=== PATIENT | male | born 1945 | race Caucasian/White ===

== ENCOUNTER 2022-04-23 09:46 | Inpatient (IN) ==
[2022-04-23] MEDS ORDERED: SODIUM CHLORIDE 0.9% 1000ML 1,000 ML IV SCH (10:15)
--- NOTE | 2022-04-23 11:07 | XRay Report ---
SINGLE VIEW CHEST CLINICAL HISTORY: Generalized weakness. FINDINGS: An AP, portable, upright chest radiograph is compared to study dated 02/12/2022 and correlate d with chest CT dated 04/22/2022. The cardiomediastinal silhouette is unremarkable. Emphysema and autographer oj interstitial thickening is similar to previous. A large left perihilar mass lesion is again noted . Minimal airspace opacities are seen in the left lower lobe. No large pleural effusion is identified . The right lung appears clear noting basilar scarring/atelectasis. No pneumothorax is seen. The skel etal structures are osteopenic. A pathological fracture of the distal right clavicle was better seen on yesterday's CT scan. Osteolytic lesion is suggested in the left proximal humerus. IMPRESSION: 1. Emphysema and a large left perihilar mass lesion are unchanged. 2. There are minimal airspace opacities in the left lower lobe. Correlate clinically for evidence of a mild postobstructive pneumonitis. 3. The right lung appears clear. 4. A pathological fracture and lytic lesion of the distal right clavicle was better seen on yesterday 's CT scan. 5. An osteolytic lesion is suggested in the left proximal humerus. ACT 112: Negative or not required by law. Electronically signed by: Paul Clayton M.D. 04/23/2022 11:06 AM
[2022-04-23 11:16] LABS: Appearance Urine Clear (Clear); Bacteria Urine Automated Negative (Negative); Bilirubin Urine Negative (Negative); Blood Urine Negative (Negative); Color Urine Dark Yellow; Glucose Urine UA Negative (Negative); Ketones Urine Negative (Negative); Leukocyte Esterase Urine Negative (Negative); Nitrite Urine Negative (Negative); Protein Urine Trace (Negative); Specific Gravity Urine 1.019 (1.000-1.030); Urobilinogen Urine Negative (Negative)
[2022-04-23 11:20] LABS: Albumin Globulin Ratio 0.7 (0.9-2); Albumin Level 2.5 gm/dl (3.4-5.0); BUN Creatinine Ratio 19.3 (10-20); Bilirubin,Total 0.6 mg/dl (0.2-1.0); Calcium 10.2 mg/dl (8.5-10.1); Creatinine Clr Calc Pharmacy 40.7 ml/min; Est GFR (African American) 53.5 ml/min; Est GFR (Non-African American) 46.1 ml/min; Globulin 3.5 gm/dl (2.5-4.0); Magnesium 1.8 mg/dl (1.7-2.4); Phosphorus 3.2 mg/dl (2.5-4.9); Potassium 3.3 mmol/L (3.5-5.1)
[2022-04-23 11:30] LABS: Calcium Oxalate Crystals Urine Present (None Prsent)
[2022-04-23 11:30] LABS: Anisocytosis Present; Basophils # (auto) 0.02 K/uL (0-0.2); Basophils % (auto) 0.4 %; Hematocrit (blood only) 24.6 % (40.1-51.0); Hemoglobin 7.5 g/dl (14.0-18.0); Immature Granulocytes # (auto) 0.22 K/uL (0.00-0.02); Lymphocytes # (auto) 0.82 K/uL (1.2-3.4); Mean Corpuscular Hemoglobin 27.7 pg (25.0-34.0); Mean Corpuscular Hgb Conc 30.5 g/dL (32.0-36.0); Mean Corpuscular Volume 90.8 fL (80.0-100.0); Mean Platelet Volume 11.2 fL (9.4-12.4); Monocytes # (auto) 0.43 K/uL (0.24-0.82); Monocytes % (auto) 7.9 %; Neutrophils # (auto) 3.97 K/uL (1.4-6.5); Neutrophils % (auto) 72.7 %; Platelet Count 77 K/uL (130-400); Platelet Estimate Decreased (Normal); RDW Coefficient of Variation 19.9 % (11.5-14.5); RDW Standard Deviation 58.4 fL (36.4-46.3); Red Blood Count 2.71 M/uL (4.63-6.08); White Blood Count 5.46 K/ul (4.8-10.8)
[2022-04-23 11:31] LABS: Mucus Urine Present (None Prsent); Renal Epithelial Cells Urine 0-5 /lpf (0-5)
[2022-04-23] MEDS ORDERED: SODIUM CHLORIDE 0.9% 250 ML IV PRN (11:44)
[2022-04-23] MEDS ORDERED: ACETAMINOPHEN 1,000 MG/100 ML VIAL IV STA (12:19)
--- NOTE | 2022-04-23 12:35 | Electrocardiogram Report ---
Test Reason : Blood Pressure : / mmHG Vent. Rate : 098 BPM Atrial Rate : 098 BPM P-R Int : 136 ms QRS Dur : 084 ms QT Int : 368 ms P-R-T Axes : 065 033 086 degrees QTc Int : 469 ms Poor data quality, interpretation may be adversely affected Sinus rhythm with Premature supraventricular complexes Low voltage QRS Nonspecific T wave abnormality Abnormal ECG When compared with ECG of 29-MAR-2010 02:20, Premature supraventricular complexes are now Present Confirmed by Rod Krause ([id number]) on 04/23/2022 12:35:25 PM Referred By: Vilma Kaiser Confirmed By:Eligio Krause
[2022-04-23] MEDS ORDERED: OPTIRAY 320 100ml IV ONE (13:23)
--- NOTE | 2022-04-23 13:51 | CT Scan Report ---
CT abd pelvis IV con only CLINICAL HISTORY: lung cancer, lower abd pain, anemia TECHNIQUE: Helical axial images of the abdomen and pelvis were obtained and displayed. Automated dose lowering techniques and/or adjustment according to patient size were utilized for this exam. This e xam was performed with intravenous contrast. CT DOSE: 507.65 mGycm COMPARISON: Comparison is made to CT chest 04/22/2022 and PET/CT 02/25/2022 FINDINGS: Lower chest: Overall similar appearance of bibasilar atelectasis and left lower lung airspace opacit y compared to prior CT chest 04/22/2022. Liver: Unremarkable. No focal lesions are seen. Gallbladder and biliary tree: The gallbladder is distended but unremarkable. No intra- or extrahepati c biliary ductal dilation. Pancreas: Unremarkable, no focal lesions. Spleen: Unremarkable. Adrenals: Unremarkable. Kidneys and ureters: There is a large right renal cyst. Additional smaller hypodensities are seen in the bilateral kidneys. Bladder: Tucker catheter is seen. Reproductive organs: Unremarkable. Bowel: A large stool burden is seen with possibly inspissated stool ball in the rectum. Mild rectal w all thickening is seen. Diverticulosis is seen without evidence of diverticulitis. Lymph nodes Retroperitoneal: Unremarkable. Mesenteric: Unremarkable. Pelvic: Unremarkable. Peritoneum: Normal. Vessels: Atherosclerotic calcifications are seen. Abdominal wall: Unremarkable. Bones: A right total hip arthroplasty is seen. Degenerative changes are seen in the spine at the leve l disc osteophyte disease. No definite bony lesions are seen. IMPRESSION: 1. There is a large stool burden with possibly inspissated stool ball in the rectum. There is mild r ectal wall thickening and stercoral colitis cannot be entirely excluded. 2. Similar appearance of bibasilar atelectasis and left lower lung airspace opacity compared to rece nt chest CT. 3. Bladder is decompressed by Tucker catheter. 4. Additional findings as above. ACT 112: Negative or not required by law. Electronically signed by: Sharad Johns M.D. 04/23/2022 1:50 PM
[2022-04-23] MEDS ORDERED: bisacodyL 10 MG SUPP PR STA (14:14)
[2022-04-23] MEDS ORDERED: POTASSIUM CHLORIDE / WTR 10 MEQ/100 ML PLCT IV SCH (14:30)
--- NOTE | 2022-04-23 15:42 | History & Physical Report ---
Date of Service April 23, 2022 Assessment & Plan (1) Squamous cell lung cancer: Plan: Diagnosed in 02/2022. S/p brain radiation & one dose of carboplatin/paclitaxel/pembrolizumab on 04/06/2022. - Now with anemia - likely bone marrow suppression from chemotherapy and cancer. No indication of acute bleeding. - Receiving 1 unit PRBCs in the ER; follow tomorrow - Family realistic about his case. Discussed the results of his chest CT to them from 04/22 and that it shows increasing cancer burden. Daughter asks for CM consult for extra home help. - Start Unasyn for possible post-obstructive pneumonitis - Wound care consult for sacral wounds Palliative care discussion started in the ER. Family may be receptive to home hospice if patient's condition does not improve, but I did not broach this in the acute setting. (2) Hypotension: Plan: BP in the ER was 90/50, but did dip down to 80/50 temporarily. Ddx includes hypovolemia (most likely) vs. sepsis. Hemorrhagic unlikely given clinical picture. - Aggressive fluid administration - Stat cortisol to r/o adrenal insufficiency (3) Fecal impaction: Plan: CT a/p on 04/23 notes "stool burden with possibly inspissated stool ball in the rectum." notes no BM in 2 days. - Continue Miralax PO - Fleet enema x 3 to attempt to loosen and relieve stool burden (4) DVT prophylaxis: Plan: Lovenox 40 mg SQ daily & SCDs -> Low concern for acute bleeding and patient is extremely high risk given age and active cancer. - Monitor hgb & platelets Extensive code discussion with patient and family - Patient willing to have 1 round of CPR/defibrillation (~5 minutes). No intubation or ventilation. Family willing to attempt central line and pressors for 1-2 days if needed. (5) Acute renal failure: History of Present Illness Primary Care Provider: Keanu Hayes PA-C 76yo M w/ hx of metastatic lung cancer who presents with failure to thrive at home. The patient was diagnosed with metastatic squamous cell carcinoma in 02/2022. He [facility] to [facility] and was started on dose-reduced carboplatin/paclitaxel/pembrolizumab on 04/06/2022. It is meant to be Q3w, so he has only received that one dose. Prior to that, he received radiation therapy to 3 lesions in the brain that are presumed to be metastatic lesions. His family notes that over the last 2 weeks, he has stopped eating and drinking. No nausea, vomiting, or diarrhea as they had worried, but just no appetite. They have to push him to consume anything. He has lost about 13 lbs in 3 weeks. He has also stopped drinking and hadn't had any urine output in almost 2 days, so this is why they brought him in. The patient reports to me some left-sided chest pain, but denies any shortness of breath, any pain elsewhere. Denies fevers/chills. notes some constipation, but has been giving him Miralax. Allergies Allergy/AdvReac Type Severity Reaction Status Date / Time Penicillins Allergy Unknown RXN Verified 04/03/22 13:12 UNKNOWN PER PT Home Medications Medication Instructions Recorded Confirmed Type multivitamin 1 tab PO QAM 11/26/21 04/23/22 History omega 8-erj-tsd-fish oil 1,000 mg 1 cap PO QAM 11/26/21 04/23/22 History (120 mg-180 mg) capsule (Fish Oil) Flutter Valve #1 ea 12/03/21 03/11/22 Rx albuterol sulfate 90 mcg/actuation 2 puff inhalation Q6H PRN 12/03/21 04/23/22 Rx aerosol inhaler Shortness Of Breath Or Wheezing #18 grams mirtazapine 15 mg tablet (Remeron) 15 mg PO QAM 04/03/22 04/23/22 History fluconazole 100 mg tablet 100 mg PO DAILY@1500 04/23/22 04/23/22 History (Diflucan) pembrolizumab 25 mg/mL intravenous 0 mg IV UD 04/23/22 04/23/22 History solution (Keytruda) umeclidinium 62.5 mcg-vilanterol 1 inh inhalation QAM 04/23/22 04/23/22 History 25 mcg/actuation powdr for inhalation (Anoro Ellipta) Past Med/Surg History Medical History Abnormal chest CT Cavitary pneumonia Chronic bronchitis COPD (chronic obstructive pulmonary disease) Elevated cholesterol Ex-smoker Exertional shortness of breath Lyme disease Pneumonia Surgical History History of right hip replacement S/P bronchoscopy S/P left rotator cuff repair Status post right knee replacement Family History Brother Cancer Several brothers with cancer dx Father Cancer Mother Myocardial infarction Social History Smoking Status: Former smoker Hx Alcohol Use: No Hx Substance Use: No Preferred Language: Luxembourgish Communication Ability: Effective Visual Impairment: No Limitations Hearing Ability: Hard of Hearing Computer Networker Required: No Beliefs That Will Affect Care: None marital status: Current Living Situation: Spouse current occupational status: retired Feels Safe at Home: Yes caffeine: Yes Physical Activity Frequency: Does not Exercise Assistive Devices: None Review of Systems Review of Systems: All systems reviewed & are unremarkable except as noted in HPI & below Physical Exam Constitutional: + ill appearing, + frail appearing and + in distress Eyes: EOM intact bilaterally; no conjunctival abnormality ENMT: external ear and nose normal, oropharynx normal Neck: trachea midline, no thyromegaly normal visual inspection Respiratory: normal respiratory effort, lungs clear to auscultation no respiratory distress Cardiovascular: RRR, no murmur, no edema Gastrointestinal (Abdomen): Inspection/Auscultation: abdomen normal to inspection; abdomen not distended Musculoskeletal: no cyanosis or clubbing, extremities motor strength 5/5 Skin: no rashes, warm and dry Neurologic: moves all extremities and awake Psychiatric: Orientation: alert, oriented to person and cooperative Results & Data Results & Data ([facility]) Vital Signs (Past 12 Hours) Vital Signs Temp Pulse Pulse Resp BP BP Pulse Ox 04/23/22 15:00 36.3 C L 68 20 89/48 L 97 04/23/22 14:45 36.3 C L 70 18 88/53 L 98 04/23/22 14:44 36.3 C L 70 18 89/53 L 97 04/23/22 14:29 36.4 C L 75 16 89/54 L 99 04/23/22 13:57 75 16 94/50 L 99 04/23/22 12:54 77 16 107/55 L 100 04/23/22 12:02 86 16 90/59 L 96 04/23/22 11:28 81 16 101/57 L 98 04/23/22 10:46 94 H 16 82/53 L 94 04/23/22 10:45 94 04/23/22 09:50 36.5 C 71 18 76/49 L 98 O2 Del Method 04/23/22 15:00 04/23/22 14:45 04/23/22 14:44 04/23/22 14:29 04/23/22 13:57 Room Air 04/23/22 12:54 Room Air 04/23/22 12:02 Room Air 04/23/22 11:28 Room Air 04/23/22 10:46 Room Air 04/23/22 10:45 Room Air 04/23/22 09:50 Room Air Code Status & VTE Plan VTE Prophylaxis Plan VTE Prophylaxis will be ordered: Yes PG Care Time/CCT Total # of Minutes Spent Total Time Spent with Patient: Total time spent is greater than 50% in coordination of care (as documented) at patient's floor/unit and/or counseling patient: Coding Level of Care Code 74603 Initial Inpt Care Lvl 3 Diagnoses Squamous cell lung cancer C34.90 Hypotension I95.9 Fecal impaction K56.41 DVT prophylaxis Z29.9 Acute renal failure N17.9
[2022-04-23] MEDS ORDERED: ALBUTEROL HFA 8 GM INHALER INH PRN (18:22)
[2022-04-23] MEDS ORDERED: ONDANSETRON INJ 2 MG/ML 2 ML VIAL IV PRN (18:22)
[2022-04-23] MEDS ORDERED: POTASSIUM CHLORIDE 40 MEQ in SODIUM CHLORIDE 0.9% 1000ML 1,000 ML IV SCH (18:30)
[2022-04-23] MEDS: AMPICILLIN/SULBACTAM SOD 3,000 MG in 0.9 % SODIUM CHLORIDE 100 ML IV SCH (19:50)
[2022-04-23] MEDS: POLYETHYLENE (MIRALAX) 17 GM PACK PO SCH (20:06)
[2022-04-23] MEDS: SOD PHOSPHATE/SOD BIPHOSPHATE ENEMA 132 ML BTL PR SCH (20:06)
[2022-04-24] MEDS: AMPICILLIN/SULBACTAM SOD 3,000 MG in 0.9 % SODIUM CHLORIDE 100 ML IV SCH ×4 (01:10→18:15)
[2022-04-24 07:19] LABS: Hematocrit (blood only) 24.8 % (40.1-51.0); Hemoglobin 7.8 g/dl (14.0-18.0); Mean Corpuscular Hemoglobin 27.9 pg (25.0-34.0); Mean Corpuscular Hgb Conc 31.5 g/dL (32.0-36.0); Mean Corpuscular Volume 88.6 fL (80.0-100.0); Mean Platelet Volume 10.5 fL (9.4-12.4); Platelet Count 66 K/uL (130-400); RDW Coefficient of Variation 20.1 % (11.5-14.5); RDW Standard Deviation 56.6 fL (36.4-46.3); White Blood Count 6.08 K/ul (4.8-10.8)
[2022-04-24] MEDS: SOD PHOSPHATE/SOD BIPHOSPHATE ENEMA 132 ML BTL PR SCH (07:31)
[2022-04-24 07:47] LABS: Albumin Globulin Ratio 0.7 (0.9-2); Albumin Level 2.1 gm/dl (3.4-5.0); BUN Creatinine Ratio 29.6 (10-20); Bilirubin,Total 0.5 mg/dl (0.2-1.0); Calcium 8.9 mg/dl (8.5-10.1); Creatinine Clr Calc Pharmacy 52.6 ml/min; Est GFR (African American) 85.8 ml/min; Est GFR (Non-African American) 74.1 ml/min; Globulin 3.1 gm/dl (2.5-4.0); Magnesium 1.7 mg/dl (1.7-2.4); Phosphorus 3.1 mg/dl (2.5-4.9); Potassium 3.6 mmol/L (3.5-5.1); Total Protein 5.2 gm/dl (6.0-8.3)
[2022-04-24] MEDS: UMECLIDINIUM/VILANTEROL 62.5/25MCG 7 PUFFS/INHALER INH SCH (08:11)
[2022-04-24] MEDS: POLYETHYLENE (MIRALAX) 17 GM PACK PO SCH (08:12)
[2022-04-24] MEDS: ENOXAPARIN INJ 40 MG/0.4 ML SYR SQ SCH (08:15)
[2022-04-24] MEDS ORDERED: SODIUM CHLORIDE 0.9% 250 ML IV PRN (08:40)
[2022-04-24] MEDS ORDERED: MIRTAZAPINE TAB 15 MG TAB PO SCH (09:00)
--- NOTE | 2022-04-24 13:35 | Hospitalist Progress Note ---
Date of Service April 24, 2022 Assessment & Plan (1) Squamous cell lung cancer: Plan: Diagnosed in 02/2022 in the left lung.. With mets to the liver, brain, lymph nodes, and now with recent evidence of mets to the bones on CT chest 04/22. Now s/p brain radiation & one dose of carboplatin/paclitaxel/pembrolizumab on 04/06/2022. Since starting chemotherapy, has had significant failure to thrive, weight loss, low appetite, and now here with anemia and thrombocytopenia secondary to antineoplastic therapy -Supportive care, IV fluids, nutritional support with boost added, and treatment for postobstructive pneumonia, as well as transfusional support as below given Notified his oncologist that he is in house - Family realistic about his case. Discussed the results of his chest CT to them from 04/22 and that it shows increasing cancer burden in the bones. Daughter a sks for CM consult for extra home help. Consider palliative consultation if continues to deteriorate -Most likely, his upcoming chemotherapy next week will be delayed-we will discuss with his oncologist -Continue mirtazapine for appetite stimulation and he also recently got his medical card in the mail but has not started this yet (2) Pancytopenia due to antineoplastic chemotherapy: Plan: Hemoglobin down to 7.5 on arrival, only up to 7.8 after 1 unit PRBCs Transfuse 1 more unit PRBCs today Follow CBC in the morning Thrombocytopenia with platelets down to 66-monitor and hold Lovenox if drops below 50 Monitor for bleeding (3) Acute renal failure: Plan: Creatinine elevated on arrival at 1.45 secondary to dehydration from poor p.o. intake Now improved with IV fluids Follow BMP (4) Hypotension: Plan: Blood pressures remain borderline hypotensive with MAP 60-65 Secondary to hypovolemia and less likely sepsis cortisol to r/o adrenal insufficiency ordered and is normal Continue IV fluid hydration, PRBC transfusion for volume support (5) Pneumonia: Plan: Continue Unasyn for postobstructive pneumonia Transition Augmentin when taking p.o. better (6) Fecal impaction: Plan: CT a/p on 04/23 notes "stool burden with possibly inspissated stool ball in the rectum." notes no BM in 2 days prior to admission -Now with multiple bowel movements after fleets enema Follow Tucker catheter placed for presumed urinary retention-this may resolve now that his fecal impaction is resolved (7) Pathologic fracture: Plan: Right distal clavicle also with osteolytic bone lesion left proximal humerus seen on xray and osteolytic lesions seen on chest CT 04/22 -caution with handling him for care discussed with RN due to being at risk for fractures (8) Severe protein-calorie malnutrition: Plan: add Boost BMI 17.6 2/2 metastatic CA and chemotherapy (9) COVID: Plan: old infection from 6 weeks ago when multiple family members also had COVID. Because he tested positive on a home test at that time, Infection Control policy is to keep him on isolation precautions here no treatment needed as I do not believe he has active COVID (10) Sacral decubitus ulcer: Plan: Wound care consulted Offload pressure (11) Generalized weakness: Plan: Secondary to chemotherapy effect, anemia, dehydration Treating all of these things as above PT/OT consults placed (12) DVT prophylaxis: Plan: Lovenox 40 mg SQ daily & SCDs -> Low concern for acute bleeding and patient is extremely high risk given age and active cancer. - Monitor hgb & platelets Extensive code discussion with patient and family - Patient willing to have 1 round of CPR/defibrillation (~5 minutes). No intubation or ventilation. Family willing to attempt central line and pressors for 1-2 days if needed. Disposition-continued stay Admission and Anticipated Discharge Date Admission Date: April 23, 2022 Subjective Pt reports feeling very tired, weak, low appetite. Is having multiple BMs today after being given fleets enemas overnight as per RN. Denies CP, SOB. Telemetry with normal sinus rhythm, normal rates I discussed his care with his on the phone. She is requesting that he be on boost supplements. Review of Systems Review of Systems: All systems reviewed & are unremarkable except as noted in HPI & below Physical Exam Constitutional: + ill appearing and + cachectic; no acute distress Eyes: + anicteric sclerae ENMT: Nose: no external nose abnormality Neck: trachea midline, no thyromegaly Respiratory: normal respiratory effort; no labored breathing Auscultation: + crackles (Bilateral lower and middle lung quintero); no wheezes Cardiovascular: RRR, no murmur, no edema Gastrointestinal (Abdomen): normal bowel sounds, soft, nontender, no hepatosplenomegaly Musculoskeletal: Extremities: extremities normal to inspection; no cyanosis and no clubbing Skin: no rashes, warm and dry Neurologic: moves all extremities and awake; no focal motor deficits Psychiatric: Orientation: alert, oriented to person and cooperative Results & Data Results & Data ([facility]) Vital Signs (Past 12 Hours) Vital Signs Temp Pulse Pulse Resp BP BP Pulse Ox 04/24/22 12:55 36.7 C 93 H 18 84/55 L 96 04/24/22 12:20 36.4 C L 86 16 97/44 L 97 04/24/22 12:11 36.4 C L 87 18 109/54 L 91 04/24/22 11:20 36.4 C L 87 18 109/54 L 91 04/24/22 10:20 36.6 C 87 18 98/58 L 96 04/24/22 10:03 82 04/24/22 09:50 36.7 C 88 16 85/51 L 97 04/24/22 09:35 36.1 C L 90 16 83/51 L 98 04/24/22 09:19 36.2 C L 88 16 88/57 L 95 04/24/22 07:38 36.8 C 81 20 90/50 L 92 04/24/22 03:30 36.4 C L 86 20 99/60 L 92 O2 Del Method 04/24/22 12:55 04/24/22 12:20 04/24/22 12:11 04/24/22 11:20 04/24/22 10:20 04/24/22 10:03 04/24/22 09:50 04/24/22 09:35 04/24/22 09:19 04/24/22 07:38 Room Air 04/24/22 03:30 Room Air Laboratory Results 04/24/22 04/24/22 04/24/22 Range/Units 07:12 07:12 07:12 WBC 6.08 (4.8-10.8) K/ul RBC 2.80 L (4.63-6.08) M/uL Hgb 7.8 L (14.0-18.0) g/dl Hct 24.8 L (40.1-51.0) % MCV 88.6 (80.0-100.0) fL MCH 27.9 (25.0-34.0) pg MCHC 31.5 L (32.0-36.0) g/dL RDW Std Deviation 56.6 H (36.4-46.3) fL RDW Coeff of Ivett 20.1 H (11.5-14.5) % Plt Count 66 L (130-400) K/uL MPV 10.5 (9.4-12.4) fL Sodium 148 H (136-145) mmol/L Potassium 3.6 (3.5-5.1) mmol/L Chloride 113 H (98-107) mmol/L Carbon Dioxide 27 (21-32) mmol/L Anion Gap 8 (3-11) BUN 29 H (6-23) mg/dl Creatinine 0.98 D (0.6-1.4) mg/dl Est Cr Clr Drug Dosing 52.6 ml/min Est GFR ( Amer) 85.8 ml/min Est GFR (Non-Af Amer) 74.1 ml/min BUN/Creatinine Ratio 29.6 H (10-20) Glucose 69 L (70-99(Fasting)) mg/dl Calcium 8.9 (8.5-10.1) mg/dl Phosphorus 3.1 (2.5-4.9) mg/dl Magnesium 1.7 (1.7-2.4) mg/dl Total Bilirubin 0.5 (0.2-1.0) mg/dl AST 14 (13-39) U/L ALT 12 (7-52) U/L Alkaline Phosphatase 78 (34-104) U/L Total Protein 5.2 L (6.0-8.3) gm/dl Albumin 2.1 L (3.4-5.0) gm/dl Globulin 3.1 (2.5-4.0) gm/dl Albumin/Globulin Ratio 0.7 L (0.9-2) Procalcitonin (0-0.5) ng/ml Cortisol AM Sample 19.60 (6.2-22.6) mcg/dl Blood Type Antibody Screen Crossmatch 04/23/22 04/23/22 Range/Units 11:51 10:45 WBC (4.8-10.8) K/ul RBC (4.63-6.08) M/uL Hgb (14.0-18.0) g/dl Hct (40.1-51.0) % MCV (80.0-100.0) fL MCH (25.0-34.0) pg MCHC (32.0-36.0) g/dL RDW Std Deviation (36.4-46.3) fL RDW Coeff of Ivett (11.5-14.5) % Plt Count (130-400) K/uL MPV (9.4-12.4) fL Sodium (136-145) mmol/L Potassium (3.5-5.1) mmol/L Chloride (98-107) mmol/L Carbon Dioxide (21-32) mmol/L Anion Gap (3-11) BUN (6-23) mg/dl Creatinine (0.6-1.4) mg/dl Est Cr Clr Drug Dosing ml/min Est GFR ( Amer) ml/min Est GFR (Non-Af Amer) ml/min BUN/Creatinine Ratio (10-20) Glucose (70-99(Fasting)) mg/dl Calcium (8.5-10.1) mg/dl Phosphorus (2.5-4.9) mg/dl Magnesium (1.7-2.4) mg/dl Total Bilirubin (0.2-1.0) mg/dl AST (13-39) U/L ALT (7-52) U/L Alkaline Phosphatase (34-104) U/L Total Protein (6.0-8.3) gm/dl Albumin (3.4-5.0) gm/dl Globulin (2.5-4.0) gm/dl Albumin/Globulin Ratio (0.9-2) Procalcitonin 0.44 (0-0.5) ng/ml Cortisol AM Sample (6.2-22.6) mcg/dl Blood Type A Positive Antibody Screen NEGATIVE Crossmatch See Detail PG Care Time/CCT Total # of Minutes Spent Total Time Spent with Patient: Total time spent is greater than 50% in coordination of care (as documented) at patient's floor/unit and/or counseling patient: Coding Level of Care Code 72338 Subseq Hosp Care Lvl 3 Diagnoses Squamous cell lung cancer C34.90 Pancytopenia due to antineoplastic chemotherapy D61.810; T45.1X5A Acute renal failure N17.9 Hypotension I95.9 Pneumonia J18.9 Fecal impaction K56.41 Pathologic fracture M84.40XA Severe protein-calorie malnutrition E43 COVID U07.1 Sacral decubitus ulcer L89.159 Generalized weakness R53.1 DVT prophylaxis Z29.9
[2022-04-24] MEDS: LACTATED RINGER'S 1,000 ML IV SCH ×2 (14:19→23:08)
[2022-04-24] MEDS: FLUCONAZOLE 100 MG TAB PO SCH (14:20)
[2022-04-24] MEDS ORDERED: LACTATED RINGER'S 250 ML IV ONE (15:52)
--- NOTE | 2022-04-24 17:21 | Emergency Department Note ---
Impression & Plan Metastatic primary lung cancer, Fecal impaction, Acute urinary retention, Acute dehydration ED Provider Note CHIEF COMPLAINT: Unable to void, decreased p.o. intake, metastatic lung cancer HISTORY OF PRESENT ILLNESS: This 76-year-old male patient presents to the emergency department with complaints of lower abdominal pain and decreased urine output. Family states he has had a decreased p.o. intake and has been dwindling over the last several days. He is currently under treatment for lung cancer and his states she is concerned he is not strong enough to get his next treatment next week. She denies any recent fevers, chills, chest pain or shortness of breath. The patient was scheduled to see pulmonary medicine today in follow-up but was unable to make it as he needed to come to the emergency department. He has not had any recent falls. Daughter states he really will not eat or drink. REVIEW OF SYSTEMS: A review of systems was performed with positives and pertinent negatives listed in the history of present illness. 10 systems were reviewed and are otherwise negative. ALLERGIES: see below MEDICATIONS: see below PMH: see below SOCIAL HISTORY: see below DDx:Infection, dehydration, metabolic abnormality, hypo/hyperglycemia, electrolyte disturbance, anemia, hypoxia, cardiac sources, intracerebral event, toxicologic, neurologic, as well as other pathologies. PHYSICAL EXAM: Vital signs reviewed. General: Chronically ill appearing 76 yo male, in no significant distress. HEENT: No scleral icterus, PERRLA, neck supple. Atraumatic. Cardiovascular: Regular rate and rhythm, no extra sounds. Pulmonary: Clear to auscultation bilaterally, normal work of breathing. Abdomen: Soft, mild tenderness to palpation to suprapubic region, nondistended, positive bowel sounds. Musculoskeletal: Atraumatic, no peripheral edema. Neurologic: Patient awake alert and oriented x 3 Skin: Warm, dry, no rash EMERGENCY DEPARTMENT COURSE/MDM: She was evaluated and appeared to be in no significant distress. IV access was obtained and laboratory work was drawn. Bladder scan was performed and 100 cc of urine in the bladder. A Tucker catheter was placed and there was some dark urine drained. IV hydration was initiated. The patient did receive IV Tylenol for his discomfort. Patient was noted to be hypotensive which persisted despite IV hydration. He was typed and crossed for 2 units of PRBCs as he is noted to be anemic at 7.5. Stool is guaiac negative. Patient was consented for blood transfusion and 1 unit PRBCs was ordered for transfusion. Case was discussed with the hospitalist service will evaluate the patient for admission and further management. Patient's family is aware of the plan and agrees. MONITORING: An order for cardiac monitoring was placed and the patient is noted to be in a normal sinus rhythm at 81 beats per minute. RADIOLOGY: see below DISPOSITION: Patient I have personally spent 35 minutes of critical care time in the direct management of this patient. This was a life/limb threatening event. This 35 minutes is in excess of all separately billable procedures. Past Med/Surg History Medical History Abnormal chest CT Cavitary pneumonia Chronic bronchitis COPD (chronic obstructive pulmonary disease) Elevated cholesterol Ex-smoker Exertional shortness of breath Lyme disease Pathologic fracture Pneumonia Severe protein-calorie malnutrition Surgical History History of right hip replacement S/P bronchoscopy S/P left rotator cuff repair Status post right knee replacement Family History Brother Cancer Several brothers with cancer dx Father Cancer Mother Myocardial infarction Social History Smoking Status: Current some day smoker Hx Alcohol Use: Yes Hx Substance Use: No Preferred Language: Guamanian Communication Ability: Effective Visual Impairment: No Limitations Hearing Ability: Hard of Hearing Statistical Clerk Advertising Required: No Beliefs That Will Affect Care: Moravian marital status: Current Living Situation: Spouse current occupational status: retired Feels Safe at Home: No Is there a partner from a previous relationship who is making you feel unsafe now?: No caffeine: Yes Physical Activity Frequency: Does not Exercise Assistive Devices: Raised Toilet Seat, Walker and Wheelchair Allergies Allergies Allergy/AdvReac Type Severity Reaction Status Date / Time Penicillins Allergy Unknown RXN Verified 04/03/22 13:12 UNKNOWN PER PT Home Meds Home Medications Medication Instructions Recorded Confirmed multivitamin 1 tab PO QAM 11/26/21 04/23/22 omega 4-jto-zmn-fish oil 1,000 mg 1 cap PO QAM 11/26/21 04/23/22 (120 mg-180 mg) capsule (Fish Oil) mirtazapine 15 mg tablet (Remeron) 15 mg PO QAM 04/03/22 04/23/22 fluconazole 100 mg tablet 100 mg PO DAILY@1500 04/23/22 04/23/22 (Diflucan) pembrolizumab 25 mg/mL intravenous 0 mg IV UD 04/23/22 04/23/22 solution (Keytruda) umeclidinium 62.5 mcg-vilanterol 1 inh inhalation QAM 04/23/22 04/23/22 25 mcg/actuation powdr for inhalation (Anoro Ellipta) Previous Rx's Medication Instructions Recorded Flutter Valve #1 ea 12/03/21 albuterol sulfate 90 mcg/actuation 2 puff inhalation Q6H PRN 12/03/21 aerosol inhaler Shortness Of Breath Or Wheezing #18 grams Results & Data (ED) Home Medications Current Medication List: was personally reviewed by me Laboratory Data Attestation: I reviewed the patient's lab results. Result diagrams: 04/27/22 06:25 04/27/22 06:25 Lab Results 04/23/22 04/23/22 04/23/22 Range/Units 10:41 10:41 10:41 WBC 5.46 (4.8-10.8) K/ul RBC 2.71 L (4.63-6.08) M/uL Hgb 7.5 L (14.0-18.0) g/dl Hct 24.6 L (40.1-51.0) % MCV 90.8 (80.0-100.0) fL MCH 27.7 (25.0-34.0) pg MCHC 30.5 L (32.0-36.0) g/dL RDW Std Deviation 58.4 H (36.4-46.3) fL RDW Coeff of Ivett 19.9 H (11.5-14.5) % Plt Count 77 L (130-400) K/uL MPV 11.2 (9.4-12.4) fL Immature Gran % (Auto) 4.0 % Neut % (Auto) 72.7 % Lymph % (Auto) 15.0 % [place] % (Auto) 7.9 % Eos % (Auto) 0.0 % Baso % (Auto) 0.4 % Neut # (Auto) 3.97 (1.4-6.5) K/uL Lymph # (Auto) 0.82 L (1.2-3.4) K/uL [place] # (Auto) 0.43 (0.24-0.82) K/uL Eos # (Auto) 0.00 (0-0.50) K/uL Baso # (Auto) 0.02 (0-0.2) K/uL Immature Gran # (Auto) 0.22 H (0.00-0.02) K/uL Platelet Estimate Decreased L (Normal) Anisocytosis Present Sodium 145 (136-145) mmol/L Potassium 3.3 L (3.5-5.1) mmol/L Chloride 106 (98-107) mmol/L Carbon Dioxide 27 (21-32) mmol/L Anion Gap 12 H (3-11) BUN 28 H (6-23) mg/dl Creatinine 1.45 H (0.6-1.4) mg/dl Est Cr Clr Drug Dosing 40.7 ml/min Est GFR ( Amer) 53.5 ml/min Est GFR (Non-Af Amer) 46.1 ml/min BUN/Creatinine Ratio 19.3 (10-20) Glucose 153 H (70-99(Fasting)) mg/dl Calcium 10.2 H (8.5-10.1) mg/dl Phosphorus 3.2 (2.5-4.9) mg/dl Magnesium 1.8 (1.7-2.4) mg/dl Total Bilirubin 0.6 (0.2-1.0) mg/dl AST 19 (13-39) U/L ALT 15 (7-52) U/L Alkaline Phosphatase 91 (34-104) U/L Total Protein 6.0 (6.0-8.3) gm/dl Albumin 2.5 L (3.4-5.0) gm/dl Globulin 3.5 (2.5-4.0) gm/dl Albumin/Globulin Ratio 0.7 L (0.9-2) Procalcitonin (0-0.5) ng/ml TSH 2.384 (0.300-4.500) uIu/ml Urine Color Urine Appearance (Clear) Urine pH (4.5-7.5) Ur Specific [place] (1.000-1.030) Urine Protein (Negative) Urine Glucose (UA) (Negative) Urine Ketones (Negative) Urine Blood (Negative) Urine Nitrite (Negative) Urine Bilirubin (Negative) Urine Urobilinogen (Negative) Ur Leukocyte Esterase (Negative) Urine WBC (Auto) (0-5) /hpf Urine RBC (Auto) (0-4) /hpf U Hyaline Cast (Auto) (0-5) /lpf U Epithel Cells (Auto) (0-5) /lpf Urine Bacteria (Auto) (Negative) Ur Renal Epithelial Cell (0-5) /lpf Urine Crystals Calcium Oxalate Crystal (None Prsent) Granular Casts (0) /lpf Urine Mucus (None Prsent) SARS-CoV-2, RNA, NAAT (NEGATIVE) Blood Type Antibody Screen Crossmatch 04/23/22 04/23/22 04/23/22 Range/Units 10:41 10:45 10:55 WBC (4.8-10.8) K/ul RBC (4.63-6.08) M/uL Hgb (14.0-18.0) g/dl Hct (40.1-51.0) % MCV (80.0-100.0) fL MCH (25.0-34.0) pg MCHC (32.0-36.0) g/dL RDW Std Deviation (36.4-46.3) fL RDW Coeff of Ivett (11.5-14.5) % Plt Count (130-400) K/uL MPV (9.4-12.4) fL Immature Gran % (Auto) % Neut % (Auto) % Lymph % (Auto) % [place] % (Auto) % Eos % (Auto) % Baso % (Auto) % Neut # (Auto) (1.4-6.5) K/uL Lymph # (Auto) (1.2-3.4) K/uL [place] # (Auto) (0.24-0.82) K/uL Eos # (Auto) (0-0.50) K/uL Baso # (Auto) (0-0.2) K/uL Immature Gran # (Auto) (0.00-0.02) K/uL Platelet Estimate (Normal) Anisocytosis Sodium (136-145) mmol/L Potassium (3.5-5.1) mmol/L Chloride (98-107) mmol/L Carbon Dioxide (21-32) mmol/L Anion Gap (3-11) BUN (6-23) mg/dl Creatinine (0.6-1.4) mg/dl Est Cr Clr Drug Dosing ml/min Est GFR ( Amer) ml/min Est GFR (Non-Af Amer) ml/min BUN/Creatinine Ratio (10-20) Glucose (70-99(Fasting)) mg/dl Calcium (8.5-10.1) mg/dl Phosphorus (2.5-4.9) mg/dl Magnesium (1.7-2.4) mg/dl Total Bilirubin (0.2-1.0) mg/dl AST (13-39) U/L ALT (7-52) U/L Alkaline Phosphatase (34-104) U/L Total Protein (6.0-8.3) gm/dl Albumin (3.4-5.0) gm/dl Globulin (2.5-4.0) gm/dl Albumin/Globulin Ratio (0.9-2) Procalcitonin 0.44 (0-0.5) ng/ml TSH (0.300-4.500) uIu/ml Urine Color Dark Yellow Urine Appearance Clear (Clear) Urine pH 5.0 (4.5-7.5) Ur Specific [place] 1.019 (1.000-1.030) Urine Protein Trace H (Negative) Urine Glucose (UA) Negative (Negative) Urine Ketones Negative (Negative) Urine Blood Negative (Negative) Urine Nitrite Negative (Negative) Urine Bilirubin Negative (Negative) Urine Urobilinogen Negative (Negative) Ur Leukocyte Esterase Negative (Negative) Urine WBC (Auto) 1-5 (0-5) /hpf Urine RBC (Auto) 10-30 H (0-4) /hpf U Hyaline Cast (Auto) 1-5 (0-5) /lpf U Epithel Cells (Auto) 5-10 H (0-5) /lpf Urine Bacteria (Auto) Negative (Negative) Ur Renal Epithelial Cell 0-5 (0-5) /lpf Urine Crystals Not Reportable Calcium Oxalate Crystal Present A (None Prsent) Granular Casts 1-5 H (0) /lpf Urine Mucus Present A (None Prsent) SARS-CoV-2, RNA, NAAT POSITIVE A* (NEGATIVE) Blood Type Antibody Screen Crossmatch 04/23/22 Range/Units 11:51 WBC (4.8-10.8) K/ul RBC (4.63-6.08) M/uL Hgb (14.0-18.0) g/dl Hct (40.1-51.0) % MCV (80.0-100.0) fL MCH (25.0-34.0) pg MCHC (32.0-36.0) g/dL RDW Std Deviation (36.4-46.3) fL RDW Coeff of Ivett (11.5-14.5) % Plt Count (130-400) K/uL MPV (9.4-12.4) fL Immature Gran % (Auto) % Neut % (Auto) % Lymph % (Auto) % [place] % (Auto) % Eos % (Auto) % Baso % (Auto) % Neut # (Auto) (1.4-6.5) K/uL Lymph # (Auto) (1.2-3.4) K/uL [place] # (Auto) (0.24-0.82) K/uL Eos # (Auto) (0-0.50) K/uL Baso # (Auto) (0-0.2) K/uL Immature Gran # (Auto) (0.00-0.02) K/uL Platelet Estimate (Normal) Anisocytosis Sodium (136-145) mmol/L Potassium (3.5-5.1) mmol/L Chloride (98-107) mmol/L Carbon Dioxide (21-32) mmol/L Anion Gap (3-11) BUN (6-23) mg/dl Creatinine (0.6-1.4) mg/dl Est Cr Clr Drug Dosing ml/min Est GFR ( Amer) ml/min Est GFR (Non-Af Amer) ml/min BUN/Creatinine Ratio (10-20) Glucose (70-99(Fasting)) mg/dl Calcium (8.5-10.1) mg/dl Phosphorus (2.5-4.9) mg/dl Magnesium (1.7-2.4) mg/dl Total Bilirubin (0.2-1.0) mg/dl AST (13-39) U/L ALT (7-52) U/L Alkaline Phosphatase (34-104) U/L Total Protein (6.0-8.3) gm/dl Albumin (3.4-5.0) gm/dl Globulin (2.5-4.0) gm/dl Albumin/Globulin Ratio (0.9-2) Procalcitonin (0-0.5) ng/ml TSH (0.300-4.500) uIu/ml Urine Color Urine Appearance (Clear) Urine pH (4.5-7.5) Ur Specific [place] (1.000-1.030) Urine Protein (Negative) Urine Glucose (UA) (Negative) Urine Ketones (Negative) Urine Blood (Negative) Urine Nitrite (Negative) Urine Bilirubin (Negative) Urine Urobilinogen (Negative) Ur Leukocyte Esterase (Negative) Urine WBC (Auto) (0-5) /hpf Urine RBC (Auto) (0-4) /hpf U Hyaline Cast (Auto) (0-5) /lpf U Epithel Cells (Auto) (0-5) /lpf Urine Bacteria (Auto) (Negative) Ur Renal Epithelial Cell (0-5) /lpf Urine Crystals Calcium Oxalate Crystal (None Prsent) Granular Casts (0) /lpf Urine Mucus (None Prsent) SARS-CoV-2, RNA, NAAT (NEGATIVE) Blood Type A Positive Antibody Screen NEGATIVE Crossmatch See Detail Administered Medications Enoxaparin Sodium (Enoxaparin Inj 40 Mg/0.4 Ml Syr) 40 mg SQ QAM [facility] Stop: 05/24/22 08:59 Last Admin: 04/28/22 09:41 Dose: 40 mg Documented By: Admin: 04/27/22 08:17 Dose: 40 mg Documented By: Admin: 04/26/22 09:32 Dose: 40 mg Documented By: Admin: 04/25/22 09:36 Dose: 40 mg Documented By: Admin: 04/24/22 08:15 Dose: 40 mg Documented By: Ampicillin Sodium/Sulbactam Sodium 3,000 mg/ Sodium Chloride 108 mls @ 200 mls/hr IV Q6H [facility]; Protocol Stop: 04/30/22 18:59 Last Infusion: 04/28/22 12:52 Dose: 0 mls/hr Documented By: Admin: 04/28/22 12:05 Dose: 200 mls/hr Documented By: Infusion: 04/28/22 06:41 Dose: 0 mls/hr Documented By: Admin: 04/28/22 06:03 Dose: 200 mls/hr Documented By: Infusion: 04/28/22 01:54 Dose: 0 mls/hr Documented By: Admin: 04/28/22 01:17 Dose: 200 mls/hr Documented By: Infusion: 04/27/22 18:29 Dose: 0 mls/hr Documented By: Admin: 04/27/22 17:46 Dose: 200 mls/hr Documented By: Infusion: 04/27/22 14:29 Dose: 0 mls/hr Documented By: Admin: 04/27/22 12:22 Dose: 200 mls/hr Documented By: Infusion: 04/27/22 06:45 Dose: 0 mls/hr Documented By: Admin: 04/27/22 06:07 Dose: 200 mls/hr Documented By: Infusion: 04/27/22 01:30 Dose: 0 mls/hr Documented By: Admin: 04/27/22 00:52 Dose: 200 mls/hr Documented By: Infusion: 04/26/22 21:58 Dose: 0 mls/hr Documented By: Admin: 04/26/22 20:19 Dose: 200 mls/hr Documented By: Infusion: 04/26/22 13:23 Dose: 0 mls/hr Documented By: Admin: 04/26/22 12:44 Dose: 200 mls/hr Documented By: Infusion: 04/26/22 10:39 Dose: 0 mls/hr Documented By: Admin: 04/26/22 08:50 Dose: 200 mls/hr Documented By: Infusion: 04/26/22 03:14 Dose: 0 mls/hr Documented By: Admin: 04/26/22 02:35 Dose: 200 mls/hr Documented By: Infusion: 04/25/22 18:46 Dose: 0 mls/hr Documented By: Admin: 04/25/22 18:06 Dose: 200 mls/hr Documented By: Infusion: 04/25/22 12:52 Dose: 0 mls/hr Documented By: Admin: 04/25/22 12:10 Dose: 200 mls/hr Documented By: Infusion: 04/25/22 09:42 Dose: 0 mls/hr Documented By: Admin: 04/25/22 06:11 Dose: 200 mls/hr Documented By: Infusion: 04/25/22 01:18 Dose: 0 mls/hr Documented By: Admin: 04/25/22 00:44 Dose: 200 mls/hr Documented By: Infusion: 04/24/22 19:05 Dose: 0 mls/hr Documented By: Admin: 04/24/22 18:15 Dose: 200 mls/hr Documented By: Infusion: 04/24/22 13:58 Dose: 0 mls/hr Documented By: Admin: 04/24/22 12:58 Dose: 200 mls/hr Documented By: Infusion: 04/24/22 08:10 Dose: 0 mls/hr Documented By: Admin: 04/24/22 07:28 Dose: 200 mls/hr Documented By: Infusion: 04/24/22 01:45 Dose: 0 mls/hr Documented By: Admin: 04/24/22 01:10 Dose: 200 mls/hr Documented By: Infusion: 04/23/22 21:19 Dose: 0 mls/hr Documented By: Admin: 04/23/22 19:50 Dose: 200 mls/hr Documented By: AMM Dextrose/Lactated Ringer's (D5w And Lactated Ringers) 1,000 mls @ 80 mls/hr IV .[id number] [facility] Stop: 05/25/22 08:59 Last Admin: 04/28/22 12:04 Dose: Not Given Documented By: Admin: 04/28/22 09:41 Dose: 80 mls/hr Documented By: Infusion: 04/28/22 00:52 Dose: 80 mls/hr Documented By: Admin: 04/27/22 12:22 Dose: 80 mls/hr Documented By: Infusion: 04/27/22 12:22 Dose: 80 mls/hr Documented By: Admin: 04/27/22 06:06 Dose: 80 mls/hr Documented By: Infusion: 04/27/22 02:02 Dose: 80 mls/hr Documented By: Infusion: 04/26/22 20:16 Dose: 80 mls/hr Documented By: Infusion: 04/26/22 16:13 Dose: 0 mls/hr Documented By: Admin: 04/26/22 09:29 Dose: 80 mls/hr Documented By: Infusion: 04/26/22 08:57 Dose: 80 mls/hr Documented By: Admin: 04/25/22 20:27 Dose: 80 mls/hr Documented By: AMZaid Infusion: 04/25/22 20:27 Dose: 80 mls/hr Documented By: Admin: 04/25/22 09:34 Dose: 80 mls/hr Documented By: CG Loperamide HCl (Loperamide Hcl 2 Mg Cap) 2 mg PO Q6H PRN PRN Reason: diarrhea Stop: 05/25/22 10:20 Last Admin: 04/26/22 02:36 Dose: 2 mg Documented By: Admin: 04/25/22 15:38 Dose: 2 mg Documented By: Admin: 04/25/22 12:10 Dose: 2 mg Documented By: CONRADO Mirtazapine (Mirtazapine Tab 15 Mg Tab) 15 mg PO DAVID Stop: 05/25/22 20:59 Last Admin: 04/27/22 20:32 Dose: 15 mg Documented By: Admin: 04/26/22 20:19 Dose: 15 mg Documented By: Admin: 04/25/22 20:26 Dose: 15 mg Documented By: USAMA Umeclidinium/Vilanterol (Umeclidinium/Vilanterol 62.5/25mcg 7 Puffs/Inhaler) 1 puffs INH QAM [facility]ID Stop: 05/24/22 08:59 Last Admin: 04/28/22 09:40 Dose: 1 puffs Documented By: Admin: 04/27/22 08:16 Dose: 1 puffs Documented By: Admin: 04/26/22 09:32 Dose: 1 puffs Documented By: Admin: 04/25/22 09:35 Dose: 1 puffs Documented By: Admin: 04/24/22 08:11 Dose: 1 puffs Documented By: ENS Discontinued Medications Dronabinol (Dronabinol 2.5 Mg Cap) 2.5 mg PO ONE ONE Stop: 04/28/22 11:46 Last Admin: 04/28/22 12:02 Dose: 2.5 mg Documented By: RL Fluconazole (Fluconazole 100 Mg Tab) 100 mg PO DAILY@1500 DAVID Stop: 04/26/22 15:01 Last Admin: 04/26/22 16:38 Dose: 100 mg Documented By: Admin: 04/25/22 15:38 Dose: 100 mg Documented By: Admin: 04/24/22 14:20 Dose: 100 mg Documented By: Sodium Chloride (Nss 1000ml) 1,000 mls @ 999 mls/hr IV .Q1H1M DAVID Stop: 04/23/22 11:15 Last Infusion: 04/23/22 12:01 Dose: 0 mls/hr Documented By: Admin: 04/23/22 10:59 Dose: 999 mls/hr Documented By: ARCHANA Acetaminophen (Ofirmev) 1,000 mg in 100 mls @ 400 mls/hr IV NOW STA Stop: 04/23/22 12:33 Last Infusion: 04/23/22 12:54 Dose: 0 mls/hr Documented By: Admin: 04/23/22 12:33 Dose: 400 mls/hr Documented By: ARCHANA Potassium Chloride (K Gregg / Wtr) 10 meq in 100 mls @ 100 mls/hr IV Q1H DAVID; Protocol Stop: 04/23/22 16:29 Last Infusion: 04/24/22 07:23 Dose: 0 mls/hr Documented By: Infusion: 04/23/22 15:50 Dose: 10 mls/hr Documented By: Admin: 04/23/22 15:41 Dose: 100 mls/hr Documented By: ARCHANA Potassium Chloride 40 meq/ (Sodium Chloride) 1,020 mls @ 125 mls/hr IV .Q8H10M DAVID Stop: 04/24/22 02:39 Last Infusion: 04/24/22 03:26 Dose: 0 mls/hr Documented By: Admin: 04/23/22 19:47 Dose: 125 mls/hr Documented By: USAMA Lactated Ringer's (Lr) 1,000 mls @ 80 mls/hr IV .[id number] [facility] Stop: 05/24/22 13:29 Last Infusion: 04/25/22 09:34 Dose: 0 mls/hr Documented By: Admin: 04/24/22 23:08 Dose: 80 mls/hr Documented By: AMZaid Infusion: 04/24/22 23:08 Dose: 80 mls/hr Documented By: Admin: 04/24/22 14:19 Dose: 80 mls/hr Documented By: Lactated Ringer's (Lr) 250 mls @ 999 mls/hr IV .Q16M ONE Stop: 04/24/22 16:07 Last Infusion: 04/24/22 16:39 Dose: 0 mls/hr Documented By: Admin: 04/24/22 16:18 Dose: 999 mls/hr Documented By: Magnesium Sulfate/Dextrose (Magnesium Sulfate / D5w) 1 gm in 100 mls @ 50 mls/hr IV ONE ONE Stop: 04/25/22 10:50 Last Infusion: 04/25/22 12:52 Dose: 0 mls/hr Documented By: Admin: 04/25/22 09:34 Dose: 50 mls/hr Documented By: CG Potassium Phosphate 21 mmol/ (Sodium Chloride) 507 mls @ 88 mls/hr IV ONE ONE Stop: 04/26/22 18:00 Last Infusion: 04/26/22 21:58 Dose: 0 mls/hr Documented By: Infusion: 04/26/22 19:05 Dose: 88 mls/hr Documented By: Infusion: 04/26/22 16:13 Dose: 0 mls/hr Documented By: Admin: 04/26/22 12:38 Dose: 88 mls/hr Documented By: CG Magnesium Sulfate/Dextrose (Magnesium Sulfate / D5w) 1 gm in 100 mls @ 50 mls/hr IV Q2H [facility]ID Stop: 04/27/22 11:59 Last Infusion: 04/27/22 14:29 Dose: 0 mls/hr Documented By: Admin: 04/27/22 12:22 Dose: 50 mls/hr Documented By: Infusion: 04/27/22 11:05 Dose: 50 mls/hr Documented By: Admin: 04/27/22 09:05 Dose: 50 mls/hr Documented By: RL Methylprednisolone 20 mg/ (Syringe) 0.32 mls @ 1.5 mls/min IV ONE ONE Stop: 04/27/22 18:01 Last Admin: 07/18/22 18:28 Dose: 1.5 mls/min Documented By: RL Ioversol (Optiray 320 100ml) 94 ml IV ONCE ONE Stop: 04/23/22 13:24 Last Admin: 04/23/22 13:23 Dose: 94 ml Documented By: KEIKO Mirtazapine (Mirtazapine Tab 15 Mg Tab) 15 mg PO QAM DAVID Stop: 05/24/22 08:59 Last Admin: 04/24/22 08:13 Dose: 15 mg Documented By: Polyethylene Glycol (Polyethylene (Miralax) 17 Gm Pack) 17 gm PO DAILY DAVID Stop: 05/23/22 18:21 Last Admin: 04/24/22 08:12 Dose: 17 gm Documented By: Admin: 04/23/22 20:06 Dose: 17 gm Documented By: USAMA Potassium Chloride (Potassium Chloride Crtab 20 Meq Tabcr) 20 meq PO NOW STA Stop: 04/27/22 07:31 Last Admin: 04/27/22 09:04 Dose: 20 meq Documented By: RL Sodium Biphosphate/Sodium Phosphate (Sod Phosphate/Sod Biphosphate Enema 132 Ml Btl) 132 ml KS Q12H DAVID Stop: 04/24/22 19:01 Last Admin: 04/24/22 07:31 Dose: 132 ml Documented By: Admin: 04/23/22 20:06 Dose: 132 ml Documented By: USAMA Imaging Data Radiologist's Impression: Chest X-Ray 04/23/22 10:16 SINGLE VIEW CHEST CLINICAL HISTORY: Generalized weakness. FINDINGS: An AP, portable, upright chest radiograph is compared to study dated 02/12/2022 and correlated with chest CT dated 04/22/2022. The cardiomediastinal silhouette is unremarkable. Emphysema and chronic interstitial thickening is similar to previous. A large left perihilar mass lesion is again noted. Minimal airspace opacities are seen in the left lower lobe. No large pleural effusion is identified. The right lung appears clear noting basilar scarring/atelectasis. No pneumothorax is seen. The skeletal structures are osteopenic. A pathological fracture of the distal right clavicle was better seen on yesterday's CT scan. Osteolytic lesion is suggested in the left proximal humerus. IMPRESSION: 1. Emphysema and a large left perihilar mass lesion are unchanged. 2. There are minimal airspace opacities in the left lower lobe. Correlate clinically for evidence of a mild postobstructive pneumonitis. 3. The right lung appears clear. 4. A pathological fracture and lytic lesion of the distal right clavicle was better seen on yesterday's CT scan. 5. An osteolytic lesion is suggested in the left proximal humerus. ACT 112: Negative or not required by law. Electronically signed by: Paul Clayton M.D. 04/23/2022 11:06 AM Abdomen/Pelvis CT 04/23/22 12:19 CT abd pelvis IV con only CLINICAL HISTORY: lung cancer, lower abd pain, anemia TECHNIQUE: Helical axial images of the abdomen and pelvis were obtained and displayed. Automated dose lowering techniques and/or adjustment according to patient size were utilized for this exam. This exam was performed with intravenous contrast. CT DOSE: 507.65 mGycm COMPARISON: Comparison is made to CT chest 04/22/2022 and PET/CT 02/25/2022 FINDINGS: Lower chest: Overall similar appearance of bibasilar atelectasis and left lower lung airspace opacity compared to prior CT chest 04/22/2022. Liver: Unremarkable. No focal lesions are seen. Gallbladder and biliary tree: The gallbladder is distended but unremarkable. No intra- or extrahepatic biliary ductal dilation. Pancreas: Unremarkable, no focal lesions. Spleen: Unremarkable. Adrenals: Unremarkable. Kidneys and ureters: There is a large right renal cyst. Additional smaller hypodensities are seen in the bilateral kidneys. Bladder: Tucker catheter is seen. Reproductive organs: Unremarkable. Bowel: A large stool burden is seen with possibly inspissated stool ball in the rectum. Mild rectal wall thickening is seen. Diverticulosis is seen without evidence of diverticulitis. Lymph nodes Retroperitoneal: Unremarkable. Mesenteric: Unremarkable. Pelvic: Unremarkable. Peritoneum: Normal. Vessels: Atherosclerotic calcifications are seen. Abdominal wall: Unremarkable. Bones: A right total hip arthroplasty is seen. Degenerative changes are seen in the spine at the level disc osteophyte disease. No definite bony lesions are seen. IMPRESSION: 1. There is a large stool burden with possibly inspissated stool ball in the rectum. There is mild rectal wall thickening and stercoral colitis cannot be e ntirely excluded. 2. Similar appearance of bibasilar atelectasis and left lower lung airspace opacity compared to recent chest CT. 3. Bladder is decompressed by Tucker catheter. 4. Additional findings as above. ACT 112: Negative or not required by law. Electronically signed by: Sharad Johns M.D. 04/23/2022 1:50 PM Blood Pressure Blood Pressure Findings: Low blood pressure Blood Pressure Disposition: further management by hospitalist Discharge Plan Visit Data Chief Complaint: Unable to Void Stated Complaint: TROUBLE URINATING ED Provider: Teresa Spears Discharge Problem: Metastatic primary lung cancer, Fecal impaction, Acute urinary retention, Acute dehydration Patient Disposition: Admitted As Inpatient Discharge Instructions Interventions: ED Discharge Assessment Last Done: 04/23/22 17:53
[2022-04-25] MEDS: AMPICILLIN/SULBACTAM SOD 3,000 MG in 0.9 % SODIUM CHLORIDE 100 ML IV SCH ×4 (00:44→18:06)
[2022-04-25 06:37] LABS: Basophils # (auto) 0.04 K/uL (0-0.2); Basophils % (auto) 0.7 %; Eosinophils # (auto) 0.04 K/uL (0-0.50); Eosinophils % (auto) 0.7 %; Hematocrit (blood only) 28.2 % (40.1-51.0); Hemoglobin 9.3 g/dl (14.0-18.0); Immature Granulocytes # (auto) 0.12 K/uL (0.00-0.02); Lymphocytes # (auto) 1.32 K/uL (1.2-3.4); Lymphocytes % (auto) 22.2 %; Mean Corpuscular Hemoglobin 28.6 pg (25.0-34.0); Mean Corpuscular Volume 86.8 fL (80.0-100.0); Mean Platelet Volume 11.6 fL (9.4-12.4); Monocytes # (auto) 0.36 K/uL (0.24-0.82); Monocytes % (auto) 6.1 %; Neutrophils # (auto) 4.06 K/uL (1.4-6.5); Neutrophils % (auto) 68.3 %; Platelet Count 73 K/uL (130-400); RDW Coefficient of Variation 19.8 % (11.5-14.5); RDW Standard Deviation 52.4 fL (36.4-46.3); Red Blood Count 3.25 M/uL (4.63-6.08); White Blood Count 5.94 K/ul (4.8-10.8)
[2022-04-25 07:12] LABS: Albumin Globulin Ratio 0.6 (0.9-2); BUN Creatinine Ratio 24.7 (10-20); Bilirubin,Total 0.6 mg/dl (0.2-1.0); Calcium 8.5 mg/dl (8.5-10.1); Creatinine Clr Calc Pharmacy 63.7 ml/min; Est GFR (African American) 99.4 ml/min; Est GFR (Non-African American) 85.7 ml/min; Globulin 3.1 gm/dl (2.5-4.0); Magnesium 1.7 mg/dl (1.7-2.4); Phosphorus 2.3 mg/dl (2.5-4.9); Potassium 3.5 mmol/L (3.5-5.1); Total Protein 5.1 gm/dl (6.0-8.3)
[2022-04-25] MEDS ORDERED: MAGNESIUM SULFATE / D5W 1 GM/100 ML BAG IV ONE (08:51)
[2022-04-25] MEDS: D5W AND LACTATED RINGERS 1,000 ML IV SCH ×2 (09:34→20:27)
[2022-04-25] MEDS: UMECLIDINIUM/VILANTEROL 62.5/25MCG 7 PUFFS/INHALER INH SCH (09:35)
[2022-04-25] MEDS: ENOXAPARIN INJ 40 MG/0.4 ML SYR SQ SCH (09:36)
[2022-04-25] MEDS: LOPERAMIDE HCL 2 MG CAP PO PRN ×2 (12:10→15:38)
[2022-04-25] MEDS: FLUCONAZOLE 100 MG TAB PO SCH (15:38)
--- NOTE | 2022-04-25 16:38 | Hospitalist Progress Note ---
Date of Service April 25, 2022 Assessment & Plan (1) Squamous cell lung cancer: Plan: Diagnosed in 02/2022 in the left lung.. With mets to the liver, brain, lymph nodes, and now with recent evidence of mets to the bones on CT chest 04/22. Now s/p brain radiation & one dose of carboplatin/paclitaxel/pembrolizumab on 04/06/2022. Since starting chemotherapy, has had significant failure to thrive, weight loss, low appetite, and now here with anemia and thrombocytopenia secondary to antineoplastic therapy -Supportive care, IV fluids, nutritional support with boost added, and treatment for postobstructive pneumonia, as well as transfusional support as below given Notified his oncologist that he is in house - Family realistic about his case. Discussed the results of his chest CT to them from 04/22 and that it shows increasing cancer burden in the bones. Daughter a sks for CM consult for extra home help. Consider palliative consultation if continues to deteriorate -Most likely, his upcoming chemotherapy next week will be delayed-we will discuss with his oncologist -Continue mirtazapine for appetite stimulation and he also recently got his medical card in the mail but has not started this yet -family trying to encourage him to eat more so he can be discharged; he is anxious to go home -having copious diarrhea now after receiving Fleets enemas on admission for fecal impaction -change IVFs to D5LR at 80mL/hr due to hypoglycemia (2) Pancytopenia due to antineoplastic chemotherapy: Plan: Hemoglobin down to 7.5 on arrival, only up to 7.8 after 1 unit PRBCs Transfused a second unit PRBCs on 04/24 and now hgb up to 9.3 Platelets now rising, orion was 66 No bleeding from anywhere Follow CBC in the morning -hold Lovenox if drops below 50 Monitor for bleeding (3) Acute renal failure: Plan: Creatinine elevated on arrival at 1.45 secondary to dehydration from poor p.o. intake Now resolved with IV fluids Follow BMP, UOP (4) Paraphimosis: Plan: noted on 04/25 I could not reduce the foreskin, having pain with doing so Have asked Urology to see him-greatly appreciated (5) Hypotension: Plan: Blood pressures now slightly improved after 2 units PRBCs and IVFs Secondary to hypovolemia and less likely sepsis cortisol to r/o adrenal insufficiency ordered and is normal Continue IV fluid hydration, PRBC transfusion for volume support as needed (6) Pneumonia: Plan: Continue Unasyn for postobstructive pneumonia Transition Augmentin when taking p.o. better and would finish out 7 day course- last day of Tx will be 04/29 (7) Fecal impaction: Plan: CT a/p on 04/23 notes "stool burden with possibly inspissated stool ball in the rectum." notes no BM in 2 days prior to admission -Now with multiple bowel movements after fleets enema x 2 and now with copious diarrhea Tucker catheter placed for presumed urinary retention-this may resolve now that his fecal impaction is resolved -add on Imodium prn for diarrhea may have to consider rectal tube if continues as he has sacral decub ulcers (8) Pathologic fracture: Plan: Right distal clavicle also with osteolytic bone lesion left proximal humerus seen on xray and osteolytic lesions seen on chest CT 04/22 -caution with handling him for care discussed with RN due to being at risk for fractures (9) Severe protein-calorie malnutrition: Plan: add Boost BMI 17.6 2/2 metastatic CA and chemotherapy on mirtazapine for appetite stimulant and also has marijuana card but hasn't started this yet (10) COVID: Plan: old infection from 6 weeks ago when multiple family members also had COVID. Because he tested positive on a home test at that time, Infection Control policy is to keep him on isolation precautions here no treatment needed as I do not believe he has active COVID (11) Sacral decubitus ulcer: Plan: Wound care consulted Offload pressure (12) Generalized weakness: Plan: Secondary to chemotherapy effect, anemia, dehydration Treating all of these things as above PT/OT consults placed (13) DVT prophylaxis: Plan: Lovenox 40 mg SQ daily & SCDs -> Low concern for acute bleeding and patient is extremely high risk given age and active cancer. - Monitor hgb & platelets Extensive code discussion with patient and family - Patient willing to have 1 round of CPR/defibrillation (~5 minutes). No intubation or ventilation. Family willing to attempt central line and pressors for 1-2 days if needed. Disposition-continued stay Admission and Anticipated Discharge Date Admission Date: April 23, 2022 Subjective Pt anxious to go home. Having copious liquid stools today as per nursing. Is eating very little.Denies CP, SOB, abd pain. Tele with NSR, PACs, 70-80s Review of Systems Review of Systems: All systems reviewed & are unremarkable except as noted in HPI & below Physical Exam Constitutional: + ill appearing and + cachectic; no acute distress Eyes: + anicteric sclerae ENMT: Nose: no external nose abnormality Neck: trachea midline, no thyromegaly Respiratory: normal respiratory effort; no labored breathing Auscultation: lungs clear to auscultation bilaterally Cardiovascular: RRR, no murmur, no edema Gastrointestinal (Abdomen): normal bowel sounds, soft, nontender, no hepatosplenomegaly Musculoskeletal: Extremities: extremities normal to inspection; no cyanosis and no clubbing Skin: no rashes, warm and dry Neurologic: moves all extremities and awake; no focal motor deficits Psychiatric: A+Ox3, euthymic affect Orientation: cooperative Genitourinary: + paraphimosis (could not reduce and was painful at attempts) Results & Data Results & Data ([facility]) Vital Signs (Past 12 Hours) Vital Signs Temp Pulse Pulse Resp BP Pulse Ox O2 Del Method 04/25/22 15:29 36.6 C 86 18 99/64 L 94 Room Air 04/25/22 06:03 77 04/25/22 08:00 Room Air Laboratory Results 04/25/22 04/25/22 Range/Units 05:54 05:54 WBC 5.94 (4.8-10.8) K/ul RBC 3.25 L (4.63-6.08) M/uL Hgb 9.3 L (14.0-18.0) g/dl Hct 28.2 L (40.1-51.0) % MCV 86.8 (80.0-100.0) fL MCH 28.6 (25.0-34.0) pg MCHC 33.0 (32.0-36.0) g/dL RDW Std Deviation 52.4 H (36.4-46.3) fL RDW Coeff of Ivett 19.8 H (11.5-14.5) % Plt Count 73 L (130-400) K/uL MPV 11.6 (9.4-12.4) fL Immature Gran % (Auto) 2.0 % Neut % (Auto) 68.3 % Lymph % (Auto) 22.2 % Barton % (Auto) 6.1 % Eos % (Auto) 0.7 % Baso % (Auto) 0.7 % Neut # (Auto) 4.06 (1.4-6.5) K/uL Lymph # (Auto) 1.32 (1.2-3.4) K/uL Barton # (Auto) 0.36 (0.24-0.82) K/uL Eos # (Auto) 0.04 (0-0.50) K/uL Baso # (Auto) 0.04 (0-0.2) K/uL Immature Gran # (Auto) 0.12 H (0.00-0.02) K/uL Sodium 148 H (136-145) mmol/L Potassium 3.5 (3.5-5.1) mmol/L Chloride 115 H (98-107) mmol/L Carbon Dioxide 27 (21-32) mmol/L Anion Gap 6 (3-11) BUN 20 (6-23) mg/dl Creatinine 0.81 (0.6-1.4) mg/dl Est Cr Clr Drug Dosing 63.7 ml/min Est GFR ( Amer) 99.4 ml/min Est GFR (Non-Af Amer) 85.7 ml/min BUN/Creatinine Ratio 24.7 H (10-20) Glucose 68 L (70-99(Fasting)) mg/dl Calcium 8.5 (8.5-10.1) mg/dl Phosphorus 2.3 L (2.5-4.9) mg/dl Magnesium 1.7 (1.7-2.4) mg/dl Total Bilirubin 0.6 (0.2-1.0) mg/dl AST 15 (13-39) U/L ALT 9 (7-52) U/L Alkaline Phosphatase 80 (34-104) U/L Total Protein 5.1 L (6.0-8.3) gm/dl Albumin 2.0 L (3.4-5.0) gm/dl Globulin 3.1 (2.5-4.0) gm/dl Albumin/Globulin Ratio 0.6 L (0.9-2) PG Care Time/CCT Total # of Minutes Spent Total Time Spent with Patient: Total time spent is greater than 50% in coordination of care (as documented) at patient's floor/unit and/or counseling patient: Coding Level of Care Code 09971 Subseq Hosp Care Lvl 3 Diagnoses Squamous cell lung cancer C34.90 Pancytopenia due to antineoplastic chemotherapy D61.810; T45.1X5A Acute renal failure N17.9 Paraphimosis N47.2 Hypotension I95.9 Pneumonia J18.9 Fecal impaction K56.41 Pathologic fracture M84.40XA Severe protein-calorie malnutrition E43 COVID U07.1 Sacral decubitus ulcer L89.159 Generalized weakness R53.1 DVT prophylaxis Z29.9
--- NOTE | 2022-04-25 17:20 | Urology Consultation ---
Date of Consultation April 25, 2022 Assessment & Plan (1) Paraphimosis: Foreskin was reduced successfully at the bedside. Please make sure the foreskin is reduced over the glans after every episode of catheter care. I instructed the patient to be aware of this as well. If he has any skin irritation, could a pply some bacitracin, although I suspect that with the foreskin in place everything will heal up without any issues. Tucker catheter per primary team. Urology will sign off for now, he can follow-up with us on an as-needed basis. Please call with any questions or concerns. History of Present Illness Reason for Consultation: Paraphimosis Attending Physician: Kristin Chen MD History of Present Illness This is a 76-year-old uncircumcised male with metastatic lung cancer who presented to the emergency department on 04/23/2022. At that time he was having urinary retention, thought to be due to severe constipation. A Tucker catheter was placed and he was admitted for management of his other medical issues. On 04/25/2022, he was noted to have some painful edema of the glans and distal penis. On exam he was found to have a paraphimosis which cannot be reduced by nursing staff or his primary team. Urology was consulted for further evaluation. At the bedside he was resting comfortably, however noted that the tip of the penis was still sore. He has never had this issue before. Paraphimosis was reduced in the following fashion: I discussed the plan with the patient and he was in agreement. The penis was then wrapped with 1 inch Coban, specifically putting pressure on the glans and edematous portion. Manual pressure was then used to help squeeze the edema out from the distal penis. After approximately 5 minutes, the Coban was removed and the foreskin was reduced over the glans. Patient tolerated the procedure well with no immediate complications. Allergies Allergy/AdvReac Type Severity Reaction Status Date / Time Penicillins Allergy Unknown RXN Verified 04/03/22 13:12 UNKNOWN PER PT Home Medications Medication Instructions Recorded Confirmed Type multivitamin 1 tab PO QAM 11/26/21 04/23/22 History omega 5-hjj-rvl-fish oil 1,000 mg 1 cap PO QAM 11/26/21 04/23/22 History (120 mg-180 mg) capsule (Fish Oil) Flutter Valve #1 ea 12/03/21 03/11/22 Rx albuterol sulfate 90 mcg/actuation 2 puff inhalation Q6H PRN 12/03/21 04/23/22 Rx aerosol inhaler Shortness Of Breath Or Wheezing #18 grams mirtazapine 15 mg tablet (Remeron) 15 mg PO QAM 04/03/22 04/23/22 History fluconazole 100 mg tablet 100 mg PO DAILY@1500 04/23/22 04/23/22 History (Diflucan) pembrolizumab 25 mg/mL intravenous 0 mg IV UD 04/23/22 04/23/22 History solution (Keytruda) umeclidinium 62.5 mcg-vilanterol 1 inh inhalation QAM 04/23/22 04/23/22 History 25 mcg/actuation powdr for inhalation (Anoro Ellipta) Patient History Medical History (Updated 04/25/22 @ 16:49 by Kristin Chen MD) Abnormal chest CT Cavitary pneumonia Chronic bronchitis COPD (chronic obstructive pulmonary disease) Elevated cholesterol Ex-smoker Exertional shortness of breath Lyme disease Pathologic fracture Pneumonia Severe protein-calorie malnutrition Surgical History History of right hip replacement S/P bronchoscopy S/P left rotator cuff repair Status post right knee replacement Family History Brother Cancer Several brothers with cancer dx Father Cancer Mother Myocardial infarction Social History Smoking Status: Current some day smoker Hx Alcohol Use: Yes Hx Substance Use: No Preferred Language: Chinese Communication Ability: Effective Visual Impairment: No Limitations Hearing Ability: Hard of Hearing Ward Attendant Required: No Beliefs That Will Affect Care: Faith marital status: Current Living Situation: Spouse current occupational status: retired Feels Safe at Home: No Is there a partner from a previous relationship who is making you feel unsafe now?: No caffeine: Yes Physical Activity Frequency: Does not Exercise Assistive Devices: Raised Toilet Seat, Walker and Wheelchair Review of Systems Review of Systems: 14 point review of systems negative except for otherwise indicated. Physical Exam Constitutional: + frail appearing; no acute distress Eyes: + anicteric sclerae; pupils not irregular Respiratory: normal respiratory effort; no respiratory distress, does not use accessory muscles and no cough Cardiovascular: well perfused Gastrointestinal (Abdomen): Inspection/Auscultation: abdomen normal to inspection; abdomen not distended Musculoskeletal: Extremities: extremities normal to inspection Skin: normal turgor; no rashes and no lesions Neurologic: moves all extremities and awake Psychiatric: Orientation: alert and oriented x 3 Genitourinary: Uncircumcised penis with Tucker catheter in place, draining clear yellow urine. Initial edema of the glans penis, addressed with pressure from Coban. Foreskin was able to be reduced over the tip of the penis. Results & Data ([facility]) Vital Signs (Past 12 Hours) Vital Signs Temp Pulse Pulse Resp BP Pulse Ox O2 Del Method 04/25/22 15:29 36.6 C 86 18 99/64 L 94 Room Air 04/25/22 06:03 77 04/25/22 08:00 Room Air PG Care Time/CCT Total # of Minutes Spent Total Time Spent with Patient: Total time spent is greater than 50% in coordination of care (as documented) at patient's floor/unit and/or counseling patient: Coding Level of Care Code 29542 Initial Inpt Care Lvl 2 Diagnoses Paraphimosis N47.2
[2022-04-25] MEDS: MIRTAZAPINE TAB 15 MG TAB PO SCH (20:26)
[2022-04-26] MEDS: AMPICILLIN/SULBACTAM SOD 3,000 MG in 0.9 % SODIUM CHLORIDE 100 ML IV SCH ×4 (02:35→20:19)
[2022-04-26] MEDS: LOPERAMIDE HCL 2 MG CAP PO PRN (02:36)
[2022-04-26 07:55] LABS: Basophils # (auto) 0.02 K/uL (0-0.2); Basophils % (auto) 0.4 %; Eosinophils # (auto) 0.03 K/uL (0-0.50); Eosinophils % (auto) 0.6 %; Hematocrit (blood only) 24.6 % (40.1-51.0); Hemoglobin 7.9 g/dl (14.0-18.0); Immature Granulocytes # (auto) 0.12 K/uL (0.00-0.02); Immature Granulocytes % (auto) 2.6 %; Lymphocytes # (auto) 1.33 K/uL (1.2-3.4); Lymphocytes % (auto) 28.4 %; Mean Corpuscular Hemoglobin 28.1 pg (25.0-34.0); Mean Corpuscular Hgb Conc 32.1 g/dL (32.0-36.0); Mean Corpuscular Volume 87.5 fL (80.0-100.0); Mean Platelet Volume 11.7 fL (9.4-12.4); Monocytes # (auto) 0.39 K/uL (0.24-0.82); Monocytes % (auto) 8.3 %; Neutrophils % (auto) 59.7 %; Platelet Count 76 K/uL (130-400); RDW Coefficient of Variation 19.9 % (11.5-14.5); RDW Standard Deviation 53.1 fL (36.4-46.3); Red Blood Count 2.81 M/uL (4.63-6.08); White Blood Count 4.69 K/ul (4.8-10.8)
[2022-04-26 08:23] LABS: Albumin Globulin Ratio 0.6 (0.9-2); Albumin Level 1.7 gm/dl (3.4-5.0); BUN Creatinine Ratio 15.8 (10-20); Bilirubin,Total 0.4 mg/dl (0.2-1.0); Calcium 8.1 mg/dl (8.5-10.1); Creatinine Clr Calc Pharmacy 67.9 ml/min; Globulin 2.8 gm/dl (2.5-4.0); Magnesium 1.7 mg/dl (1.7-2.4); Phosphorus 2.2 mg/dl (2.5-4.9); Potassium 3.1 mmol/L (3.5-5.1); Total Protein 4.5 gm/dl (6.0-8.3)
[2022-04-26 08:25] LABS: Anisocytosis Present
[2022-04-26] MEDS: D5W AND LACTATED RINGERS 1,000 ML IV SCH (09:29)
[2022-04-26] MEDS: UMECLIDINIUM/VILANTEROL 62.5/25MCG 7 PUFFS/INHALER INH SCH (09:32)
[2022-04-26] MEDS: ENOXAPARIN INJ 40 MG/0.4 ML SYR SQ SCH (09:32)
[2022-04-26] MEDS ORDERED: POTASSIUM PHOS 3 MMOL/1 ML INFUSION IV STA (11:47)
[2022-04-26] MEDS ORDERED: SODIUM CHLORIDE 0.9% 250 ML IV PRN (11:48)
[2022-04-26] MEDS ORDERED: POTASSIUM PHOSPHATE 21 MMOL in SODIUM CHLORIDE 0.9% 250 ML IV ONE (12:00)
[2022-04-26] MEDS ORDERED: POTASSIUM PHOSPHATE 21 MMOL in SODIUM CHLORIDE 0.9% 500 ML IV ONE (12:15)
--- NOTE | 2022-04-26 16:18 | Hospitalist Progress Note ---
Date of Service April 26, 2022 Assessment & Plan (1) Squamous cell lung cancer: Plan: Diagnosed in 02/2022 in the left lung.. With mets to the liver, brain, lymph nodes, and now with recent evidence of mets to the bones on CT chest 04/22. Now s/p brain radiation & one dose of carboplatin/paclitaxel/pembrolizumab on 04/06/2022. Since starting chemotherapy, has had significant failure to thrive, weight loss, low appetite, and now here with anemia and thrombocytopenia secondary to antineoplastic therapy -continue supportive care, IV fluids, nutritional support with boost added, and treatment for postobstructive pneumonia, as well as transfusional support as below given -Notified his oncologist that he is in house Family realistic about his case. Discussed the results of his chest CT to them from 04/22 and that it shows increasing cancer burden in the bones. Daughter asks for CM consult for extra home help. Consider palliative consultation if continues to deteriorate Still barely eating anything -Most likely, his upcoming chemotherapy next week will be delayed-we will discuss with his oncologist -Continue mirtazapine for appetite stimulation and he also recently got his medical marijuana card in the mail but has not started this yet -family trying to encourage him to eat more so he can be discharged; he is anxious to go home -was having copious diarrhea now after receiving Fleets enemas on admission for fecal impaction--> now stopped after imodium -continue IVFs w/ D5LR at 80mL/hr due to previous hypoglycemia (2) Pancytopenia due to antineoplastic chemotherapy: Plan: Hemoglobin down to 7.5 on arrival, only up to 7.8 after 1 unit PRBCs Transfused a second unit PRBCs on 04/24 and then hgb up to 9.3 Hgb back down to 7.9 on 04/26--> give another unit of PRBCs Platelets continue to rise to 76, orion was 66 No bleeding from anywhere WBC count up to 4 -Follow CBC in the morning -hold Lovenox if drops below 50 -Monitor for bleeding (3) Electrolyte abnormality: Plan: hypokalemia and hypophosphatemia 2/2 poor po intaake replace with IV KPhos follow BMP, mag, phos in AM (4) Acute renal failure: Plan: Creatinine elevated on arrival at 1.45 secondary to dehydration from poor p.o. intake Now resolved with IV fluids Follow BMP, UOP Tucker in place due to urinary retention-will need a TOV prior to discharge (5) Paraphimosis: Plan: noted on 04/25 I could not reduce the foreskin, having pain with doing so Have asked Urology to see him-greatly appreciated--> they reduced paraphimosis on 04/25 Remains reduced and appears normal on exam now (6) Hypotension: Plan: Blood pressures now slightly improved after 2 units PRBCs and IVFs Secondary to hypovolemia and less likely sepsis cortisol to r/o adrenal insufficiency ordered and is normal Continue IV fluid hydration, PRBC transfusion for volume support as needed (7) Pneumonia: Plan: Continue Unasyn for postobstructive pneumonia Transition Augmentin when taking p.o. better and would finish out 7 day course- last day of Tx will be 04/29 (8) Fecal impaction: Plan: CT a/p on 04/23 notes "stool burden with possibly inspissated stool ball in the rectum." notes no BM in 2 days prior to admission -Now with multiple bowel movements after fleets enema x 2 and now with copious diarrhea Tucker catheter placed for presumed urinary retention-this may resolve now that his fecal impaction is resolved -added on Imodium prn for diarrhea and now improving (9) Pathologic fracture: Plan: Right distal clavicle also with osteolytic bone lesion left proximal humerus seen on xray and osteolytic lesions seen on chest CT 04/22 -caution with handling him for care discussed with RN due to being at risk for fractures (10) Severe protein-calorie malnutrition: Plan: added Boost BMI 17.2 2/2 metastatic CA and chemotherapy on mirtazapine for appetite stimulant and also has marijuana card but hasn't started this yet (11) COVID: Plan: old infection from 6 weeks ago when multiple family members also had COVID. Because he tested positive on a home test at that time, Infection Control policy is to keep him on isolation precautions here no treatment needed as I do not believe he has active COVID (12) Sacral decubitus ulcer: Plan: Wound care consulted Offload pressure (13) Generalized weakness: Plan: Secondary to chemotherapy effect, anemia, dehydration Treating all of these things as above PT/OT consults placed (14) DVT prophylaxis: Plan: Lovenox 40 mg SQ daily & SCDs -> Low concern for acute bleeding and patient is extremely high risk given age and active cancer. - Monitor hgb & platelets Extensive code discussion with patient and family - Patient willing to have 1 round of CPR/defibrillation (~5 minutes). No intubation or ventilation. Family willing to attempt central line and pressors for 1-2 days if needed. Disposition-continued stay, needs PT/OT evals, needs to improve po intake, ensure no more transfusions needed, and maintain hydration status on own prior to discharge. Admission and Anticipated Discharge Date Admission Date: April 23, 2022 Subjective Pt has not had any more diarrhea today. Still very poor appetite, only ate a small amount of mashed potatoes today as per RN. He reports he doesn't feel like eating, no nausea, no abd pain. He reports mild SOB but is lying flat in bed and appear comfortable on RA. Tele with NSR, rates 60-70s Review of Systems Review of Systems: 14 point review of systems negative except for otherwise indicated. Physical Exam Constitutional: + ill appearing and + cachectic; no acute distress Eyes: + anicteric sclerae ENMT: Nose: no external nose abnormality Neck: trachea midline, no thyromegaly Respiratory: normal respiratory effort; no labored breathing Auscultation: lungs clear to auscultation bilaterally and + crackles (Bilateral lower and middle lung quintero); no wheezes Cardiovascular: RRR, no murmur, no edema Gastrointestinal (Abdomen): normal bowel sounds, soft, nontender, no hepatosplenomegaly Musculoskeletal: Extremities: extremities normal to inspection; no cyanosis and no clubbing Skin: no rashes, warm and dry Neurologic: moves all extremities and awake; no focal motor deficits Psychiatric: A+Ox3, euthymic affect Orientation: alert, oriented to person and cooperative Genitourinary: no paraphimosis (now resolved) Results & Data Results & Data ([facility]) Vital Signs (Past 12 Hours) Vital Signs Temp Pulse Pulse Resp BP BP Pulse Ox 04/26/22 15:49 36.5 C 74 14 104/64 95 04/26/22 14:18 75 04/26/22 06:13 77 04/26/22 08:00 04/26/22 12:12 36.3 C L 77 17 101/64 99 04/26/22 08:05 36.6 C 74 18 93/49 L 93 O2 Del Method 04/26/22 15:49 04/26/22 14:18 04/26/22 06:13 04/26/22 08:00 Room Air 04/26/22 12:12 Room Air 04/26/22 08:05 Room Air Laboratory Results 04/26/22 04/26/22 04/26/22 Range/Units 11:52 07:30 07:30 WBC 4.69 L (4.8-10.8) K/ul RBC 2.81 L (4.63-6.08) M/uL Hgb 7.9 L (14.0-18.0) g/dl Hct 24.6 L (40.1-51.0) % MCV 87.5 (80.0-100.0) fL MCH 28.1 (25.0-34.0) pg MCHC 32.1 (32.0-36.0) g/dL RDW Std Deviation 53.1 H (36.4-46.3) fL RDW Coeff of Ivett 19.9 H (11.5-14.5) % Plt Count 76 L (130-400) K/uL MPV 11.7 (9.4-12.4) fL Immature Gran % (Auto) 2.6 % Neut % (Auto) 59.7 % Lymph % (Auto) 28.4 % Grimes % (Auto) 8.3 % Eos % (Auto) 0.6 % Baso % (Auto) 0.4 % Neut # (Auto) 2.80 (1.4-6.5) K/uL Lymph # (Auto) 1.33 (1.2-3.4) K/uL Grimes # (Auto) 0.39 (0.24-0.82) K/uL Eos # (Auto) 0.03 (0-0.50) K/uL Baso # (Auto) 0.02 (0-0.2) K/uL Immature Gran # (Auto) 0.12 H (0.00-0.02) K/uL Anisocytosis Present Sodium 147 H (136-145) mmol/L Potassium 3.1 L (3.5-5.1) mmol/L Chloride 116 H (98-107) mmol/L Carbon Dioxide 27 (21-32) mmol/L Anion Gap 4 (3-11) BUN 12 (6-23) mg/dl Creatinine 0.76 (0.6-1.4) mg/dl Est Cr Clr Drug Dosing 67.9 ml/min Est GFR ( Amer) 102.0 ml/min Est GFR (Non-Af Amer) 88.0 ml/min BUN/Creatinine Ratio 15.8 (10-20) Glucose 202 H (70-99(Fasting)) mg/dl POC Glucose (70-99) mg/dl Calcium 8.1 L (8.5-10.1) mg/dl Phosphorus 2.2 L (2.5-4.9) mg/dl Magnesium 1.7 (1.7-2.4) mg/dl Total Bilirubin 0.4 (0.2-1.0) mg/dl AST 11 L (13-39) U/L ALT 8 (7-52) U/L Alkaline Phosphatase 72 (34-104) U/L Total Protein 4.5 L (6.0-8.3) gm/dl Albumin 1.7 L (3.4-5.0) gm/dl Globulin 2.8 (2.5-4.0) gm/dl Albumin/Globulin Ratio 0.6 L (0.9-2) Blood Type A Positive Antibody Screen NEGATIVE Crossmatch See Detail 04/25/22 Range/Units 17:21 WBC (4.8-10.8) K/ul RBC (4.63-6.08) M/uL Hgb (14.0-18.0) g/dl Hct (40.1-51.0) % MCV (80.0-100.0) fL MCH (25.0-34.0) pg MCHC (32.0-36.0) g/dL RDW Std Deviation (36.4-46.3) fL RDW Coeff of Ivett (11.5-14.5) % Plt Count (130-400) K/uL MPV (9.4-12.4) fL Immature Gran % (Auto) % Neut % (Auto) % Lymph % (Auto) % Grimes % (Auto) % Eos % (Auto) % Baso % (Auto) % Neut # (Auto) (1.4-6.5) K/uL Lymph # (Auto) (1.2-3.4) K/uL Grimes # (Auto) (0.24-0.82) K/uL Eos # (Auto) (0-0.50) K/uL Baso # (Auto) (0-0.2) K/uL Immature Gran # (Auto) (0.00-0.02) K/uL Anisocytosis Sodium (136-145) mmol/L Potassium (3.5-5.1) mmol/L Chloride (98-107) mmol/L Carbon Dioxide (21-32) mmol/L Anion Gap (3-11) BUN (6-23) mg/dl Creatinine (0.6-1.4) mg/dl Est Cr Clr Drug Dosing ml/min Est GFR ( Amer) ml/min Est GFR (Non-Af Amer) ml/min BUN/Creatinine Ratio (10-20) Glucose (70-99(Fasting)) mg/dl POC Glucose 149 H (70-99) mg/dl Calcium (8.5-10.1) mg/dl Phosphorus (2.5-4.9) mg/dl Magnesium (1.7-2.4) mg/dl Total Bilirubin (0.2-1.0) mg/dl AST (13-39) U/L ALT (7-52) U/L Alkaline Phosphatase (34-104) U/L Total Protein (6.0-8.3) gm/dl Albumin (3.4-5.0) gm/dl Globulin (2.5-4.0) gm/dl Albumin/Globulin Ratio (0.9-2) Blood Type Antibody Screen Crossmatch PG Care Time/CCT Total # of Minutes Spent Total Time Spent with Patient: Total time spent is greater than 50% in coordination of care (as documented) at patient's floor/unit and/or counseling patient: Coding Level of Care Code 55151 Subseq Hosp Care Lvl 3 Diagnoses Squamous cell lung cancer C34.90 Pancytopenia due to antineoplastic chemotherapy D61.810; T45.1X5A Electrolyte abnormality E87.8 Acute renal failure N17.9 Paraphimosis N47.2 Hypotension I95.9 Pneumonia J18.9 Fecal impaction K56.41 Pathologic fracture M84.40XA Severe protein-calorie malnutrition E43 COVID U07.1 Sacral decubitus ulcer L89.159 Generalized weakness R53.1 DVT prophylaxis Z29.9
[2022-04-26] MEDS: FLUCONAZOLE 100 MG TAB PO SCH (16:38)
[2022-04-26] MEDS: MIRTAZAPINE TAB 15 MG TAB PO SCH (20:19)
[2022-04-27] MEDS: AMPICILLIN/SULBACTAM SOD 3,000 MG in 0.9 % SODIUM CHLORIDE 100 ML IV SCH ×4 (00:52→17:46)
[2022-04-27] MEDS: D5W AND LACTATED RINGERS 1,000 ML IV SCH ×2 (06:06→12:22)
[2022-04-27 06:49] LABS: Basophils # (auto) 0.02 K/uL (0-0.2); Basophils % (auto) 0.4 %; Eosinophils # (auto) 0.03 K/uL (0-0.50); Eosinophils % (auto) 0.6 %; Hematocrit (blood only) 29.6 % (40.1-51.0); Hemoglobin 9.4 g/dl (14.0-18.0); Immature Granulocytes # (auto) 0.18 K/uL (0.00-0.02); Immature Granulocytes % (auto) 3.4 %; Lymphocytes # (auto) 1.71 K/uL (1.2-3.4); Lymphocytes % (auto) 32.1 %; Mean Corpuscular Hemoglobin 28.4 pg (25.0-34.0); Mean Corpuscular Hgb Conc 31.8 g/dL (32.0-36.0); Mean Corpuscular Volume 89.4 fL (80.0-100.0); Mean Platelet Volume 10.6 fL (9.4-12.4); Monocytes # (auto) 0.58 K/uL (0.24-0.82); Monocytes % (auto) 10.9 %; Neutrophils % (auto) 52.6 %; Platelet Count 83 K/uL (130-400); RDW Coefficient of Variation 19.9 % (11.5-14.5); RDW Standard Deviation 54.8 fL (36.4-46.3); Red Blood Count 3.31 M/uL (4.63-6.08); White Blood Count 5.32 K/ul (4.8-10.8)
[2022-04-27 07:09] LABS: BUN Creatinine Ratio 12.9 (10-20); Calcium 7.9 mg/dl (8.5-10.1); Creatinine Clr Calc Pharmacy 73.7 ml/min; Est GFR (African American) 105.5 ml/min; Magnesium 1.6 mg/dl (1.7-2.4); Phosphorus 3.1 mg/dl (2.5-4.9); Potassium 3.3 mmol/L (3.5-5.1)
[2022-04-27] MEDS ORDERED: POTASSIUM CHLORIDE CRTAB 20 MEQ TABCR PO STA (07:30)
--- NOTE | 2022-04-27 07:33 | Hospitalist Progress Note ---
Date of Service April 27, 2022 Assessment & Plan (1) Squamous cell lung cancer: Plan: Diagnosed in 02/2022 in the left lung.. With mets to the liver, brain, lymph nodes, and now with recent evidence of mets to the bones on CT chest 04/22. Now s/p brain radiation & one dose of carboplatin/paclitaxel/pembrolizumab on 04/06/2022. Since starting chemotherapy, has had significant failure to thrive, weight loss, low appetite, and now here with anemia and thrombocytopenia secondary to antineoplastic therapy -continue supportive care, IV fluids, nutritional support with boost added, and treatment for postobstructive pneumonia, as well as transfusional support as below given -Notified his oncologist that he is in house Family realistic about his case. Discussed the results of his chest CT to them from 04/22 and that it shows increasing cancer burden in the bones. Daughter asks for CM consult for extra home help. Consider palliative consultation if continues to deteriorate Still barely eating anything, starting Marinol -Most likely, his upcoming chemotherapy next week will be delayed CCP -Continue mirtazapine for appetite stimulation and he also recently got his medical marijuana card in the mail but has not started this yet( starting marinol here 04/28/22) -family trying to encourage him to eat more so he can be discharged; he is anxious to go home -diarrhea resolved -continue IVFs w/ D5LR at 80mL/hr due to previous hypoglycemia and poor po intake (2) Pancytopenia due to antineoplastic chemotherapy: Plan: Hemoglobin down to 7.5 on arrival, only up to 7.8 after 1 unit PRBCs Transfused a second unit PRBCs on 04/24 and then hgb up to 9.3 Hgb back down to 7.9 on 04/26--> give another unit of PRBCs Platelets continue to rise -hold Lovenox if drops below 50 (3) Electrolyte abnormality: Plan: replete (4) Acute renal failure: Plan: Creatinine elevated on arrival at 1.45 secondary to dehydration from poor p.o. intake Now resolved with IV fluids (5) Paraphimosis: Plan: noted on 04/25 reduced by urology I could not reduce the foreskin, having pain with doing so Have asked Urology to see him-greatly appreciated--> they reduced paraphimosis on 04/25 Remains reduced (6) Hypotension: Plan: Blood pressures now slightly improved after 2 units PRBCs and IVFs Secondary to hypovolemia and less likely sepsis cortisol to r/o adrenal insufficiency ordered and is normal Continue IV fluid hydration, PRBC transfusion for volume support as needed (7) Pneumonia: Plan: Continue Unasyn for postobstructive pneumonia Transition Augmentin when taking p.o. better and would finish out 7 day course- last day of Tx will be 04/29 (8) Fecal impaction: Plan: CT a/p on 04/23 notes "stool burden with possibly inspissated stool ball in the rectum." notes no BM in 2 days prior to admission -Now with multiple bowel movements after fleets enema x 2 and now with copious diarrhea Tucker catheter placed for presumed urinary retention-this may resolve now that his fecal impaction is resolved -added on Imodium prn for diarrhea and now improving (9) Pathologic fracture: Plan: Right distal clavicle also with osteolytic bone lesion left proximal humerus seen on xray and osteolytic lesions seen on chest CT 04/22 -caution with handling him for care discussed with RN due to being at risk for fractures (10) Severe protein-calorie malnutrition: Plan: added Boost BMI 17.2 2/2 metastatic CA and chemotherapy on mirtazapine for appetite stimulant and also marinol (11) COVID: Plan: old infection from 6 weeks ago when multiple family members also had COVID. Because he tested positive on a home test at that time, Infection Control policy is to keep him on isolation precautions here no treatment needed as I do not believe he has active COVID (12) Sacral decubitus ulcer: Plan: Wound care consulted Offload pressure (13) Generalized weakness: Plan: Secondary to chemotherapy effect, anemia, dehydration Treating all of these things as above PT/OT consults placed (14) DVT prophylaxis: Plan: Lovenox 40 mg SQ daily & SCDs -> Low concern for acute bleeding and patient is extremely high risk given age and active cancer. - Monitor hgb & platelets Extensive code discussion with patient and family - Patient willing to have 1 round of CPR/defibrillation (~5 minutes). No intubation or ventilation. Family willing to attempt central line and pressors for 1-2 days if needed. Disposition-continued stay, needs PT/OT evals, needs to improve po intake, ensure no more transfusions needed, and maintain hydration status on own prior to discharge. Admission and Anticipated Discharge Date Admission Date: April 23, 2022 Subjective Pt is dismissive doesn't want to eat, family is supportive of [place] wants to be left alone will consider chocolate milk shake Review of Systems Review of Systems: Unobtainable due to cognitive status and Other Physical Exam Physical Exam: The patient appeared stable, thin and dismissive Vital signs as documented. Lungs are clear to auscultation and appear unlabored Cardiac exam, Rhythm is regular.. No murmurs, rubs or gallops. Abdominal exam reveals normal bowel sounds, soft non tender, no masses Extremities are nonedematous and both pedal pulses are normal. Neurologic exam is alert and oriented, no focal loss of strength or sensation Skin is without bruises or rashes Psychologically is without concerns for anxiety or depression. Results & Data Results & Data ([facility]) Vital Signs (Past 12 Hours) Vital Signs Temp Pulse Pulse Resp BP Pulse Ox O2 Del Method 04/27/22 04:32 97.9 F 80 18 111/74 95 Room Air 04/27/22 00:35 77 04/26/22 23:32 98.1 F 79 18 100/59 L 95 Room Air 04/26/22 22:58 Room Air PG Care Time/CCT Total # of Minutes Spent Total Time Spent with Patient: Total time spent is greater than 50% in coordination of care (as documented) at patient's floor/unit and/or counseling patient: Coding Level of Care Code 83277 Subseq Hosp Care Lvl 2 Diagnoses Squamous cell lung cancer C34.90 Pancytopenia due to antineoplastic chemotherapy D61.810; T45.1X5A Electrolyte abnormality E87.8 Acute renal failure N17.9 Paraphimosis N47.2 Hypotension I95.9 Pneumonia J18.9 Fecal impaction K56.41 Pathologic fracture M84.40XA Severe protein-calorie malnutrition E43 COVID U07.1 Sacral decubitus ulcer L89.159 Generalized weakness R53.1 DVT prophylaxis Z29.9
[2022-04-27] MEDS: UMECLIDINIUM/VILANTEROL 62.5/25MCG 7 PUFFS/INHALER INH SCH (08:16)
[2022-04-27] MEDS: ENOXAPARIN INJ 40 MG/0.4 ML SYR SQ SCH (08:17)
[2022-04-27] MEDS: MAGNESIUM SULFATE / D5W 1 GM/100 ML BAG IV SCH ×2 (09:05→12:22)
[2022-04-27] MEDS ORDERED: methylPREDNISolone 20 MG in SYRINGE 0 ML IV ONE (18:00)
[2022-04-27] MEDS: MIRTAZAPINE TAB 15 MG TAB PO SCH (20:32)
[2022-04-28] MEDS: AMPICILLIN/SULBACTAM SOD 3,000 MG in 0.9 % SODIUM CHLORIDE 100 ML IV SCH ×4 (01:17→18:07)
[2022-04-28] MEDS: UMECLIDINIUM/VILANTEROL 62.5/25MCG 7 PUFFS/INHALER INH SCH (09:40)
[2022-04-28] MEDS: D5W AND LACTATED RINGERS 1,000 ML IV SCH ×2 (09:41→12:04)
[2022-04-28] MEDS: ENOXAPARIN INJ 40 MG/0.4 ML SYR SQ SCH (09:41)
[2022-04-28] MEDS: MIRTAZAPINE TAB 15 MG TAB PO SCH (20:15)
[2022-04-29] MEDS: AMPICILLIN/SULBACTAM SOD 3,000 MG in 0.9 % SODIUM CHLORIDE 100 ML IV SCH ×4 (00:07→18:20)
[2022-04-29] MEDS: D5W AND LACTATED RINGERS 1,000 ML IV SCH ×2 (00:07→11:08)
[2022-04-29] MEDS: UMECLIDINIUM/VILANTEROL 62.5/25MCG 7 PUFFS/INHALER INH SCH (08:44)
[2022-04-29] MEDS: ENOXAPARIN INJ 40 MG/0.4 ML SYR SQ SCH (08:44)
[2022-04-29 10:06] LABS: Basophils # (auto) 0.02 K/uL (0-0.2); Basophils % (auto) 0.3 %; Eosinophils # (auto) 0.01 K/uL (0-0.50); Eosinophils % (auto) 0.2 %; Hematocrit (blood only) 28.1 % (40.1-51.0); Hemoglobin 8.9 g/dl (14.0-18.0); Immature Granulocytes # (auto) 0.15 K/uL (0.00-0.02); Immature Granulocytes % (auto) 2.5 %; Lymphocytes % (auto) 26.7 %; Mean Corpuscular Hemoglobin 28.6 pg (25.0-34.0); Mean Corpuscular Hgb Conc 31.7 g/dL (32.0-36.0); Mean Corpuscular Volume 90.4 fL (80.0-100.0); Mean Platelet Volume 10.3 fL (9.4-12.4); Monocytes # (auto) 0.63 K/uL (0.24-0.82); Monocytes % (auto) 10.5 %; Neutrophils # (auto) 3.59 K/uL (1.4-6.5); Neutrophils % (auto) 59.8 %; Platelet Count 111 K/uL (130-400); RDW Coefficient of Variation 19.9 % (11.5-14.5); RDW Standard Deviation 58.5 fL (36.4-46.3); Red Blood Count 3.11 M/uL (4.63-6.08)
[2022-04-29 10:23] LABS: BUN Creatinine Ratio 15.8 (10-20); Calcium 7.8 mg/dl (8.5-10.1); Creatinine Clr Calc Pharmacy 66.8 ml/min; Magnesium 1.6 mg/dl (1.7-2.4); Potassium 3.5 mmol/L (3.5-5.1)
[2022-04-29 10:48] LABS: Folate (Folic Acid) 5.91 ng/ml (>5.38)
[2022-04-29] MEDS: MAGNESIUM SULFATE / D5W 1 GM/100 ML BAG IV SCH ×2 (11:13→13:09)
--- NOTE | 2022-04-29 17:07 | Hospitalist Progress Note ---
Date of Service April 29, 2022 Assessment & Plan (1) Squamous cell lung cancer: Plan: Diagnosed in 02/2022 in the left lung. Stage 4 - mets to the liver, brain, lymph nodes, and now with recent evidence of mets to the bones on CT chest 04/22. s/p brain radiation & one dose of carboplatin/paclitaxel/pembrolizumab on 04/06/2022. Since starting chemotherapy, has had significant failure to thrive, weight loss, low appetite, and now here with anemia and thrombocytopenia secondary to antineoplastic therapy. Has required transfusional support throughout the stay. Failure to thrive continues. I am concerned the marinol made him more confused thus will stop. Change marinol to dexamethasone 6mg daily. This may help his breathing as well as appetite. CT head obtained today due to confusion and known h/o brain mets. No new brain mets or CVA or ICH seen. (2) Pancytopenia due to antineoplastic chemotherapy: Plan: s/p 3 units of PRBCs while here. Low platelets improving. B12 level today wnl. Folate is low-normal - will give folic acid 1mg IV Daily. WBC count is satisfactory. H/H acceptable today. (3) Acute renal failure: Plan: s/p IV fluids with resolution. (4) Paraphimosis: Plan: Developed such on 04/25/22. [facility] [place] Urology consulted with successful reduction. Tucker remains in place. (5) Hypotension: Plan: Resolved noted that recent cortisol level was wnl (6) Pneumonia: Plan: LLL. Remains on IV Unasyn for postobstructive pneumonia Today is day #7. Stop abx after tonight's dose. (7) Fecal impaction: Plan: Had had numerous stools several days ago, and about 1 stool/day since then. Due to his c/o abd pain obtained KUB x-ray today. Still with considerable stool burden in colon & rectum. Dulcolax po x 1 now and then aggressive daily bowel regimen. Stop the loperamide. (8) Pathologic fracture: Plan: Right distal clavicle. Ideally should be in sling for such. (9) Severe protein-calorie malnutrition: Plan: 2nd to advanced cancer, ?COVID, etc. Cont remeron. stop marionol due to concerns it caused worsening confusion. start dexamethasone 6mg daily - should help breathing, appetite, and bone pain. (10) COVID: Plan: Tested + on home test in early March by report. Cannot exclude that this is a new infection since March, but also possible that the PCR test is simply positive due to the prior infection. Either way continue isolation. (11) Sacral decubitus ulcer: Plan: Wound care consulted Offload pressure (12) Generalized weakness: Plan: Multifactorial PT,OT when able (13) DVT prophylaxis: Plan: Lovenox 40 mg daily. (14) Toxic encephalopathy: Plan: 2nd marinol? stop marinol and reassess tomorrow (15) COPD (chronic obstructive pulmonary disease): Plan: likely has exacerbation start dexamethasone 6mg daily inhalers etc Plan lower IV fluid rate Prior attending discussed with family and patient -- patient willing to have 1 round of CPR/defibrillation (~5 minutes). No intubation or ventilation. Family willing to attempt central line and pressors for 1-2 days if needed. I updated pt's by phone today. Admission and Anticipated Discharge Date Admission Date: April 23, 2022 Subjective tele overnight wnl didn't have good night was confused, apparently self-removed several IVs, etc during the visit he was confused - thought he was at home in [place] stated the year was 1921 he was coughing throughout the visit c/o abdominal pain no chest pain staff report ongoing poor appetite, taking at most 25% of meals I spoke with his by phone - she states that "yesterday was a good day" (for his mentation) but "today he was confused" Review of Systems Review of Systems: gen - fatigue, poor appetite cv - no chest pain pulm - coughing, no sputum GI - last BM - 04/28 (per staff) Physical Exam Physical Exam: gen - confused, thin, coughing mouth - MM dry, no thrush neck - no JVD heart - RRR, s1 s2 lungs - course BS b/l, rales on right, coughing abd - mildly tender epigastric region, bS+, minimal distension ext - thin, pulses 2+ b/l, no edema psych - a/o to person only Results & Data Results & Data ([facility]) Vital Signs (Past 12 Hours) Vital Signs Temp Pulse Resp BP Pulse Ox O2 Del Method 04/29/22 16:11 36.7 C 86 18 109/64 95 Room Air 07/20/22 11:07 36.3 C L 85 20 112/65 95 Room Air 04/29/22 08:00 Room Air 04/29/22 07:46 36.3 C L 89 17 101/67 95 Room Air Laboratory Results Laboratory Results - last 24 hr 04/29/22 04/29/22 04/29/22 09:39 09:39 09:39 WBC 6.00 RBC 3.11 L Hgb 8.9 L Hct 28.1 L MCV 90.4 MCH 28.6 MCHC 31.7 L RDW Std Deviation 58.5 H RDW Coeff of Ivett 19.9 H Plt Count 111 L MPV 10.3 Immature Gran % (Auto) 2.5 Neut % (Auto) 59.8 Lymph % (Auto) 26.7 Perkins % (Auto) 10.5 Eos % (Auto) 0.2 Baso % (Auto) 0.3 Neut # (Auto) 3.59 Lymph # (Auto) 1.60 Perkins # (Auto) 0.63 Eos # (Auto) 0.01 Baso # (Auto) 0.02 Immature Gran # (Auto) 0.15 H Sodium 141 Potassium 3.5 Chloride 109 H Carbon Dioxide 28 Anion Gap 4 BUN 12 Creatinine 0.76 Est Cr Clr Drug Dosing 66.8 Est GFR ( Amer) 102.0 Est GFR (Non-Af Amer) 88.0 BUN/Creatinine Ratio 15.8 Glucose 131 H Calcium 7.8 L Magnesium 1.6 L Vitamin B12 825 Folate 5.91 PG Care Time/CCT Total # of Minutes Spent Total Time Spent with Patient: Total time spent is greater than 50% in coordination of care (as documented) at patient's floor/unit and/or counseling patient: Coding Level of Care Code 42854 Subseq Hosp Care Lvl 3 Diagnoses Squamous cell lung cancer C34.90 Pancytopenia due to antineoplastic chemotherapy D61.810; T45.1X5A Acute renal failure N17.9 Paraphimosis N47.2 Hypotension I95.9 Pneumonia J18.9 Fecal impaction K56.41 Pathologic fracture M84.40XA Severe protein-calorie malnutrition E43 COVID U07.1 Sacral decubitus ulcer L89.159 Generalized weakness R53.1 DVT prophylaxis Z29.9 Toxic encephalopathy G92.9 COPD (chronic obstructive pulmonary disease) J44.9
--- NOTE | 2022-04-29 18:03 | XRay Report ---
KUB HISTORY: Generalized abd pain, recent constipation COMPARISON: Abdomen and pelvis CT 04/23/2022. FINDINGS: There is moderate gaseous distention of the stomach which has progressed. No dilated loops of small bowel to suggest an obstruction. There is moderate well-formed stool seen throughout the col on. The large rectal stool ball seen on the prior study has decreased in size. There is a right hip h emiarthroplasty. No renal calculi. No ureteral calculi. No pneumoperitoneum or pneumatosis. IMPRESSION: 1. Moderate gaseous distention of the stomach. 2. No evidence for small bowel obstruction. 3. Moderate well-formed stool seen within the colon. ACT 112: Negative or not required by law. Electronically signed by: Isak Moreau M.D. 04/29/2022 6:01 PM
--- NOTE | 2022-04-29 18:25 | CT Scan Report ---
CT SCAN OF THE BRAIN WITHOUT IV CONTRAST CLINICAL HISTORY: Change in mental status. Lung cancer with intracranial metastatic disease. COMPARISON STUDY: MRI of the brain dated 03/04/2022. Treatment planning CT dated 03/12/2022 TECHNIQUE: Unenhanced axial CT scan of the brain is performed from the vertex to the skull base. A do se lowering technique was utilized adhering to the principles of ALARA. CT DOSE: 720.95 mGycm FINDINGS: Brain parenchyma: There is age-related involutional change noting mild to moderate subcortical and pe riventricular microangiopathic disease. Low-attenuation in the high right parafalcine region on image #23 is likely related to known metastatic disease/treatment related change. There is no hemorrhage, mass effect, or evidence of acute territorial ischemia by CT criteria. Shook-white matter differentiat ion is preserved. No extra-axial fluid collection is seen. Ventricles, sulci, cisterns: Prominent secondary to involutional change. Intracranial vasculature: There is atherosclerotic calcification of the cavernous carotid arteries. Calvarium: No destructive calvarial lesion is identified. Soft tissues: 2 metallic foreign bodies are present within the left scalp. Sinuses and mastoids: There is trace mucosal thickening within the maxillary antra. The remaining par anasal sinuses are clear. The mastoid air cells are well pneumatized. Orbits: The bony orbits are grossly intact. IMPRESSION: 1. There is no hemorrhage, mass effect, or evidence of acute territorial ischemia by CT criteria. 2. Low-attenuation in the high right parafalcine region is likely related to known metastatic disease /treatment related change. This is similar to the 03/12/[address] scan. ACT 112: Negative or not required by law. Electronically signed by: Paul Clayton M.D. 04/29/2022 6:22 PM
[2022-04-29] MEDS ORDERED: bisacodyL 5 MG TABEC PO ONE (19:05)
[2022-04-29] MEDS ORDERED: FOLIC ACID 1 MG in SYRINGE 9.8 ML IV ONE (19:30)
[2022-04-29] MEDS: dexAMETHasone 4 MG TAB PO SCH (20:02)
[2022-04-29] MEDS: PANTOprazole 40 MG TAB PO SCH (20:03)
[2022-04-29] MEDS: MIRTAZAPINE TAB 15 MG TAB PO SCH (20:14)
[2022-04-30] MEDS: AMPICILLIN/SULBACTAM SOD 3,000 MG in 0.9 % SODIUM CHLORIDE 100 ML IV SCH ×3 (01:09→13:52)
[2022-04-30] MEDS: D5W AND LACTATED RINGERS 1,000 ML IV SCH (02:30)
[2022-04-30 06:58] LABS: Hemoglobin 8.3 g/dl (14.0-18.0); Mean Corpuscular Hemoglobin 28.5 pg (25.0-34.0); Mean Corpuscular Hgb Conc 31.9 g/dL (32.0-36.0); Mean Corpuscular Volume 89.3 fL (80.0-100.0); Mean Platelet Volume 10.8 fL (9.4-12.4); Platelet Count 131 K/uL (130-400); RDW Coefficient of Variation 19.4 % (11.5-14.5); RDW Standard Deviation 56.9 fL (36.4-46.3); Red Blood Count 2.91 M/uL (4.63-6.08); White Blood Count 5.47 K/ul (4.8-10.8)
[2022-04-30 07:21] LABS: BUN Creatinine Ratio 22.6 (10-20); Calcium 7.7 mg/dl (8.5-10.1); Creatinine Clr Calc Pharmacy 81.3 ml/min; Est GFR (African American) 110.9 ml/min; Est GFR (Non-African American) 95.7 ml/min; Magnesium 1.7 mg/dl (1.7-2.4); Potassium 3.6 mmol/L (3.5-5.1)
[2022-04-30] MEDS: FOLIC ACID 1 MG in SYRINGE 9.8 ML IV SCH (07:49)
[2022-04-30] MEDS: UMECLIDINIUM/VILANTEROL 62.5/25MCG 7 PUFFS/INHALER INH SCH (07:49)
[2022-04-30] MEDS: ENOXAPARIN INJ 40 MG/0.4 ML SYR SQ SCH (07:49)
[2022-04-30] MEDS: PANTOprazole 40 MG TAB PO SCH (07:50)
[2022-04-30] MEDS: dexAMETHasone 4 MG TAB PO SCH (07:50)
[2022-04-30] MEDS ORDERED: MAGNESIUM SULFATE / D5W 1 GM/100 ML BAG IV ONE (09:36)
--- NOTE | 2022-04-30 20:33 | Hospitalist Progress Note ---
Date of Service April 30, 2022 Assessment & Plan (1) Squamous cell lung cancer: Plan: Diagnosed in 02/2022 in the left lung. Stage 4 - mets to the liver, brain, lymph nodes, and now with recent evidence of mets to the bones on CT chest 04/22. s/p brain radiation & one dose of carboplatin/paclitaxel/pembrolizumab on 04/06/2022. Since starting chemotherapy, has had significant failure to thrive, weight loss, low appetite, and now here with anemia and thrombocytopenia secondary to antineoplastic therapy. Has required transfusional support throughout the stay. Failure to thrive has been problematic but did eat better today and less confused. I am concerned the marinol made him more confused thus will stop. Cont dexamethasone 6mg daily. This may help his breathing as well as appetite. CT head obtained yesterday due to confusion and known h/o brain mets. No new brain mets or CVA or ICH seen. (2) Pancytopenia due to antineoplastic chemotherapy: Plan: s/p 3 units of PRBCs while here. Low platelets improving. B12 level yesterday wnl. Folate is low-normal - giving folic acid 1mg IV Daily. WBC count is satisfactory. H/H trending down mildly but acceptable today. Check in 48 hours. (3) Acute renal failure: Plan: s/p IV fluids with resolution. stop IV fluids since appetite better today. (4) Paraphimosis: Plan: Developed such on 04/25/22. [facility] [place] Urology consulted with successful reduction. Tucker remains in place. (5) Hypotension: Plan: Resolved noted that recent cortisol level was wnl (6) Pneumonia: Plan: LLL. stop IV Unasyn for postobstructive pneumonia today. Completed 7+ days. (7) Fecal impaction: Plan: Most recent KUB x-ray still with significant colorectal fecal load. s/p dulcolax yesterday pm with 3 BMs. tenderness, distension better on exam today. needs bowel regimen. reports chronic, somewhat severe constipation. (8) Pathologic fracture: Plan: Right distal clavicle. Ideally should be in sling for such but no pain reported by him today. minimal, if any, deformity noted on exam today. (9) Severe protein-calorie malnutrition: Plan: 2nd to advanced cancer, ?COVID, etc. Cont remeron. Cont dexamethasone 6mg daily - should help breathing, appetite, and bone pain. (10) COVID: Plan: Tested + on home test in early March by report. Cannot exclude that this is a new infection since March, but also possible that the PCR test is simply positive due to the prior infection. Either way continue isolation per IC officer recs. (11) Sacral decubitus ulcer: Plan: Wound care consulted Offload pressure (12) Generalized weakness: Plan: Multifactorial PT,OT when able (13) DVT prophylaxis: Plan: Lovenox 40 mg daily. (14) Toxic encephalopathy: Plan: 2nd marinol - improved with stopping such (15) COPD (chronic obstructive pulmonary disease): Plan: likely has exacerbation day #2 dexamethasone 6mg daily inhalers etc flare improved today Plan updated again by phone this evening made some progress overnight on all levels stop IV fluids Prior attending discussed with family and patient -- patient willing to have 1 round of CPR/defibrillation (~5 minutes). No intubation or ventilation. Family willing to attempt central line and pressors for 1-2 days if needed. will need rehab post-d/c Admission and Anticipated Discharge Date Admission Date: April 23, 2022 Subjective per staff he is eating better more oriented today per staff as well not as agitated last pm as prior 3 BMs following the dulcolax suppos yesterday he denies any abd pain today denies any dyspnea minimal cough Review of Systems Review of Systems: gen - no fevers or chills cv - no chest pain pulm - denies dyspnea or wheeze GI - denies pain today; no vomiting per staff Physical Exam Physical Exam: gen - confusion better today; thin, not coughing today mouth - MM more moist today neck - no JVD heart - RRR, s1 s2 lungs - airation much improved today, minimal crackles bases, no wheeze abd - soft NT ND BS+ ext - thin, pulses 2+ b/l, no edema psych - a/o to person place (hospital, but not town); knows it is 2021 but not the day musculo- right clavicle - minimal if any distal deformity near AC joint; no tenderness to palpation Results & Data Results & Data ([facility]) Vital Signs (Past 12 Hours) Vital Signs Temp Pulse Resp BP Pulse Ox O2 Del Method 04/30/22 17:08 36.6 C 70 20 115/69 92 Room Air 04/30/22 12:00 36.6 C 78 18 96/50 L 92 Room Air Laboratory Results Laboratory Results - last 24 hr 04/30/22 04/30/22 06:34 06:34 WBC 5.47 RBC 2.91 L Hgb 8.3 L Hct 26.0 L MCV 89.3 MCH 28.5 MCHC 31.9 L RDW Std Deviation 56.9 H RDW Coeff of Ivett 19.4 H Plt Count 131 MPV 10.8 Sodium 137 Potassium 3.6 Chloride 109 H Carbon Dioxide 24 Anion Gap 4 BUN 14 Creatinine 0.62 Est Cr Clr Drug Dosing 81.3 Est GFR ( Amer) 110.9 Est GFR (Non-Af Amer) 95.7 BUN/Creatinine Ratio 22.6 H Glucose 178 H Calcium 7.7 L Magnesium 1.7 PG Care Time/CCT Total # of Minutes Spent Total Time Spent with Patient: Total time spent is greater than 50% in coordination of care (as documented) at patient's floor/unit and/or counseling patient: Coding Level of Care Code 78276 Subseq Hosp Care Lvl 2 Diagnoses Squamous cell lung cancer C34.90 Pancytopenia due to antineoplastic chemotherapy D61.810; T45.1X5A Acute renal failure N17.9 Paraphimosis N47.2 Hypotension I95.9 Pneumonia J18.9 Fecal impaction K56.41 Pathologic fracture M84.40XA Severe protein-calorie malnutrition E43 COVID U07.1 Sacral decubitus ulcer L89.159 Generalized weakness R53.1 DVT prophylaxis Z29.9 Toxic encephalopathy G92.9 COPD (chronic obstructive pulmonary disease) J44.9
[2022-04-30] MEDS: MIRTAZAPINE TAB 15 MG TAB PO SCH (22:23)
[2022-05-01] MEDS ORDERED: MELATONIN 3 MG TAB PO PRN ×2 (02:23→19:29)
[2022-05-01] MEDS: PANTOprazole 40 MG TAB PO SCH (09:44)
[2022-05-01] MEDS: dexAMETHasone 4 MG TAB PO SCH (09:44)
[2022-05-01] MEDS: ENOXAPARIN INJ 40 MG/0.4 ML SYR SQ SCH (09:45)
[2022-05-01] MEDS: UMECLIDINIUM/VILANTEROL 62.5/25MCG 7 PUFFS/INHALER INH SCH (09:45)
[2022-05-01] MEDS: FOLIC ACID 1 MG in SYRINGE 9.8 ML IV SCH (09:45)
[2022-05-01] MEDS: SENNA 8.6 MG TAB PO SCH (10:41)
[2022-05-01] MEDS: POLYETHYLENE (MIRALAX) 17 GM PACK PO SCH (10:41)
[2022-05-01] MEDS: ACETAMINOPHEN 325 MG TAB PO PRN (20:27)
--- NOTE | 2022-05-01 21:13 | Hospitalist Progress Note ---
Date of Service May 01, 2022 Assessment & Plan (1) Squamous cell lung cancer: Plan: Diagnosed in 02/2022 in the left lung. Stage 4 - mets to the liver, brain, lymph nodes, and now with recent evidence of mets to the bones on CT chest 04/22. s/p brain radiation & one dose of carboplatin/paclitaxel/pembrolizumab on 04/06/2022. Since starting chemotherapy, has had significant failure to thrive, weight loss, low appetite, and now here with anemia and thrombocytopenia secondary to antineoplastic therapy. Has required transfusional support throughout the stay. Failure to thrive has been problematic eating is better on the steroids. Cont dexamethasone 6mg daily. This may help his breathing as well as appetite. CT head obtained this week due to confusion and known h/o brain mets. No new brain mets or CVA or ICH seen. (2) Pancytopenia due to antineoplastic chemotherapy: Plan: s/p 3 units of PRBCs while here. Low platelets improving. B12 level wnl. Folate is low-normal - giving folic acid 1mg IV Daily. WBC count is satisfactory. Repeat CBC am for stability. (3) Acute renal failure: Plan: s/p IV fluids with resolution. no further IV fluids at this time. (4) Paraphimosis: Plan: Developed such on 04/25/22. [facility] [place] [facility] consulted with successful reduction. Tucker remains in place. (5) Hypotension: Plan: Resolved noted that recent cortisol level was wnl (6) Pneumonia: Plan: LLL. completed 7+ days of IV Unasyn for postobstructive pneumonia. clinically resolved. (7) Fecal impaction: Plan: resolved. reports chronic, somewhat severe constipation. cont daily bowel regimen. (8) Pathologic fracture: Plan: Right distal clavicle. Ideally should be in sling for such but no pain reported by him and minimal, if any, deformity noted on exam. follow. (9) Severe protein-calorie malnutrition: Plan: 2nd to advanced cancer, ?COVID, etc. Cont remeron. Cont dexamethasone 6mg daily - should help breathing, appetite, and bone pain. (10) COVID: Plan: Tested + on home test in early March by report. Cannot exclude that this is a new infection since March, but also possible that the PCR test is simply positive due to the prior infection. Either way continue isolation per IC officer recs. (11) Sacral decubitus ulcer: Plan: Wound care consulted Offload pressure (12) Generalized weakness: Plan: Multifactorial PT,OT when able (13) DVT prophylaxis: Plan: Lovenox 40 mg daily. (14) Toxic encephalopathy: Plan: 2nd marinol - improved with stopping such but still not at baseline start risperdal 0.25mg HS re-eval tomorrow (15) COPD (chronic obstructive pulmonary disease): Plan: likely has exacerbation day #2 dexamethasone 6mg daily inhalers etc flare improved today Plan updated this week by phone twice Prior attending discussed with family and patient -- patient willing to have 1 round of CPR/defibrillation (~5 minutes). No intubation or ventilation. Family willing to attempt central line and pressors for 1-2 days if needed. will need rehab post-d/c -very, very weak if good night stop his telemetry Admission and Anticipated Discharge Date Admission Date: April 23, 2022 Subjective tele stable overnight no events appetite improved he is still confused albeit not as severe but couldn't tell me where he was or why he was here thought he was in [place] did get the year right Review of Systems Review of Systems: gen - "I feel ok"; appetite better; no fevers cv - no orthopnea pulm - denies cough or dyspnea GI - no vomiting, no pain Physical Exam Physical Exam: gen - confusion about the same as yesterday; thin; NAD mouth - MMM neck - no JVD heart - RRR, s1 s2 lungs - minimal crackles bases b/l, no wheeze abd - soft NT ND BS+ ext - thin, pulses 2+ b/l, no edema psych - a/o to person and year otherwise disoriented Results & Data Results & Data ([facility]) Vital Signs (Past 12 Hours) Vital Signs Temp Pulse Resp BP Pulse Ox O2 Del Method 05/01/22 19:35 36.5 C 76 18 101/54 L 96 Room Air 05/01/22 17:00 36.4 C L 66 17 104/52 L 93 Room Air 05/01/22 10:00 Room Air PG Care Time/CCT Total # of Minutes Spent Total Time Spent with Patient: Total time spent is greater than 50% in coordination of care (as documented) at patient's floor/unit and/or counseling patient: Coding Level of Care Code 93952 Subseq Hosp Care Lvl 2 Diagnoses Squamous cell lung cancer C34.90 Pancytopenia due to antineoplastic chemotherapy D61.810; T45.1X5A Acute renal failure N17.9 Paraphimosis N47.2 Hypotension I95.9 Pneumonia J18.9 Fecal impaction K56.41 Pathologic fracture M84.40XA Severe protein-calorie malnutrition E43 COVID U07.1 Sacral decubitus ulcer L89.159 Generalized weakness R53.1 DVT prophylaxis Z29.9 Toxic encephalopathy G92.9 COPD (chronic obstructive pulmonary disease) J44.9
[2022-05-01] MEDS: MIRTAZAPINE TAB 15 MG TAB PO SCH (21:29)
[2022-05-01] MEDS: risperiDONE 0.5 MG TABLET PO SCH (21:29)
[2022-05-02 07:31] LABS: Hematocrit (blood only) 27.5 % (40.1-51.0); Hemoglobin 8.6 g/dl (14.0-18.0); Mean Corpuscular Hemoglobin 28.3 pg (25.0-34.0); Mean Corpuscular Hgb Conc 31.3 g/dL (32.0-36.0); Mean Corpuscular Volume 90.5 fL (80.0-100.0); Mean Platelet Volume 10.2 fL (9.4-12.4); Platelet Count 208 K/uL (130-400); RDW Coefficient of Variation 19.9 % (11.5-14.5); Red Blood Count 3.04 M/uL (4.63-6.08); White Blood Count 4.66 K/ul (4.8-10.8)
[2022-05-02 08:20] LABS: Calcium 8.1 mg/dl (8.5-10.1); Potassium 4.7 mmol/L (3.5-5.1)
[2022-05-02 08:55] LABS: BUN Creatinine Ratio 24.2 (10-20); Creatinine Clr Calc Pharmacy 92.1 ml/min; Est GFR (African American) 108.1 ml/min; Est GFR (Non-African American) 93.3 ml/min
[2022-05-02] MEDS: POLYETHYLENE (MIRALAX) 17 GM PACK PO SCH (09:57)
[2022-05-02] MEDS: PANTOprazole 40 MG TAB PO SCH (09:58)
[2022-05-02] MEDS: UMECLIDINIUM/VILANTEROL 62.5/25MCG 7 PUFFS/INHALER INH SCH (09:58)
[2022-05-02] MEDS: FOLIC ACID 1 MG in SYRINGE 9.8 ML IV SCH (09:58)
[2022-05-02] MEDS: dexAMETHasone 4 MG TAB PO SCH (09:58)
[2022-05-02] MEDS: SENNA 8.6 MG TAB PO SCH (09:59)
[2022-05-02] MEDS: ENOXAPARIN INJ 40 MG/0.4 ML SYR SQ SCH (09:59)
[2022-05-02] MEDS ORDERED: MELATONIN 3 MG TAB PO PRN (15:50)
[2022-05-02] MEDS: ACETAMINOPHEN 325 MG TAB PO PRN (19:40)
[2022-05-02] MEDS: MIRTAZAPINE TAB 15 MG TAB PO SCH (19:40)
[2022-05-02] MEDS: risperiDONE 0.5 MG TABLET PO SCH (19:41)
--- NOTE | 2022-05-02 20:41 | Hospitalist Progress Note ---
Date of Service May 02, 2022 Assessment & Plan (1) Squamous cell lung cancer: Plan: Diagnosed in 02/2022 in the left lung. Stage 4 - mets to the liver, brain, lymph nodes, and now with recent evidence of mets to the bones on CT chest 04/22. s/p brain radiation & one dose of carboplatin/paclitaxel/pembrolizumab on 04/06/2022. Since starting chemotherapy, has had significant failure to thrive, weight loss, low appetite, and now here with anemia and thrombocytopenia secondary to antineoplastic therapy. Has required transfusional support throughout the stay. Failure to thrive has been severe but eating is finally better on the steroids. Cont dexamethasone but lower dose to 4mg daily starting tomorrow. CT head obtained this week due to confusion and known h/o brain mets. No new brain mets or CVA or ICH seen. (2) Pancytopenia due to antineoplastic chemotherapy: Plan: s/p 3 units of PRBCs while here. Low platelets resolved. B12 level wnl. Folate is low-normal - giving folic acid 1mg Daily. WBC count is satisfactory. H/H low but stable/acceptable. (3) Acute renal failure: Plan: resolved pre-renal (4) Paraphimosis: Plan: Developed such on 04/25/22. [facility] [place] [facility] [place] with successful reduction. Ruth remains in place. Can d/c ruth in am. Voiding trial. (5) Hypotension: Plan: Resolved noted that recent cortisol level was wnl (6) Pneumonia: Plan: LLL. completed 7+ days of IV Unasyn for postobstructive pneumonia. clinically resolved. (7) Fecal impaction: Plan: resolved. reports chronic, somewhat severe constipation. cont daily bowel regimen. (8) Pathologic fracture: Plan: Right distal clavicle. Ideally should be in sling for such but no pain reported by him and minimal, if any, deformity noted on exam. follow. (9) Severe protein-calorie malnutrition: Plan: 2nd to advanced cancer, ?COVID, etc. Cont remeron. Cont dexamethasone 4mg daily - should help breathing, appetite, and bone pain. (10) COVID: Plan: Tested + on home test in early March by report. Cannot exclude that this is a new infection since March, but also possible that the PCR test is simply positive due to the prior infection. Either way continue isolation per IC officer recs. Can d/c isolation on Wednesday. (11) Sacral decubitus ulcer: Plan: Wound care consulted Offload pressure (12) Generalized weakness: Plan: Multifactorial PT,OT when able (13) DVT prophylaxis: Plan: Lovenox 40 mg daily. (14) Toxic encephalopathy: Plan: 2nd marinol - resolved Cont risperdal 0.25mg HS (15) COPD (chronic obstructive pulmonary disease): Plan: with exacerbation -- improved day #3 dexamethasone - reduce to 4mg daily tomorrow inhalers etc Plan updated by phone this evening Prior attending discussed with family and patient -- patient willing to have 1 round of CPR/defibrillation (~5 minutes). No intubation or ventilation. Family willing to attempt central line and pressors for 1-2 days if needed. will need rehab post-d/c -very, very weak - SNF level can d/c telemetry Admission and Anticipated Discharge Date Admission Date: April 23, 2022 Subjective tele overnight - brief episode (a few seconds) of SB to the 40s with sleeping otherwise NSR slept all night no agitation during the visit he was very animated & talkative he knew he was in the hospital but wasn't sure of the location he said "my family should be coming any minute" eating much better Review of Systems Review of Systems: gen - tired cv - no orthopnea or pain pulm - mild cough, but no dyspnea GI - no pain - c/o pain during the visit (I found that he was laying on his ruth catheter and the catheter was pulling) Physical Exam Physical Exam: gen - best he has looked all week; animated/good mood today; watching TV mouth - MMM neck - no JVD heart - RRR, s1 s2 lungs - scant crackles bases b/l, no wheeze abd - soft NT ND BS+ ext - thin, pulses 2+ b/l, no edema - I repositioned his catheter to the other side of the bed; since the ruth was being pulled his foreskin had retracted across the glans; able to reduce the foreskin down to the tip of the glans penis Results & Data Results & Data ([facility]) Vital Signs (Past 12 Hours) Vital Signs Temp Pulse Pulse Resp BP Pulse Ox O2 Del Method 05/02/22 20:26 Room Air 05/02/22 17:15 36.6 C 76 18 100/62 97 Room Air 05/02/22 15:00 73 Laboratory Results Laboratory Results - last 24 hr 05/02/22 05/02/22 06:57 06:57 WBC 4.66 L RBC 3.04 L Hgb 8.6 L Hct 27.5 L MCV 90.5 MCH 28.3 MCHC 31.3 L RDW Std Deviation 61.0 H RDW Coeff of Ivett 19.9 H Plt Count 208 MPV 10.2 Sodium 139 Potassium 4.7 Chloride 107 Carbon Dioxide 29 Anion Gap 3 BUN 16 Creatinine 0.66 Est Cr Clr Drug Dosing 92.1 Est GFR ( Amer) 108.1 Est GFR (Non-Af Amer) 93.3 BUN/Creatinine Ratio 24.2 H Glucose 98 Calcium 8.1 L PG Care Time/CCT Total # of Minutes Spent Total Time Spent with Patient: Total time spent is greater than 50% in coordination of care (as documented) at patient's floor/unit and/or counseling patient: Coding Level of Care Code 53813 Subseq Hosp Care Lvl 2 Diagnoses Squamous cell lung cancer C34.90 Pancytopenia due to antineoplastic chemotherapy D61.810; T45.1X5A Acute renal failure N17.9 Paraphimosis N47.2 Hypotension I95.9 Pneumonia J18.9 Fecal impaction K56.41 Pathologic fracture M84.40XA Severe protein-calorie malnutrition E43 COVID U07.1 Sacral decubitus ulcer L89.159 Generalized weakness R53.1 DVT prophylaxis Z29.9 Toxic encephalopathy G92.9 COPD (chronic obstructive pulmonary disease) J44.9
[2022-05-03] MEDS: POLYETHYLENE (MIRALAX) 17 GM PACK PO SCH (09:55)
[2022-05-03] MEDS: ENOXAPARIN INJ 40 MG/0.4 ML SYR SQ SCH (09:55)
[2022-05-03] MEDS: SENNA 8.6 MG TAB PO SCH (09:55)
[2022-05-03] MEDS: PANTOprazole 40 MG TAB PO SCH (09:55)
[2022-05-03] MEDS: dexAMETHasone 4 MG TAB PO SCH (09:55)
[2022-05-03] MEDS: FOLIC ACID 1 MG TAB PO SCH (09:56)
[2022-05-03] MEDS: UMECLIDINIUM/VILANTEROL 62.5/25MCG 7 PUFFS/INHALER INH SCH (11:57)
[2022-05-03] MEDS: MIRTAZAPINE TAB 15 MG TAB PO SCH (20:14)
--- NOTE | 2022-05-03 20:59 | Hospitalist Progress Note ---
Date of Service May 03, 2022 Assessment & Plan (1) Squamous cell lung cancer: Plan: Diagnosed in 02/2022 in the left lung. Stage 4 - mets to the liver, brain, lymph nodes, and now with recent evidence of mets to the bones on CT chest 04/22. s/p brain radiation & one dose of carboplatin/paclitaxel/pembrolizumab on 04/06/2022. Since starting chemotherapy, has had significant failure to thrive, weight loss, low appetite, and now here with anemia and thrombocytopenia secondary to antineoplastic therapy. Has required transfusional support throughout the stay. Failure to thrive has been severe but eating has improved this week. CT head obtained this week due to confusion and known h/o brain mets. No new brain mets or CVA or ICH seen. (2) Pancytopenia due to antineoplastic chemotherapy: Plan: s/p 3 units of PRBCs while here. Low platelets resolved. B12 level wnl. Folate is low-normal - giving folic acid 1mg Daily. WBC count is satisfactory. H/H low but stable/acceptable. Check cbc every 2-3 days. (3) Acute renal failure: Plan: resolved pre-renal (4) Paraphimosis: Plan: Developed such on 04/25/22. [facility] [place] [facility] consulted with successful reduction. Tried to d/c ruth today -- failed voiding trial, ruth placed back. Start flomax 0.4mg daily. (5) Hypotension: Plan: Resolved noted that recent cortisol level was wnl (6) Pneumonia: Plan: LLL. completed 7+ days of IV Unasyn for postobstructive pneumonia. clinically resolved. (7) Fecal impaction: Plan: resolved. reports chronic, somewhat severe constipation. cont daily bowel regimen - senna + miralax. (8) Pathologic fracture: Plan: Right distal clavicle. Ideally should be in sling for such but no pain reported by him and minimal, if any, deformity noted on exam. follow. (9) Severe protein-calorie malnutrition: Plan: 2nd to advanced cancer, ?COVID, etc. Cont remeron. Cont dexamethasone 4mg daily - should help breathing, appetite, and bone pain. (10) COVID: Plan: Tested + on home test in early March by report. Cannot exclude that this is a new infection since March, but also possible that the PCR test is simply positive due to the prior infection. Either way continue isolation per IC officer recs. Can d/c isolation on Wednesday. (11) Sacral decubitus ulcer: Plan: Wound care consulted Offload pressure (12) Generalized weakness: Plan: Multifactorial PT,OT when able (13) DVT prophylaxis: Plan: Lovenox 40 mg daily. (14) Toxic encephalopathy: Plan: 2nd marinol - resolved Cont risperdal 0.25mg HS - this has helped with mentation (15) COPD (chronic obstructive pulmonary disease): Plan: with exacerbation -- improved day #4 dexamethasone - reduce to 4mg today plan ~7 days inhalers etc (16) Urinary retention: Plan: failed voiding trial today ruth placed back start flomax 0.4mg daily will need urology f/u post-d/c Plan updated by phone yesterday Prior attending discussed with family and patient -- patient willing to have 1 round of CPR/defibrillation (~5 minutes). No intubation or ventilation. Family willing to attempt central line and pressors for 1-2 days if needed. will need rehab post-d/c -very, very weak - SNF level hopefully can stop airborne isolation tomorrow Admission and Anticipated Discharge Date Admission Date: April 23, 2022 Subjective ruth removed this am unfortunately unable to void over 6-8+ hours bladder scan 1000cc ruth placed back -- 600cc immediately obtained during the visit he offered no complaints states his family came to visit today he mentions he watched the [place] on TV today knows he is in the hospital, and did state [employer] today 2021 for year still uncertain about why he is here no events overnight per staff eating fair Review of Systems Review of Systems: gen - no fevers, some weakness cv - no cp, no orthopnea pulm - no dyspnea; mild cough GI - no abdominal pain Physical Exam Physical Exam: gen - awake, alert, most oriented he has been all weak; NAD mouth - MM dry, no thrush neck - no JVD heart - RRR, s1 s2, no murmur lungs - scant crackles bases b/l, no wheeze, airation wnl abd - soft NT ND BS+ ext - thin, pulses 2+ b/l, no edema Results & Data Results & Data ([facility]) Vital Signs (Past 12 Hours) Vital Signs Temp Pulse Resp BP Pulse Ox O2 Del Method 05/03/22 20:10 36.4 C L 91 H 18 110/61 90 Room Air 05/03/22 17:30 80 18 102/57 L 94 Room Air 05/03/22 11:00 Room Air PG Care Time/CCT Total # of Minutes Spent Total Time Spent with Patient: Total time spent is greater than 50% in coordination of care (as documented) at patient's floor/unit and/or counseling patient: Coding Level of Care Code 72228 Subseq Hosp Care Lvl 2 Diagnoses Squamous cell lung cancer C34.90 Pancytopenia due to antineoplastic chemotherapy D61.810; T45.1X5A Acute renal failure N17.9 Paraphimosis N47.2 Hypotension I95.9 Pneumonia J18.9 Fecal impaction K56.41 Pathologic fracture M84.40XA Severe protein-calorie malnutrition E43 COVID U07.1 Sacral decubitus ulcer L89.159 Generalized weakness R53.1 DVT prophylaxis Z29.9 Toxic encephalopathy G92.9 COPD (chronic obstructive pulmonary disease) J44.9 Urinary retention R33.9
[2022-05-03] MEDS: risperiDONE 0.5 MG TABLET PO SCH (21:56)
[2022-05-03] MEDS: TAMSULOSIN HCL 0.4 MG CAP PO SCH (21:56)
[2022-05-04] MEDS: POLYETHYLENE (MIRALAX) 17 GM PACK PO SCH (08:53)
[2022-05-04] MEDS: ENOXAPARIN INJ 40 MG/0.4 ML SYR SQ SCH (08:53)
[2022-05-04] MEDS: FOLIC ACID 1 MG TAB PO SCH (08:54)
[2022-05-04] MEDS: dexAMETHasone 4 MG TAB PO SCH (08:54)
[2022-05-04] MEDS: SENNA 8.6 MG TAB PO SCH (08:54)
[2022-05-04] MEDS: UMECLIDINIUM/VILANTEROL 62.5/25MCG 7 PUFFS/INHALER INH SCH (08:54)
[2022-05-04] MEDS: PANTOprazole 40 MG TAB PO SCH (08:54)
--- NOTE | 2022-05-04 17:23 | XRay Report ---
XR chest 1V portable CLINICAL HISTORY: hypoxia, known lung ca, eval new infiltrates. COMPARISON STUDY: 04/23/2022 TECHNIQUE: 1 view of the chest FINDINGS: Single frontal view of the chest demonstrates interval almost complete atelectasis/collapse involving the left lung with shift of the heart and mediastinal structures to the left. Previously identified large left hilar mass is obscured by the collapsed lung. The right hemithorax remains clear. There is no evidence for right-sided pleural effusion. There is n o evidence for vascular congestion. There is no acute osseous pathology. IMPRESSION: 1. Interval development of atelectasis/collapse involving almost entire left lung with shift of the h eart mediastinum to the left. 2. Right hemithorax remains clear. ACT 112: Negative or not required by law. Electronically signed by: Jigar Mccarty M.D. 05/04/2022 5:21 PM
[2022-05-04] MEDS ORDERED: ALBUT/IPRATROP 3MG/0.5MG NEB 3 ML VIAL NEB SCH (19:58)
[2022-05-04] MEDS ORDERED: ALBUT/IPRATROP 3MG/0.5MG NEB 3 ML VIAL ONE (20:01)
[2022-05-04] MEDS: SODIUM CHLOR 7% 4 ML NEB NEB SCH (20:13)
[2022-05-04] MEDS: ACETYLCYSTEINE 20% INHAL SOLN 4ML ***DISPENSED BY RESP. INH SCH (20:13)
--- NOTE | 2022-05-04 20:24 | Hospitalist Progress Note ---
Date of Service May 04, 2022 Assessment & Plan (1) Squamous cell lung cancer: Plan: Diagnosed in 02/2022 in the left lung. Stage 4 - mets to the liver, brain, lymph nodes, and now with recent evidence of mets to the bones on CT chest 04/22. s/p brain radiation & one dose of carboplatin/paclitaxel/pembrolizumab on 04/06/2022. Since starting chemotherapy, has had significant failure to thrive, weight loss, low appetite, and now here with anemia and thrombocytopenia secondary to antineoplastic therapy. Has required transfusional support throughout the stay. Failure to thrive has been severe but eating has improved this week with use of steroids. CT head obtained this week due to confusion and known h/o brain mets. No new brain mets or CVA or ICH seen. Today developed complete collapse of left lung. I notified Dr Rollins, pulmonary, who will consult. Chest PT, cough assist device, lay on right side when in bed, other pulmonary toilet. CT chest as above. May need bronch tomorrow by Dr Rollins. The cancer itself likely has caused obstruction; mucous plugging also possible. Fortunately remains stable on NC O2 despite the above. (2) Pancytopenia due to antineoplastic chemotherapy: Plan: s/p 3 units of PRBCs while here. Low platelets resolved. B12 level wnl. Folate is low-normal - giving folic acid 1mg Daily. WBC count is satisfactory. H/H low but stable/acceptable. Check cbc in am. (3) Acute renal failure: Plan: resolved pre-renal (4) Paraphimosis: Plan: Developed such on 04/25/22. [facility] [place] Urology consulted with successful reduction. Tried to d/c ruth 05/03 -- failed voiding trial, ruth placed back. Started flomax 0.4mg daily 05/03. (5) Hypotension: Plan: Resolved noted that recent cortisol level was wnl (6) Pneumonia: Plan: LLL. completed 7+ days of IV Unasyn for postobstructive pneumonia. clinically resolved. (7) Fecal impaction: Plan: resolved. reports chronic, somewhat severe constipation. cont daily bowel regimen - senna + miralax. (8) Pathologic fracture: Plan: Right distal clavicle. Ideally should be in sling for such but no pain reported by him and minimal, if any, deformity noted on exam. follow. (9) Severe protein-calorie malnutrition: Plan: 2nd to advanced cancer, ?COVID, etc. Cont remeron. Cont dexamethasone 4mg daily - should help breathing, appetite, and bone pain. (10) COVID: Plan: Tested + on home test in early March by report. Cannot exclude that this is a new infection since March, but also possible that the PCR test is simply positive due to the prior infection. Either way continue isolation per IC officer recs. Can d/c isolation on Wednesday per IC officer. I do not believe today's event (collapse left lung) is from COVID -- this is due to his cancer and/or mucous plugging. (11) Sacral decubitus ulcer: Plan: Wound care consulted Offload pressure (12) Generalized weakness: Plan: Multifactorial PT,OT when able (13) DVT prophylaxis: Plan: Lovenox 40 mg daily. (14) Toxic encephalopathy: Plan: 2nd marinol - resolved also with mild hospital psychosis Cont risperdal 0.25mg HS - this has helped with mentation overall (15) COPD (chronic obstructive pulmonary disease): Plan: with exacerbation -- had improved but now with left lung collapse as above day #5 dexamethasone inhalers / etc (16) Urinary retention: Plan: failed voiding trial 05/03 ruth placed back started flomax 0.4mg daily will need urology f/u post-d/c Plan updated at bedside today Prior attending discussed with family and patient -- patient willing to have 1 round of CPR/defibrillation (~5 minutes). No intubation or ventilation. Family willing to attempt central line and pressors for 1-2 days if needed. will need rehab post-d/c -very, very weak - SNF level recommended hopefully can stop airborne isolation soon Admission and Anticipated Discharge Date Admission Date: April 23, 2022 Subjective apparently patient was working with PT this afternoon he had acute dyspnea with PT and o2 sats were checked - low 70s in room air 6 L NC O2 applied I came to bedside - resting comfortably in bed on NC O2 no distress at bedside he states he "feels ok" denies cough denies dyspnea states he ate fair at mealtime Review of Systems Review of Systems: gen - weak, fatigued cv - reports he had mild "chest pain" last night but he denied that to me yesterday pulm - no dyspnea at rest but had severe dyspnea with exertion today GI - no vomiting or nausea or pain Physical Exam Physical Exam: gen - awake, alert, comfortable, cachectic in appearance mouth - MM dry, no thrush neck - no JVD heart - RRR, s1 s2, no murmur lungs - poor airation/decreased BS entire left hemithorax, clear on right, no crackles or wheeze abd - soft NT ND BS+ ext - thin, pulses 2+ b/l, no edema Results & Data Results & Data ([facility]) Vital Signs (Past 12 Hours) Vital Signs Temp Pulse Resp BP Pulse Ox O2 Del Method O2 Flow Rate 05/04/22 20:05 81 21 98 Nasal Cannula 6 05/04/22 12:19 36.3 C L 75 22 126/64 92 Nasal Cannula 6 05/04/22 11:20 71 L 05/04/22 09:02 Room Air Diagnostic Findings Chest X-Ray 05/04/22 16:55 XR chest 1V portable CLINICAL HISTORY: hypoxia, known lung ca, eval new infiltrates. COMPARISON STUDY: 04/23/2022 TECHNIQUE: 1 view of the chest FINDINGS: Single frontal view of the chest demonstrates interval almost complete atelectasis/collapse involving the left lung with shift of the heart and mediastinal structures to the left. Previously identified large left hilar mass is obscured by the collapsed lung. The right hemithorax remains clear. There is no evidence for right-sided pleural effusion. There is no evidence for vascular congestion. There is no acute osseous pathology. IMPRESSION: 1. Interval development of atelectasis/collapse involving almost entire left lung with shift of the heart mediastinum to the left. 2. Right hemithorax remains clear. ACT 112: Negative or not required by law. Electronically signed by: Jigar Mccarty M.D. 05/04/2022 5:[address] 05/04/22 18:42 CT chest diagnostic wo con CT DOSE: 220.94 mGy.cm CLINICAL HISTORY: 76 years-old Male with Left lung collapse. Acute shortness of breath with left lung collapse TECHNIQUE: Multiaxial CT images of the chest were performed without contrast. A dose lowering technique was utilized adhering to the principles of ALARA. COMPARISON: Chest radiograph of same day, chest CT 04/22/2022 FINDINGS: No thyroid nodule. Unchanged mediastinal lymphadenopathy. The heart is upper limits of normal in size. Trace pericardial effusion. Extensive coronary artery calcifications. No thoracic aortic aneurysm. Small pleural effusions have increased in size from the prior study. Mild pulmonary emphysema. No pneumothorax. Compensatory hyperinflation of the right lung. Right basilar predominant opacities are suggestive of atelectasis. Subpleural reticulation within the right lung is suggestive of fibrotic scarring. The large cavitary mass in the left lower lobe encasing the adjacent bronchovascular structures and crossing the major fissure as described on the prior study is redemonstrated however is partially obscured by near complete collapse of the left lung. There is only minimal aerated left upper lobe noted anteriorly and a small portion of aerated left lower lobe. Hyperdense foci versus calcifications within left lower lobe are redemonstrated which may represent prior aspiration. Leftward mediastin al shift. Prominent mucous plugging of the left lower lobe bronchi. Obscuration of the previously described satellite lesions within the left lung. Partially imaged suggested cyst of the superior pole right kidney measures up to approximately 7.7 cm. Multifocal osteolytic metastatic disease. Probable pathologic fracture of the distal right clavicle. Destructive osteolytic lesion of the posterior right third rib. IMPRESSION: 1. The large cavitary mass of the left lower lobe is mostly obscured secondary to near complete collapse of the left lung. Additionally, there is a prominent mucous plugging opacifying the left lung bronchi. 2. Increased size of the small pleural effusions. 3. Pulmonary emphysema. 4. Unchanged mediastinal lymphadenopathy. 5. Multifocal osteolytic metastatic disease is redemonstrated along with bony destruction of the posterior right third rib and probable acute pathologic fracture of the distal right clavicle. ACT 112: Negative or not required by law. Electronically signed by: Karthik Crawford M.D. 05/05/2022 7:14 AM PG Care Time/CCT Total # of Minutes Spent Total Time Spent with Patient: Total time spent is greater than 50% in coordination of care (as documented) at patient's floor/unit and/or counseling patient: Coding Level of Care Code 71791 Subseq Hosp Care Lvl 3 Diagnoses Squamous cell lung cancer C34.90 Pancytopenia due to antineoplastic chemotherapy D61.810; T45.1X5A Acute renal failure N17.9 Paraphimosis N47.2 Hypotension I95.9 Pneumonia J18.9 Fecal impaction K56.41 Pathologic fracture M84.40XA Severe protein-calorie malnutrition E43 COVID U07.1 Sacral decubitus ulcer L89.159 Generalized weakness R53.1 DVT prophylaxis Z29.9 Toxic encephalopathy G92.9 COPD (chronic obstructive pulmonary disease) J44.9 Urinary retention R33.9
[2022-05-04] MEDS: MIRTAZAPINE TAB 15 MG TAB PO SCH (21:45)
[2022-05-04] MEDS: risperiDONE 0.5 MG TABLET PO SCH (21:45)
[2022-05-04] MEDS: TAMSULOSIN HCL 0.4 MG CAP PO SCH (21:45)
--- NOTE | 2022-05-05 07:16 | CT Scan Report ---
CT chest diagnostic wo con CT DOSE: 220.94 mGy.cm CLINICAL HISTORY: 76 years-old Male with Left lung collapse. Acute shortness of breath with left cosme g collapse TECHNIQUE: Multiaxial CT images of the chest were performed without contrast. A dose lowering techni que was utilized adhering to the principles of ALARA. COMPARISON: Chest radiograph of same day, chest CT 04/22/2022 FINDINGS: No thyroid nodule. Unchanged mediastinal lymphadenopathy. The heart is upper limits of norm al in size. Trace pericardial effusion. Extensive coronary artery calcifications. No thoracic aortic aneurysm. Small pleural effusions have increased in size from the prior study. Mild pulmonary emphyse ma. No pneumothorax. Compensatory hyperinflation of the right lung. Right basilar predominant opaciti es are suggestive of atelectasis. Subpleural reticulation within the right lung is suggestive of fibr otic scarring. The large cavitary mass in the left lower lobe encasing the adjacent bronchovascular s tructures and crossing the major fissure as described on the prior study is redemonstrated however is partially obscured by near complete collapse of the left lung. There is only minimal aerated left up per lobe noted anteriorly and a small portion of aerated left lower lobe. Hyperdense foci versus calc ifications within left lower lobe are redemonstrated which may represent prior aspiration. Leftward m ediastinal shift. Prominent mucous plugging of the left lower lobe bronchi. Obscuration of the previo usly described satellite lesions within the left lung. Partially imaged suggested cyst of the superior pole right kidney measures up to approximately 7.7 cm . Multifocal osteolytic metastatic disease. Probable pathologic fracture of the distal right clavicle . Destructive osteolytic lesion of the posterior right third rib. IMPRESSION: 1. The large cavitary mass of the left lower lobe is mostly obscured secondary to near complete colla pse of the left lung. Additionally, there is a prominent mucous plugging opacifying the left lung bro nchi. 2. Increased size of the small pleural effusions. 3. Pulmonary emphysema. 4. Unchanged mediastinal lymphadenopathy. 5. Multifocal osteolytic metastatic disease is redemonstrated along with bony destruction of the post erior right third rib and probable acute pathologic fracture of the distal right clavicle. ACT 112: Negative or not required by law. Electronically signed by: Karthik Crawford M.D. 05/05/2022 7:14 AM
[2022-05-05] MEDS: SODIUM CHLOR 7% 4 ML NEB NEB SCH ×2 (07:42→19:27)
[2022-05-05] MEDS: ALBUT/IPRATROP 3MG/0.5MG NEB 3 ML VIAL NEB SCH ×2 (07:42→19:26)
[2022-05-05] MEDS: ACETYLCYSTEINE 20% INHAL SOLN 4ML ***DISPENSED BY RESP. INH SCH ×2 (07:43→19:27)
[2022-05-05 08:41] LABS: Basophils # (auto) 0.03 K/uL (0-0.2); Basophils % (auto) 0.2 %; Hematocrit (blood only) 28.5 % (40.1-51.0); Hemoglobin 9.3 g/dl (14.0-18.0); Immature Granulocytes # (auto) 0.16 K/uL (0.00-0.02); Immature Granulocytes % (auto) 1.3 %; Lymphocytes # (auto) 3.04 K/uL (1.2-3.4); Lymphocytes % (auto) 23.9 %; Mean Corpuscular Hemoglobin 28.9 pg (25.0-34.0); Mean Corpuscular Hgb Conc 32.6 g/dL (32.0-36.0); Mean Corpuscular Volume 88.5 fL (80.0-100.0); Mean Platelet Volume 9.6 fL (9.4-12.4); Monocytes # (auto) 1.18 K/uL (0.24-0.82); Monocytes % (auto) 9.3 %; Neutrophils # (auto) 8.32 K/uL (1.4-6.5); Neutrophils % (auto) 65.3 %; Platelet Count 279 K/uL (130-400); RDW Coefficient of Variation 21.1 % (11.5-14.5); RDW Standard Deviation 64.5 fL (36.4-46.3); Red Blood Count 3.22 M/uL (4.63-6.08); White Blood Count 12.73 K/ul (4.8-10.8)
[2022-05-05 08:59] LABS: BUN Creatinine Ratio 17.6 (10-20); Calcium 8.4 mg/dl (8.5-10.1); Est GFR (African American) 106.8 ml/min; Est GFR (Non-African American) 92.1 ml/min; Magnesium 1.4 mg/dl (1.7-2.4); Potassium 3.5 mmol/L (3.5-5.1)
--- NOTE | 2022-05-05 09:01 | Pulmonary Consultation ---
Date of Consultation May 05, 2022 Assessment & Plan (1) Urinary retention: (2) Toxic encephalopathy: (3) Squamous cell lung cancer: (4) COVID: (5) Acute on chronic respiratory failure with hypoxemia: (6) Lung collapse: Plan CT scan 05/04/2022 personally reviewed: Centrilobular emphysema appreciated There is mucous plugging of the left main resulting in total collapse of the left lung Significant mediastinal lymphadenopathy which is unchanged. --Left lung collapse Likely from mucous plugging Continue with Mucomyst and hypertonic saline Continue with CoughAssist --Stage IV squamous cell carcinoma of the lung With mets to the brain Following up with oncology --COPD with chronic bronchitis Gold class B/C Continue with Anoro PFTs 11/11/2021: Moderate COPD, insignificant bronchodilator response, moderate decrease in DLCO which does not correct for VA FVC 3.91 L 92%, FEV1 2.4 L 77%, FEV1/FVC 63%, RV 102%, TLC 93%, RV/TLC 107%, DLCO 42%, DLCO/VA 53% Plan: For bronchoscopy today I called Mrs. Almanza [phone]. Risk and benefit of the procedure were explained to her. She understands and agrees to go ahead with the procedure for her . Case discussed with Dr Chen Please note the above document was generated using voice recognition software. It may contain grammatical, syntax or spelling errors.Any formal questions or concerns about the content, text or information contained within the body of this dictation should be directly addressed to the provider for clarification. History of Present Illness Attending Physician: Kristin Chen MD History of Present Illness 76-year-old male presented to hospital for shortness of breath was found to have Covid-19 Past medical history: GERD, DLP, stage IV squamous cell carcinoma diagnosed January 2022 Patient was last seen by me in the office on 02/03/2022 Pulmonary consulted because of left lung collapse appreciated on the chest x-ray 05/04/2022 At the time of examination patient was saturating 92-93% on 6 L oxygen mask He was complaining of cough but was not able to bring up any phlegm. Chest x-ray from today did show mild improvement but still almost total collapse of the left lung Denied any headache, no nausea vomiting Has been afebrile. Denies any hemoptysis. Social history: [id number] smoking history, quit in 1987, social alcohol, denies any illicit drug use. Used to work in a metal factory. Exposure to chemicals and fumes. Did not use mask at the time [place] Pets: Has a dog at home. No birds or poultry nearby Allergies: Denies Asthma: No personal or family history of asthma Lung cancer: No history of lung cancer in the family Allergies Allergy/AdvReac Type Severity Reaction Status Date / Time Penicillins Allergy Unknown RXN Verified 04/03/22 13:12 UNKNOWN PER PT Home Medications Medication Instructions Recorded Confirmed Type multivitamin 1 tab PO QAM 11/26/21 04/23/22 History omega 5-mdh-yke-fish oil 1,000 mg 1 cap PO QAM 11/26/21 04/23/22 History (120 mg-180 mg) capsule (Fish Oil) Flutter Valve #1 ea 12/03/21 03/11/22 Rx albuterol sulfate 90 mcg/actuation 2 puff inhalation Q6H PRN 12/03/21 04/23/22 Rx aerosol inhaler Shortness Of Breath Or Wheezing #18 grams mirtazapine 15 mg tablet (Remeron) 15 mg PO QAM 04/03/22 04/23/22 History fluconazole 100 mg tablet 100 mg PO DAILY@1500 04/23/22 04/23/22 History (Diflucan) pembrolizumab 25 mg/mL intravenous 0 mg IV UD 04/23/22 04/23/22 History solution (Keytruda) umeclidinium 62.5 mcg-vilanterol 1 inh inhalation QAM 04/23/22 04/23/22 History 25 mcg/actuation powdr for inhalation (Anoro Ellipta) Patient History Medical History (Updated 05/05/22 @ 17:50 by Ariadna Rollins MD) Abnormal chest CT Cavitary pneumonia Chronic bronchitis COPD (chronic obstructive pulmonary disease) Elevated cholesterol Ex-smoker Exertional shortness of breath Lyme disease Pathologic fracture Pneumonia Rapid atrial fibrillation Severe protein-calorie malnutrition Surgical History History of right hip replacement S/P bronchoscopy S/P left rotator cuff repair Status post right knee replacement Family History Brother Cancer Several brothers with cancer dx Father Cancer Mother Myocardial infarction Social History Smoking Status: Current some day smoker Hx Alcohol Use: Yes Hx Substance Use: No Preferred Language: Tajik Communication Ability: Effective Visual Impairment: No Limitations Hearing Ability: Hard of Hearing Small Products I Assembler Required: No Beliefs That Will Affect Care: Hinduism marital status: Current Living Situation: Spouse current occupational status: retired Feels Safe at Home: No Is there a partner from a previous relationship who is making you feel unsafe now?: No caffeine: Yes Physical Activity Frequency: Does not Exercise Assistive Devices: Raised Toilet Seat, Walker and Wheelchair Review of Systems Review of Systems: All systems reviewed & are unremarkable except as noted in HPI & below Physical Exam Physical Exam: Constitutional: No acute distress, frail-appearing HEENT: EOMI, PERRLA Respiratory system: Decreased air entry in the left side, positive crackles left side, no wheeze, no rhonchi CVS: S1-S2 positive, no murmurs or gallops Abdomen: Soft, nontender, nondistended, positive bowel sounds x4 Extremities: +2 pulses bilaterally radialis/ dorsalis pedis, no cyanosis, no edema Neuro: Awake alert oriented to self Psych: Normal mood and affect G/U: Positive Tucker Skin: no rashes, warm and dry Lymphatic: no cervical or axillary lymphadenopathy Results & Data Results & Data ([facility]) Vital Signs (Past 12 Hours) Vital Signs Temp Pulse Resp BP Pulse Ox O2 Del Method O2 Flow Rate 05/05/22 03:22 92 Nasal Cannula 6 05/04/22 23:52 36.6 C 95 H 20 105/68 91 Nasal Cannula 6 05/04/22 21:00 Nasal Cannula 6 05/04/22 21:30 98 H 20 98/62 L 91 Nasal Cannula 6 05/04/22 20:05 81 21 98 Nasal Cannula 6 Laboratory Results 05/05/22 08:20 05/05/22 08:20 PG Care Time/CCT Total # of Minutes Spent Total Time Spent with Patient: Total time spent is greater than 50% in coordination of care (as documented) at patient's floor/unit and/or counseling patient: Coding Level of Care Code 63835 Initial Inpt Care Lvl 3 Diagnoses Urinary retention R33.9 Toxic encephalopathy G92.9 Squamous cell lung cancer C34.90 COVID U07.1 Acute on chronic respiratory failure with hypoxemia J96.21 Lung collapse J98.19
[2022-05-05 09:07] LABS: Anisocytosis Present
[2022-05-05] MEDS: POLYETHYLENE (MIRALAX) 17 GM PACK PO SCH (09:12)
[2022-05-05] MEDS: PANTOprazole 40 MG TAB PO SCH (09:13)
[2022-05-05] MEDS: dexAMETHasone 4 MG TAB PO SCH (09:13)
[2022-05-05] MEDS: FOLIC ACID 1 MG TAB PO SCH (09:13)
[2022-05-05] MEDS: SENNA 8.6 MG TAB PO SCH (09:14)
[2022-05-05] MEDS: UMECLIDINIUM/VILANTEROL 62.5/25MCG 7 PUFFS/INHALER INH SCH (09:15)
--- NOTE | 2022-05-05 09:53 | XRay Report ---
XR chest 1V portable CLINICAL HISTORY: Lung cancer. Follow-up study. COMPARISON STUDY: Chest radiograph and chest CT May 04, 2022. FINDINGS: There is no pneumothorax. Near complete opacification of the left lung with volume loss has slightly improved. Small bilateral pleural effusions are better depicted on prior chest CT. There is no pneumothorax. No evidence for pulmonary edema. Minimal right basilar opacity is unchanged. Multip le skeletal lesions are better depicted on CT as well. IMPRESSION: 1. Near complete opacification of the left lung with volume loss. Slight improvement in left lung aer ation. 2. Small bilateral pleural effusions and minimal right basilar opacity. 3. No pneumothorax. ACT 112: Negative or not required by law. Electronically signed by: Chemo Hernandes M.D. 05/05/2022 9:52 AM
[2022-05-05] MEDS: MAGNESIUM SULFATE / D5W 1 GM/100 ML BAG IV SCH ×2 (10:20→13:50)
[2022-05-05] MEDS ORDERED: MIDAZOLAM HCL 5 MG/ML 1 ML VIAL ONE (12:08)
[2022-05-05] MEDS ORDERED: fentaNYL citrate 100 MCG/2 ML VIAL ONE (12:09)
--- NOTE | 2022-05-05 12:31 | Pre Anesthesia Assessment ---
Date of Service May 05, 2022 Pre Sedation Assessment Vital Signs Temp Pulse Pulse Resp BP Pulse Ox O2 Del Method 05/05/22 11:06 Oxymask 05/05/22 10:50 24 05/05/22 10:38 36.3 C L 109 H 30 H 93/53 L 93 Oxymask 05/05/22 09:51 36.8 C 95 H 20 110/68 94 Oxymask 05/05/22 08:00 Oxymask 05/05/22 07:43 95 H 20 Room Air 05/05/22 03:22 92 Nasal Cannula 05/04/22 23:52 36.6 C 95 H 20 105/68 91 Nasal Cannula 05/04/22 21:00 Nasal Cannula 05/04/22 21:30 98 H 20 98/62 L 91 Nasal Cannula 05/04/22 20:05 81 21 98 Nasal Cannula O2 Flow Rate 05/05/22 11:06 6 05/05/22 10:50 05/05/22 10:38 6 05/05/22 09:51 6 05/05/22 08:00 6 05/05/22 07:43 05/05/22 03:22 6 05/04/22 23:52 6 05/04/22 21:00 6 05/04/22 21:30 6 05/04/22 20:05 6 Pre-Sedation Airway Assessment Smoking Status: Current some day smoker Hx Sleep Apnea: No Short, Thick Neck: Yes Thyromental Distance: > or= 3.5 Finger Breadths Oral Cavity: + Dental Abnormalities Mallampati Class: II ASA: ASA3 NPO Status Date of Last Intake of Fluids: 05/05/22 Time of Last Intake of Fluids: 08:00 Last Oral Intake of Fluids Comment: sips with medication only Date of Last Intake of Solid Food: 05/05/22 Time of Last Intake of Solid Foods: 00:00 Last Intake of Solids Comment: atleast since midnight Procedure Planning Contraindications for Sedation: none Current Medications Reviewed: Yes Notes The planned sedation has been discussed with the patient. Informed Consent was obtained. I have identified the patient, determined the appropriateness of sedation and have assessed the patient immediately prior to the procedure. All medicine(s) and interventions are by my order.
--- NOTE | 2022-05-05 12:53 | Post Anesthesia Assessment ---
Date of Service May 05, 2022 Post Sedation Assessment Vital Signs Temp Pulse Pulse Pulse Resp BP Pulse Ox 05/05/22 12:50 123 H 22 98/58 L 96 05/05/22 12:45 122 H 22 71/62 L 96 05/05/22 12:40 122 H 22 115/62 96 05/05/22 12:35 118 H 22 103/61 94 05/05/22 11:06 05/05/22 10:50 24 05/05/22 10:38 36.3 C L 109 H 30 H 93/53 L 93 05/05/22 09:51 36.8 C 95 H 20 110/68 94 05/05/22 08:00 05/05/22 07:43 95 H 20 05/05/22 03:22 92 05/04/22 23:52 36.6 C 95 H 20 105/68 91 05/04/22 21:00 05/04/22 21:30 98 H 20 98/62 L 91 05/04/22 20:05 81 21 98 O2 Del Method O2 Flow Rate 05/05/22 12:50 Oxymask 15 05/05/22 12:45 Oxymask 15 05/05/22 12:40 Oxymask 15 05/05/22 12:35 Oxymask 10 05/05/22 11:06 Oxymask 6 05/05/22 10:50 05/05/22 10:38 Oxymask 6 05/05/22 09:51 Oxymask 6 05/05/22 08:00 Oxymask 6 05/05/22 07:43 Room Air 05/05/22 03:22 Nasal Cannula 6 05/04/22 23:52 Nasal Cannula 6 05/04/22 21:00 Nasal Cannula 6 05/04/22 21:30 Nasal Cannula 6 05/04/22 20:05 Nasal Cannula 6 Discharge Sedation Level of Care: Fast Track Phase II Post Sedation Plan On clinical assessment, the patient appears to have tolerated the sedation without complications. Patient is recovering as anticipated. Patient will continue to be monitored by nursing and may be discharged when sedation discharge criteria are met per below protocol. Upon Completions of procedure up to 15 minutes continue every 5 minute vital signs and the P.A.R. score; then discharge to a Phase I or Fast Track to Phase II per the following guidelines: * Discharge Patient to appropriate Phase II area if PAR is 8 or greater or return to pre- procedure baseline. The post - procedure orders will be as directed. * If PAR score is less than 8 or not return to pre-procedure baseline then patient will follow Phase I monitoring till PAR is reached for Phase II. The Phase I may be done in procedure room or may call to secure a Phase I area. * If naloxone or flumazenil are used for reversal, hold in Phase I for continued monitoring from when last reversal dose was given for a minimum of 60 minutes or longer pending the nurse and/or physician discretion of patient condition before discharge to Phase II. Please call the Sedation Physician to re-evaluate and complete post-note for discharge to Phase II area. Do NOT discharge from procedure sedation or Phase 1 until post- sedation evaluation note is complete by procedure /sedation MD Sedation Discharge Instructions to be given to the patient at discharge to home.
--- NOTE | 2022-05-05 12:54 | Procedure Note ---
Procedure Note: Bronchoscopy Procedure PREOPERATIVE DIAGNOSIS: Left lung collapse POSTOPERATIVE DIAGNOSIS: Left lung collapse PROCEDURE PERFORMED: Flexible fiberoptic bronchoscopy with bronchial wash COMPLICATIONS: None. INDICATION: Left lung collapse to clear mucous plugging PROCEDURE: After obtaining an informed consent, the patient was brought to the Bronchoscopy Suite. The patient had appropriate oxygen, blood pressure, heart rate, and respiratory rate monitoring applied and monitored continuously throughout the procedure. Supplemental oxygen via nasal cannula as per nursing records was applied to the nasopharynx with adequate saturations achieved. Topical anesthesia with nebulized 1% lidocaine was achieved. Subsequent to this, the patient was premedicated with 1 mg of midazolam and 25 mcg of fentanyl. Upper Airway: The oropharynx and larynx were well visualized and showed mild erythema, otherwise negative. Significant amount of thick secretion was appreciated at the vallecula which were suctioned out There was normal vocal cord motion without masses or lesions. Additional topical anesthesia with 1% lidocaine was applied to the trachea and keshawn. The trachea appeared normal.The bronchoscope was then advanced through the keshawn, which was sharp. The scope was then advanced into the right main stem and each segment, subsegement in the right upper lobe, right middle lobe and right lower lobe were visualized. There was minimal amount of clear secretion which was suctioned out. There were no other findings including evidence of mass, anatomic distortions, or hemorrhage. The bronchoscope was subsequently withdrawn and advanced into the left mainstem. Large greenish-yellow mucous plug was appreciated left main with mucus dripping over into the right side. Mucomyst was instilled into the mucous and it was successfully suctioned out. Each segment and subsegment of the left upper lobe was able to be visualized after suctioning the mucus. Large fungating, easily bruising mass was appreciated at the entrance of the left lower lobe. It was very friable and bled even on suctioning the mucus around it. Cold saline was used to stop the bleeding. The bronchoscope was then withdrawn to the mainstem. The area was suctioned clear. The bronchoscope was then withdrawn. The patient tolerated the procedure well without evidence of desaturation or complications. Bronchoalveolar lavage samples were sent for cell count, Gram stain and bacteria l culture, AFB culture and smear, fungal culture and smear. Recommendations: Follow-up chest x-ray Follow-up micro Please note the above document was generated using voice recognition software. It may contain grammatical, syntax or spelling errors.Any formal questions or concerns about the content, text or information contained within the body of this dictation should be directly addressed to the provider for clarification. [facility] [place] Codes (Charges) Pulmonary/Thoracic Procedure 1: Pulmonary and Thoracic: 08095 Bronchoscopy, clear airways Procedure 2: Pulmonary and Thoracic: 50865 Dx bronchoscopy/wash Sedation/Anesthesia Procedure 1: Sedation/Anesthesia: 79496 Mod Sedation by the same physician;Init15 Min Child Age 5 & Up Total Sedation Time (minutes): 17 Procedure 2: Sedation/Anesthesia: 86739 Mod Sedation by the same physician; Ea [id number] Minutes Total Sedation Time (minutes): 17
--- NOTE | 2022-05-05 13:22 | XRay Report ---
XR chest 1V portable at 1:11 PM CLINICAL HISTORY: s/p bronchoscopy mucus pluggin. COMPARISON STUDY: 05/05/2022 at 8:32 AM TECHNIQUE: 1 view of the chest FINDINGS: Single frontal view of the chest demonstrates the cardiomediastinal silhouette to be within normal li mits. There has been interval bronchoscopy with removal of mucous plugging and marked reaeration of t he left hemithorax. There is still left lower lobe atelectasis/collapse. Large left hilar mass is aga in seen. There is minimal right basilar atelectasis. The right hemithorax is otherwise clear. There is no evid ence for vascular congestion. There is no acute osseous pathology. IMPRESSION: 1. Status post bronchoscopy with reexpansion of the majority of the left lung. There is still left lo wer lobe atelectasis/collapse with large left hilar mass again seen. 2. Minimal right basilar atelectasis also present. 3. No evidence for pneumothorax. ACT 112: Negative or not required by law. Electronically signed by: Jigar Mccarty M.D. 05/05/2022 1:21 PM
[2022-05-05] MEDS ORDERED: SODIUM CHLORIDE 0.9% 1000ML 500 ML IV ONE ×4 (14:11→20:08)
--- NOTE | 2022-05-05 14:16 | Hospitalist Progress Note ---
Date of Service May 05, 2022 Assessment & Plan (1) Squamous cell lung cancer: Plan: Diagnosed in 02/2022 in the left lung. Stage 4 - mets to the liver, brain, lymph nodes, and now with recent evidence of mets to the bones on CT chest 04/22. s/p brain radiation & one dose of carboplatin/paclitaxel/pembrolizumab on 04/06/2022. Since starting chemotherapy, has had significant failure to thrive, weight loss, low appetite, and now here with anemia and thrombocytopenia secondary to antineoplastic therapy. Has required transfusional support throughout the stay. Failure to thrive has been severe but eating has improved this week with use of steroids. CT head obtained this week due to confusion and known h/o brain mets. No new brain mets or CVA or ICH seen. Developed complete collapse of left lung on 05/04, was acutely requiring 6L O2. Appreciate pulmonary consult-now s/p bronch with mucus plugging removed, lung re-expanded Continue Chest PT, cough assist device, lay on right side when in bed, other pulmonary toilet. -continue supplemental O2 as needed and wean off to keep POx> 90% -follow CXR (2) Rapid atrial fibrillation: Plan: developed ROSENDO with rates in 160s s/p bronchoscopy on 05/05, with soft BPs although he always runs a little low on BPs new onset for him but has not been on tele so hard to say when started -transfer to PCU -give IV lopressor 2.5mg IV x 1 now and reassess -give bolus 500mL NS x 1 now -consult Cardiology -check ECHO but wait till rate better controlled-perhaps tomorrow -replaced 2 grams IV mag this AM but will give another 1 gram now -give potassium 20 meq IV x 1 now (3) Pancytopenia due to antineoplastic chemotherapy: Plan: s/p 3 units of PRBCs while here. Low platelets resolved. B12 level wnl. Folate is low-normal - giving folic acid 1mg Daily. WBC count is satisfactory. H/H low but stable/acceptable. Check cbc in am. (4) Acute renal failure: Plan: resolved pre-renal (5) Paraphimosis: Plan: Developed such on 04/25/22. [facility] [place] Urology consulted with successful reduction. Tried to d/c ruth 05/03 -- failed voiding trial, ruth placed back. Started flomax 0.4mg daily 05/03. (6) Hypotension: Plan: Resolved noted that recent cortisol level was wnl (7) Pneumonia: Plan: LLL. completed 7+ days of IV Unasyn for postobstructive pneumonia. clinically resolved. (8) Fecal impaction: Plan: resolved, then had severe diarrhea x 24 hrs which then resolved reports chronic, somewhat severe constipation. cont daily bowel regimen - senna + miralax. (9) Pathologic fracture: Plan: Right distal clavicle. Ideally should be in sling for such but no pain reported by him and minimal, if any, deformity noted on exam. follow. Also now having neck pain which does seem MSK in nature--> check CT neck once rapid afib stabilized continue tylenol prn pain (10) Severe protein-calorie malnutrition: Plan: 2nd to advanced cancer, ?COVID, etc. Cont remeron. Had delirium with trial of Marinol which was then stopped Cont dexamethasone 4mg daily - should help breathing, appetite, and bone pain. (11) COVID: Plan: Tested + on home test in early March by report. Cannot exclude that this is a new infection since March, but also possible that the PCR test is simply positive due to the prior infection. No treatment given for this now off precautions (12) Sacral decubitus ulcer: Plan: Wound care consulted Offload pressure (13) Generalized weakness: Plan: Multifactorial PT,OT when able (14) DVT prophylaxis: Plan: Lovenox 40 mg daily. (15) Toxic encephalopathy: Plan: 2nd marinol - resolved also with mild hospital psychosis Cont risperdal 0.25mg HS - this has helped with mentation overall (16) COPD (chronic obstructive pulmonary disease): Plan: with exacerbation -- had improved but now with left lung collapse as above day #6 dexamethasone inhalers / etc (17) Urinary retention: Plan: failed voiding trial 05/03 ruth placed back started flomax 0.4mg daily will need urology f/u post-d/c Plan updated at bedside today Prior attending discussed with family and patient -- patient willing to have 1 round of CPR/defibrillation (~5 minutes). No intubation or ventilation. Family willing to attempt central line and pressors for 1-2 days if needed. will need rehab post-d/c -very weak - SNF level recommended Admission and Anticipated Discharge Date Admission Date: April 23, 2022 Subjective Pt seen after return from bronch and was noted by RN to have rapid HR in the 140s-160s and BP 88 systolic. He is c/o pain in the back of his neck that came on when he was trying to get positioned for his bronchoscopy. He points to a spot in the back of his mid cervical spine, says worse with movement. No CP, no SOB, feels the pain in neck is a 10/10. He is a bit restless and agitated when I saw him.Family all at bedside. He does report his breathing feels a little better since having the bronchoscopy. ECG shows rapid a-fib with rates in the 160s. I discussed his care with the Marketing Database Coordinator and Social Work Program Coordinator. He will be transferred to PCU. Review of Systems Review of Systems: All systems reviewed & are unremarkable except as noted in HPI & below Physical Exam Constitutional: + ill appearing and + cachectic; no acute distress (but slightly restless) Eyes: + anicteric sclerae ENMT: Nose: no external nose abnormality Neck: trachea midline, no thyromegaly Respiratory: normal respiratory effort; no labored breathing Auscultation: lungs clear to auscultation bilaterally; no crackles, no rhonchi and no wheezes Cardiovascular: Rate/Rhythm: + tachycardic and + irregularly irregular Heart Sounds: no murmur Extremities: no edema Gastrointestinal (Abdomen): normal bowel sounds, soft, nontender, no hepatosplenomegaly Musculoskeletal: Extremities: extremities normal to inspection; no cyanosis and no clubbing Skin: no rashes, warm and dry Neurologic: moves all extremities and awake; no focal motor deficits Psychiatric: Orientation: alert, oriented to person and cooperative Results & Data Results & Data ([facility]) Vital Signs (Past 12 Hours) Vital Signs Temp Pulse Pulse Pulse Resp BP Pulse Ox 05/05/22 14:10 167 H 88/57 L 97 05/05/22 13:43 24 05/05/22 13:41 146 H 05/05/22 13:40 36.4 C L 92/47 L 93 05/05/22 12:00 05/05/22 13:15 118 H 24 101/68 98 05/05/22 13:00 114 H 24 90/48 L 100 05/05/22 12:55 113 H 22 98/58 L 97 05/05/22 12:50 123 H 22 98/58 L 96 05/05/22 12:45 122 H 22 71/62 L 96 05/05/22 12:40 122 H 22 115/62 96 05/05/22 12:35 118 H 22 103/61 94 05/05/22 11:06 05/05/22 10:50 24 05/05/22 10:38 36.3 C L 109 H 30 H 93/53 L 93 05/05/22 09:51 36.8 C 95 H 20 110/68 94 05/05/22 08:00 05/05/22 07:43 95 H 20 05/05/22 03:22 92 O2 Del Method O2 Flow Rate 05/05/22 14:10 Oxymask 6 05/05/22 13:43 05/05/22 13:41 05/05/22 13:40 Oxymask 6 05/05/22 12:00 Oxymask 05/05/22 13:15 Oxymask 6 05/05/22 13:00 Oxymask 15 05/05/22 12:55 Oxymask 15 05/05/22 12:50 Oxymask 15 05/05/22 12:45 Oxymask 15 05/05/22 12:40 Oxymask 15 05/05/22 12:35 Oxymask 10 05/05/22 11:06 Oxymask 6 05/05/22 10:50 05/05/22 10:38 Oxymask 6 05/05/22 09:51 Oxymask 6 05/05/22 08:00 Oxymask 6 05/05/22 07:43 Room Air 05/05/22 03:22 Nasal Cannula 6 Laboratory Results 05/05/22 05/05/22 04/26/22 Range/Units 08:20 08:20 11:52 WBC 12.73 H (4.8-10.8) K/ul RBC 3.22 L (4.63-6.08) M/uL Hgb 9.3 L (14.0-18.0) g/dl Hct 28.5 L (40.1-51.0) % MCV 88.5 (80.0-100.0) fL MCH 28.9 (25.0-34.0) pg MCHC 32.6 (32.0-36.0) g/dL RDW Std Deviation 64.5 H (36.4-46.3) fL RDW Coeff of Ivett 21.1 H (11.5-14.5) % Plt Count 279 (130-400) K/uL MPV 9.6 (9.4-12.4) fL Immature Gran % (Auto) 1.3 % Neut % (Auto) 65.3 % Lymph % (Auto) 23.9 % Lanier % (Auto) 9.3 % Eos % (Auto) 0.0 % Baso % (Auto) 0.2 % Neut # (Auto) 8.32 H (1.4-6.5) K/uL Lymph # (Auto) 3.04 (1.2-3.4) K/uL Lanier # (Auto) 1.18 H (0.24-0.82) K/uL Eos # (Auto) 0.00 (0-0.50) K/uL Baso # (Auto) 0.03 (0-0.2) K/uL Immature Gran # (Auto) 0.16 H (0.00-0.02) K/uL Anisocytosis Present Sodium 135 L (136-145) mmol/L Potassium 3.5 (3.5-5.1) mmol/L Chloride 102 (98-107) mmol/L Carbon Dioxide 28 (21-32) mmol/L Anion Gap 5 (3-11) BUN 12 (6-23) mg/dl Creatinine 0.68 (0.6-1.4) mg/dl Est Cr Clr Drug Dosing 82.0 ml/min Est GFR ( Amer) 106.8 ml/min Est GFR (Non-Af Amer) 92.1 ml/min BUN/Creatinine Ratio 17.6 (10-20) Glucose 112 H (70-99(Fasting)) mg/dl Calcium 8.4 L (8.5-10.1) mg/dl Magnesium 1.4 L (1.7-2.4) mg/dl Crossmatch See Detail PG Care Time/CCT Total # of Minutes Spent Total Time Spent with Patient: Total time spent is greater than 50% in coordination of care (as documented) at patient's floor/unit and/or counseling patient: Coding Level of Care Code 11034 Subseq Hosp Care Lvl 3 Diagnoses Squamous cell lung cancer C34.90 Rapid atrial fibrillation I48.91 Pancytopenia due to antineoplastic chemotherapy D61.810; T45.1X5A Acute renal failure N17.9 Paraphimosis N47.2 Hypotension I95.9 Pneumonia J18.9 Fecal impaction K56.41 Pathologic fracture M84.40XA Severe protein-calorie malnutrition E43 COVID U07.1 Sacral decubitus ulcer L89.159 Generalized weakness R53.1 DVT prophylaxis Z29.9 Toxic encephalopathy G92.9 COPD (chronic obstructive pulmonary disease) J44.9 Urinary retention R33.9
--- NOTE | 2022-05-05 14:40 | XRay Report ---
XR chest 1V portable at 2:23 PM CLINICAL HISTORY: f/u bronch,hypoxia,neck pain. COMPARISON STUDY: Portable chest from 05/05/2022 at 1:11 PM TECHNIQUE: 1 view of the chest FINDINGS: Single frontal view of the chest demonstrates evidence for minimal air along the junction of the lung and mediastinum on the left characteristic of a pneumothorax. Additionally, there is also air seen within the mediastinum and tracking up into the neck on the left . Findings represent mild pneumomediastinum and subcutaneous emphysema. There is again evidence for left hilar mass with left lower lobe atelectasis/collapse. There is evide nce for small left pleural effusion with no definite right pleural effusion. There is no evidence for vascular congestion. There is no acute osseous pathology. IMPRESSION: 1. Evidence for a small pneumothorax with air seen tracking between the left lung and left margin of the mediastinum. 2. This also evidence for mild pneumomediastinum and subcutaneous emphysema tracking along the left s samantha of the neck. 3. Persistent left hilar mass with left lower lobe atelectasis/collapse and small left pleural effusi on. ACT 112: Negative or not required by law. Electronically signed by: Jigar Mccarty M.D. 05/05/2022 2:37 PM
[2022-05-05] MEDS ORDERED: METOPROLOL TARTRATE 1 MG/ML VIAL IV STA (14:56)
[2022-05-05] MEDS ORDERED: MAGNESIUM SULFATE / D5W 1 GM/100 ML BAG IV ONE (14:56)
[2022-05-05 15:45] LABS: Eosinophil Body Fluid Man 0 %; Fluid Mono/Macrophage 8 %; Lymphocyte Body Fluid Man 2 %; Neutrophil Body Fluid Man 90 %
[2022-05-05] MEDS: POTASSIUM CHLORIDE / WTR 10 MEQ/100 ML PLCT IV SCH ×2 (15:55→16:55)
--- NOTE | 2022-05-05 16:07 | Cardiology Consultation ---
Date of Consultation May 05, 2022 Assessment & Plan (1) Rapid atrial fibrillation: (2) Hypotension: (3) Hypomagnesemia: (4) Squamous cell lung cancer: Plan Frail-appearing 76-year-old man with metastatic lung cancer who developed atrial fibrillation with rapid ventricular response and mild hypotension (without evidence of hypoperfusion) after bronchoscopy this morning. Fortunately, he responded to small dose of beta-hien, would continue to give small doses of IV (metoprolol tartrate 2.5 mg IV every 1-2 hours PRN) for oral (metoprolol tartrate 12.5 mg p.o. every 6 hours) while reducing hold parameters to allow him to receive beta-hien as long as his systolic blood pressure is 80 mmHg or greater. He appears mildly volume depleted, IV fluids might be considered. Certainly agree with repleting magnesium, since this can be a major contributing factor to development of atrial fibrillation. Since the etiology of his atrial fibrillation appears to have reversible elements (hyperadrenergic after bronchoscopy, volume depleted, hypomagnesemia), a small dose of beta-hien upon discharge may be adequate to prevent recurrence. If he were to develop atrial fibrillation with rapid rate without clear precipitant, could consider amiodarone to prevent recurrence given his poor tolerance of tachycardia (hypotension). Also, given the reversibility/prevent ability of recurrent atrial fibrillation, in the absence of recurring atrial fibrillation he likely would not need long- term anticoagulation. Please contact if there is a change in his hemodynamic/cardiovascular status. Thank you for this consultation. History of Present Illness Reason for Consultation: rapid atrial fibrillation Requesting Physician: Kristin Chen MD Attending Physician: Kristin Chen MD History of Present Illness 76-year-old man with history of metastatic lung cancer on chemotherapy, no cardiac history, who developed atrial fibrillation with rapid ventricular response after bronchoscopy earlier today. Due to relative hypotension (systolic blood pressure in the 80-90 mmHg range) and rapid rate (up to 160 bpm) he was transferred to a monitored bed. He denied any chest pain, dyspnea, or subjective palpitations. He did note some posterior neck discomfort which seem to have a positional component. He was not diaphoretic or tachypneic. He answered simple questions appropriately and appeared cognitively intact. His peripheral pulses were intact (bounding brachial and radial pulses). Upon transfer to telemetry, he received metoprolol tartrate 2.5 mg IV with prompt decrease in heart rate and apparent return to sinus rhythm, albeit with frequent atrial ectopy. His blood pressure improved modestly (90/45 mmHg). He noted some easing of the posterior neck discomfort. Allergies Allergy/AdvReac Type Severity Reaction Status Date / Time Penicillins Allergy Unknown RXN Verified 04/03/22 13:12 UNKNOWN PER PT Home Medications Medication Instructions Recorded Confirmed Type multivitamin 1 tab PO QAM 11/26/21 04/23/22 History omega 1-weo-aec-fish oil 1,000 mg 1 cap PO QAM 11/26/21 04/23/22 History (120 mg-180 mg) capsule (Fish Oil) Flutter Valve #1 ea 12/03/21 03/11/22 Rx albuterol sulfate 90 mcg/actuation 2 puff inhalation Q6H PRN 12/03/21 04/23/22 Rx aerosol inhaler Shortness Of Breath Or Wheezing #18 grams mirtazapine 15 mg tablet (Remeron) 15 mg PO QAM 04/03/22 04/23/22 History fluconazole 100 mg tablet 100 mg PO DAILY@1500 04/23/22 04/23/22 History (Diflucan) pembrolizumab 25 mg/mL intravenous 0 mg IV UD 04/23/22 04/23/22 History solution (Keytruda) umeclidinium 62.5 mcg-vilanterol 1 inh inhalation QAM 04/23/22 04/23/22 History 25 mcg/actuation powdr for inhalation (Anoro Ellipta) Patient History Medical History (Updated 05/05/22 @ 16:01 by Nicolas Beatty MD) Abnormal chest CT Cavitary pneumonia Chronic bronchitis COPD (chronic obstructive pulmonary disease) Elevated cholesterol Ex-smoker Exertional shortness of breath Lyme disease Pathologic fracture Pneumonia Rapid atrial fibrillation Severe protein-calorie malnutrition Surgical History History of right hip replacement S/P bronchoscopy S/P left rotator cuff repair Status post right knee replacement Family History Brother Cancer Several brothers with cancer dx Father Cancer Mother Myocardial infarction Social History Smoking Status: Current some day smoker Hx Alcohol Use: Yes Hx Substance Use: No Preferred Language: Belarusian Communication Ability: Effective Visual Impairment: No Limitations Hearing Ability: Hard of Hearing Facilitator Required: No Beliefs That Will Affect Care: Catholic marital status: Current Living Situation: Spouse current occupational status: retired Feels Safe at Home: No Is there a partner from a previous relationship who is making you feel unsafe now?: No caffeine: Yes Physical Activity Frequency: Does not Exercise Assistive Devices: Raised Toilet Seat, Walker and Wheelchair Physical Exam Physical Exam: Frail elderly white male who appeared mildly uncomfortable but not severely distressed. Systolic blood pressure 80-90 mmHg range. Pulse initially 140 bpm, subsequently 90 bpm range. Respiration rate increased but unlabored. Skin: no ecchymoses or generalized lesions. HEENT: unremarkable. Neck: Jugular venous pulse appeared to be reduced, no obvious carotid bruits. Lungs: Decreased breath sounds bilaterally, coarse crackles on the left. No obvious wheezes or accessory muscle use. Cardiac: Irregular/tachycardic rhythm initially, no obvious murmur or gallop. Abdomen: benign. Extremities: no edema, pulses intact. Neurologic: normal affect, hard of hearing, grossly nonfocal. Results & Data ([facility]) Laboratory Results Hemoglobin 9.3. Potassium 3.5. Magnesium 1.4. BUN 12. Creatinine 0.68. Diagnostic Findings Telemetry showed atrial fibrillation with rapid ventricular response initially, then appeared to show return to sinus rhythm with frequent PACs. Chest x-ray this afternoon shows small pneumothorax in the left side and mild pneumomediastinum and subcutaneous emphysema in the left neck. Persistent left hilar mass with left lower lobe atelectasis/collapse and small left pleural effusion. PG Care Time/CCT Total # of Minutes Spent Total Time Spent with Patient: Total time spent is greater than 50% in coordination of care (as documented) at patient's floor/unit and/or counseling patient: Coding Level of Care Code 51163 Inpt Consult Level 4 Diagnoses Rapid atrial fibrillation I48.91 Hypotension I95.9 Hypomagnesemia E83.42 Squamous cell lung cancer C34.90
--- NOTE | 2022-05-05 16:50 | CT Scan Report ---
CERVICAL SPINE CT CT DOSE: 242.63 mGy.cm HISTORY: neck pain,bony mets,r/o fracture TECHNIQUE: Multiaxial CT images of the cervical spine were performed and reformatted in the sagittal and coronal plane without the use of contrast. A dose lowering technique was utilized adhering to th e principles of ALARA. COMPARISON: PET CT 02/25/2022. FINDINGS: No suspicious lytic or blastic osseous lesions within the cervical spine. No fracture or parkinson bluxation. There is moderate to severe disc space narrowing at C3-C4 and C6-C7. Mild disc space narro wing at C4-C5 and C5-C6. There are large endplate osteophytes from C3 through C7. The C2-C3 vertebral bodies and facets are fused. Severe central canal narrowing at C5-C6 due to a broad-based posterior disc osteophyte complex. There is moderate central canal narrowing at C3-C4. Prevertebral soft tissue s and the C1-C2 interval are intact. Emphysema. A left pleural effusion is partially visualized. IMPRESSION: 1. No acute fractures within the cervical spine. 2. No suspicious lytic or blastic osseous lesions within the cervical spine. 3. Moderate to severe degenerative changes as described above. 4. Left pleural effusion. ACT 112: Negative or not required by law. Electronically signed by: Isak Moreau M.D. 05/05/2022 4:48 PM
[2022-05-05] MEDS ORDERED: risperiDONE 0.5 MG TABLET PO ONE (17:32)
[2022-05-05] MEDS: risperiDONE 0.5 MG TABLET PO SCH (20:56)
[2022-05-05] MEDS: MIRTAZAPINE TAB 15 MG TAB PO SCH (20:57)
[2022-05-05 21:51] LABS: Albumin Globulin Ratio 0.7 (0.9-2); Albumin Level 2.1 gm/dl (3.4-5.0); BUN Creatinine Ratio 16.9 (10-20); Bilirubin,Total 0.5 mg/dl (0.2-1.0); Calcium 8.3 mg/dl (8.5-10.1); Creatinine Clr Calc Pharmacy 78.5 ml/min; Est GFR (African American) 104.9 ml/min; Est GFR (Non-African American) 90.5 ml/min; Magnesium 1.7 mg/dl (1.7-2.4); Phosphorus 3.1 mg/dl (2.5-4.9); Potassium 4.1 mmol/L (3.5-5.1); Total Protein 5.1 gm/dl (6.0-8.3)
[2022-05-05] MEDS: TAMSULOSIN HCL 0.4 MG CAP PO SCH (21:51)
[2022-05-05 22:07] LABS: Anisocytosis Present; Basophils # (auto) 0.03 K/uL (0-0.2); Basophils % (auto) 0.2 %; Eosinophils # (auto) 0.04 K/uL (0-0.50); Eosinophils % (auto) 0.2 %; Hematocrit (blood only) 26.8 % (40.1-51.0); Hemoglobin 8.6 g/dl (14.0-18.0); Immature Granulocytes # (auto) 0.27 K/uL (0.00-0.02); Immature Granulocytes % (auto) 1.5 %; Lymphocytes % (auto) 6.2 %; Mean Corpuscular Hemoglobin 29.1 pg (25.0-34.0); Mean Corpuscular Hgb Conc 32.1 g/dL (32.0-36.0); Mean Corpuscular Volume 90.5 fL (80.0-100.0); Mean Platelet Volume 9.9 fL (9.4-12.4); Monocytes # (auto) 0.96 K/uL (0.24-0.82); Monocytes % (auto) 5.4 %; Neutrophils # (auto) 15.47 K/uL (1.4-6.5); Neutrophils % (auto) 86.5 %; Platelet Count 277 K/uL (130-400); Polychromasia 1+; RDW Coefficient of Variation 21.2 % (11.5-14.5); RDW Standard Deviation 67.7 fL (36.4-46.3); Red Blood Count 2.96 M/uL (4.63-6.08); White Blood Count 17.87 K/ul (4.8-10.8)
--- NOTE | 2022-05-05 22:10 | Communication Note ---
Date of Service: May 05, 2022 Night resident note RN notified me that patient had asymptomatic hypotension (70s/40s) this evening and noted patient had a bronchoscopy with washout earlier today due to left lung collapse. Patient was tachycardic to the mid 100s, RR / temp were normal, oxygen requirement has been stable at 6L oxymask since the bronchoscopy earlier today. I ordered a NSS 500mL bolus x1. After the bolus was complete, BP was unchanged. RN performed a respiratory exam and noted possible lower lobe rales in addition to generalized diminished breath sounds. Given these rales and concern for pulmonary edema / CHF, I ordered a portable CXR and BNP level, in addition to a CBC and CMP. CXR showed worsened left lobe haziness, and there was no worsened CVA blunting. Albumin level came back at 2.1, and BNP came back only trivially elevated at 190. I discussed the case with my attending, and we decided to order a stat CTA chest to evaluate for PE +/- post-bronchoscopy hemorrhage given patient's hypotension, tachycardia, and hypercoagulable state due to heavy cancer burden despite being on lovenox. Also ordered an albumin infusion. BP improved to 90s/50s, patient still asymptomatic. CBC then resulted, showing a worsened leukocytosis from 12.7 this morning to 17.9 this evening. Worsened leukocytosis could be secondary to today's broncho scopy, but I ordered a stat blood culture and added a procal level to assess for bacterial infection. I do not suspect the leukocytosis is solely due to steroid use, as patient's WBC count acutely chandu today even though he has been on dexamethasone for three days now. Procal came back elevated to 0.66. CTA chest was negative for PE but showed complete LLL consolidation and an irregular gas collection in the central lower lobe concerning for pulmonary abscess. Given the imaging findings concerning for pulmonary abscess, I ordered unasyn 3g IV q6h. Of note, patient's chart lists a PCN allergy - however, on review of med administrations, patient received a few doses of unasyn on admission (04/23/22) without adverse reaction. Patient's BP remained soft throughout the rest of the overnight shift, but patient remained asymptomatic, and no additional events arose. Fermin Acevedo, PGY-3 Resident Activity Tracking Resident Involvement: Resident Care Provided and Spindle Setter Coverage Note Care Provided: [facility]
[2022-05-05] MEDS ORDERED: OPTIRAY 320 125ml IV ONE (22:26)
[2022-05-05] MEDS: ALBUMIN 25% 100 mL 25 GM/100 ML VIAL IV SCH (22:50)
[2022-05-06] MEDS: AMPICILLIN/SULBACTAM SOD 3,000 MG in 0.9 % SODIUM CHLORIDE 100 ML IV SCH ×2 (00:34→06:01)
[2022-05-06] MEDS: ALBUMIN 25% 100 mL 25 GM/100 ML VIAL IV SCH ×3 (00:50→04:44)
[2022-05-06] MEDS: ALBUT/IPRATROP 3MG/0.5MG NEB 3 ML VIAL NEB SCH ×2 (07:19→19:41)
[2022-05-06] MEDS: SODIUM CHLOR 7% 4 ML NEB NEB SCH ×2 (07:19→19:41)
[2022-05-06] MEDS: ACETYLCYSTEINE 20% INHAL SOLN 4ML ***DISPENSED BY RESP. INH SCH ×2 (07:19→19:42)
--- NOTE | 2022-05-06 07:53 | XRay Report ---
XR chest 1V portable CLINICAL HISTORY: hypoxia, hypotension, s/p bronchoscopy COMPARISON STUDY: Chest CT May 04, 2022. Chest radiograph May 05, 2022 at 2:23 PM. FINDINGS: Left lung aeration has diminished since exam of May 05, 2022 of 2:23 PM. Small bilateral p leural effusions are noted. Right basilar opacity persists. There is no pneumothorax. IMPRESSION: 1. Interval in left lung opacity with diminished aeration since prior study. 2. Small bilateral pleural effusions. 3. No pneumothorax. ACT 112: Negative or not required by law. Electronically signed by: Chemo Hernandes M.D. 05/06/2022 7:52 AM
[2022-05-06] MEDS ORDERED: PIPERACILLIN/TAZOBACTAM 3.375 GM in DEXTROSE 5% 100 ML IV ONE (08:00)
[2022-05-06 08:40] LABS: Basophils # (auto) 0.03 K/uL (0-0.2); Basophils % (auto) 0.3 %; Hematocrit (blood only) 24.5 % (40.1-51.0); Hemoglobin 7.6 g/dl (14.0-18.0); Immature Granulocytes # (auto) 0.08 K/uL (0.00-0.02); Immature Granulocytes % (auto) 0.8 %; Lymphocytes # (auto) 1.58 K/uL (1.2-3.4); Lymphocytes % (auto) 16.3 %; Mean Corpuscular Volume 93.5 fL (80.0-100.0); Mean Platelet Volume 9.5 fL (9.4-12.4); Monocytes # (auto) 0.45 K/uL (0.24-0.82); Monocytes % (auto) 4.6 %; Neutrophils # (auto) 7.58 K/uL (1.4-6.5); Platelet Count 219 K/uL (130-400); RDW Coefficient of Variation 21.2 % (11.5-14.5); RDW Standard Deviation 70.4 fL (36.4-46.3); Red Blood Count 2.62 M/uL (4.63-6.08); White Blood Count 9.72 K/ul (4.8-10.8)
[2022-05-06] MEDS: dexAMETHasone 4 MG TAB PO SCH ×2 (08:54→17:00)
[2022-05-06] MEDS: PANTOprazole 40 MG TAB PO SCH (08:54)
[2022-05-06] MEDS: UMECLIDINIUM/VILANTEROL 62.5/25MCG 7 PUFFS/INHALER INH SCH (08:55)
[2022-05-06] MEDS: ENOXAPARIN INJ 40 MG/0.4 ML SYR SQ SCH (08:56)
[2022-05-06] MEDS: POLYETHYLENE (MIRALAX) 17 GM PACK PO SCH (08:58)
--- NOTE | 2022-05-06 09:05 | CT Scan Report ---
CHEST CTA for PULMONARY ARTERIES CT DOSE: 248.83 mGy.cm HISTORY: Shortness of breath. Atypical chest pain. PE r/o, bronchoscopy earlier today TECHNIQUE: Multiaxial CT images of the chest were performed following the intravenous administration of contrast to evaluate the pulmonary arteries. Maximal intensity projection images were also obtaine d. A dose lowering technique was utilized adhering to the principles of ALARA. COMPARISON STUDY: Chest CT 05/04/2022. FINDINGS: No pneumothorax. Mucoid material within the left mainstem bronchus and left lower lobe bron chi resulting in near-complete opacification. This is similar to the prior study. There is complete c ollapse of the left lower lobe. The large left lower lobe cavitary mass is partially obscured by the collapsed left lower lobe. There are small bilateral pleural effusions, left greater than right. Ther e is improved aeration within the left upper lobe status post bronchoscopy. A few small patchy densit ies within the lingula and base the right lower lobe are noted. This could be due to an aspiration pn eumonitis. Emphysema is again noted. No suspicious lytic are blastic osseous lesions. Normal caliber thoracic aorta with no evidence for dissection. The heart is normal in size. Trace pericardial effusi on. No filling defects within the pulmonary arteries to suggest a pulmonary embolus. Of note, the rig ht lower lobe subsegmental pulmonary arteries are nondiagnostic due to the respiratory motion artifac t. The visualized liver and spleen are unremarkable. There is a partially visualized large right burak l cyst. Normal esophagus. There is mild mass effect along the left lower lobe pulmonary artery due to the cavitary mass. IMPRESSION: 1. No evidence for pulmonary embolus. 2. Mucoid material within the left mainstem bronchus and left lower lobe bronchi resulting in near co mplete opacification. This is similar to the prior study and likely results in complete collapse of t he left lower lobe. This partially obscures the large left lower lobe cavitary mass. 3. There is improved aeration within the left upper lobe status post bronchoscopy. No pneumothorax. 4. Small patchy airspace opacities within the lingula and right lung base may represent an aspiration pneumonitis. 5. Emphysema. 6. Small bilateral pleural fusions. ACT 112: Negative or not required by law. Electronically signed by: Isak Moreau M.D. 05/06/2022 9:02 AM
[2022-05-06 09:09] LABS: RBC Morphology Unremarkable
[2022-05-06 09:11] LABS: Albumin Globulin Ratio 1.3 (0.9-2); Albumin Level 3.3 gm/dl (3.4-5.0); BUN Creatinine Ratio 15.7 (10-20); Bilirubin,Total 0.5 mg/dl (0.2-1.0); Calcium 9.5 mg/dl (8.5-10.1); Creatinine Clr Calc Pharmacy 79.5 ml/min; Est GFR (African American) 105.5 ml/min; Globulin 2.5 gm/dl (2.5-4.0); Magnesium 1.9 mg/dl (1.7-2.4); Potassium 3.8 mmol/L (3.5-5.1); Total Protein 5.8 gm/dl (6.0-8.3)
[2022-05-06] MEDS ORDERED: SODIUM CHLORIDE 0.9% 250 ML IV PRN (09:29)
[2022-05-06] MEDS: SENNA 8.6 MG TAB PO SCH (09:42)
[2022-05-06] MEDS: FOLIC ACID 1 MG TAB PO SCH (09:43)
--- NOTE | 2022-05-06 10:50 | Hospitalist Progress Note ---
Date of Service May 06, 2022 Assessment & Plan (1) Squamous cell lung cancer: Plan: Diagnosed in 02/2022 in the left lung. Stage 4 - mets to the liver, brain, lymph nodes, and now with recent evidence of mets to the bones on CT chest 04/22. s/p brain radiation & one dose of carboplatin/paclitaxel/pembrolizumab on 04/06/2022. Since starting chemotherapy, has had significant failure to thrive, weight loss, low appetite, and now here with anemia and thrombocytopenia secondary to antineoplastic therapy. Has required transfusional support throughout the stay. Failure to thrive has been severe-he still is only having a couple of boost per day and has no appetite since receiving his first round of chemotherapy CT head obtained this week due to confusion and known h/o brain mets. No new brain mets or CVA or ICH seen. Developed complete collapse of left lung on 05/04, was acutely requiring 6L O2. Appreciate pulmonary consult-now s/p bronch with mucus plugging removed, lung re-expanded but then left lower lobe collapse again as evidenced on CT chest repeated for hypotension on the evening of 05/05 Continue Chest PT, cough assist device, lay on right side when in bed, other pulmonary toilet. -continue supplemental O2 as needed and wean off to keep POx> 90% -follow CXR -teating for PNA again as below Had lengthy discussion with and daughter at bedside 05/06 regarding goals of care and possibility of transitioning to hospice.Patient was not able to participate in the conversation as he was sleeping. Family seems to think his current state is not a good QOL for him and that he would not want to continue this path. He most likely would not tolerate any further chemotherapy and family agrees with this. WIll wait for pt to wake up more from his encephalopathy currently and involve Palliative Medicine tomorrow to further discuss. (2) Acute encephalopathy: Plan: developed worsening mental status after sedation for bronchoscopy on 05/05 Etiology hypoxia, medication SE as has a h/o benzo adverse /paradoxical reaction, and pneumonia, hypotension Having some lethargy, combativeness Slept all day on 05/06 but did not sleep all night 05/05 Increase Risperdal to 0.5mg po hs for tonight to help with agitation and rest sleep wake cycle. Weaning down supplemental O2 Treating PNA with IV abx now Avoid benzos supportive care (3) Pneumonia: Plan: LLL. completed 7+ days of IV Unasyn for postobstructive pneumonia initially Now with worsening mucus plugging, LLL collapse, leukocytosis, and GNR growing in bronch washings -add ZOsyn on follow cultures pulm toilet (4) Pancytopenia due to antineoplastic chemotherapy: Plan: s/p 3 units of PRBCs while here. Low platelets resolved. B12 level wnl. Folate is low-normal - giving folic acid 1mg Daily. Hgb down today to 7.6. Did have some bleeding during bronch. Transfuse 2 units PRBCs today especially in light of hypotension Check cbc in am. (5) Hypotension: Plan: worsened after bronch, could be due to sepsis from PNA? Vs blood loss anemia Runs soft at baseline Cortisol level normal on admission improved now somewhat with PRBC transfusion today plus IV albumin overnight increase dexamethasone to 4mg po bid follow (6) Rapid atrial fibrillation: Plan: developed ROSENDO with rates in 160s s/p bronchoscopy on 05/05, with soft BPs although he always runs a little low on BPs new onset for him but has not been on tele so hard to say when started -transferred to PCU -gave IV lopressor 2.5mg IV x 1 and converted to sinus rhythm -remains in NSR now -appreciate consult Cardiology - ECHO with preserved EF, mildly elevated RVSP -replaced mag and potassium -no anticoagulation for now given ongoing anemia and brief Afib (7) Acute renal failure: Plan: resolved pre-renal (8) Paraphimosis: Plan: Developed such on 04/25/22. [facility] [place] Urology consulted with successful reduction. Tried to d/c ruth 05/03 -- failed voiding trial, ruth placed back. Started flomax 0.4mg daily 05/03. (9) Fecal impaction: Plan: resolved, then had severe diarrhea x 24 hrs which then resolved reports chronic, somewhat severe constipation. cont daily bowel regimen - senna + miralax. (10) Pathologic fracture: Plan: Right distal clavicle. Ideally should be in sling for such but no pain reported by him and minimal, if any, deformity noted on exam. follow. Had neck pain which does seem MSK in nature after positioning on table for bronchoscopy--> checked CT neck and no fractures or bony lesions continue tylenol prn pain (11) Severe protein-calorie malnutrition: Plan: 2nd to advanced cancer, ?COVID, etc. Cont remeron. Had delirium with trial of Marinol which was then stopped Cont dexamethasone - should help breathing, appetite, and bone pain. (12) COVID: Plan: Tested + on home test in early March by report. Cannot exclude that this is a new infection since March, but also possible that the PCR test is simply positive due to the prior infection. No treatment given for this now off precautions (13) Sacral decubitus ulcer: Plan: Wound care consulted Offload pressure (14) Generalized weakness: Plan: Multifactorial PT,OT when able (15) DVT prophylaxis: Plan: hold Lovenox due to worsening anemia and possible bleeding from bronchoscopy/tumor (16) Toxic encephalopathy: Plan: 2nd marinol - resolved also with mild hospital psychosis Cont risperdal as above (17) COPD (chronic obstructive pulmonary disease): Plan: with exacerbation -- had improved but now with left lung collapse as above continue dexamethasone inhalers / etc (18) Urinary retention: Plan: failed voiding trial 05/03 ruth placed back started flomax 0.4mg daily will need urology f/u post-d/c Plan Dispo-continued stay, considering transition to hospice, more likely at facility as could not care for him on her own at home COnsult Palliative Medicine Admission and Anticipated Discharge Date Admission Date: April 23, 2022 Subjective Patient had a rough night with low blood pressures, confusion and agitation. He was given boluses of albumin and had a CT angiogram of the chest which showed left lower lobe collapse and possible abscess but no PE. He was started on Unasyn. This morning his blood pressures are improved, he is sleeping but wakes up easily and answers my questions, seems less agitated. Later in the day I came back to see him again and he was still sleeping and had been all day but then woke up and was eating dinner with his family. We had a long discussion about goals of care and possibility of going on hospice. Family reports that his quality of life being in the hospital is not good and he would not want this. Patient remains a bit confused. Telemetry with normal sinus rhythm, rates in the 90s I discussed his care with the inspector crystal. Review of Systems Review of Systems: Unobtainable due to cognitive status Physical Exam Constitutional: + ill appearing and + cachectic; no acute distress Eyes: + anicteric sclerae ENMT: Nose: no external nose abnormality Neck: trachea midline, no thyromegaly Respiratory: normal respiratory effort; no labored breathing Auscultation: lungs clear to auscultation bilaterally and + diminished lung sounds (LLL); no crackles, no rhonchi and no wheezes Cardiovascular: RRR, no murmur, no edema Gastrointestinal (Abdomen): normal bowel sounds, soft, nontender, no hepatosplenomegaly Musculoskeletal: Extremities: extremities normal to inspection; no cyanosis and no clubbing Skin: no rashes, warm and dry Neurologic: moves all extremities; + not awake (But does wake up easily and responds to some questions) Results & Data Results & Data ([facility]) Vital Signs (Past 12 Hours) Vital Signs Temp Pulse Pulse Pulse Resp BP Pulse Ox 05/06/22 07:22 70 22 99 05/06/22 07:16 71 05/06/22 07:16 36.4 C L 69 20 97/63 L 100 05/06/22 04:40 80 18 82/47 L 98 05/05/22 23:28 85 05/05/22 23:01 82 18 91/51 L 98 O2 Del Method O2 Flow Rate 05/06/22 07:22 Oxymask 5 05/06/22 07:16 05/06/22 07:16 Oxymask 6 05/06/22 04:40 Oxymask 6 05/05/22 23:28 05/05/22 23:01 Oxymask 6 Laboratory Results 05/06/22 05/06/22 05/06/22 Range/Units 09:45 08:26 08:26 WBC 9.72 (4.8-10.8) K/ul RBC 2.62 L (4.63-6.08) M/uL Hgb 7.6 L (14.0-18.0) g/dl Hct 24.5 L (40.1-51.0) % MCV 93.5 (80.0-100.0) fL MCH 29.0 (25.0-34.0) pg MCHC 31.0 L (32.0-36.0) g/dL RDW Std Deviation 70.4 H (36.4-46.3) fL RDW Coeff of Ivett 21.2 H (11.5-14.5) % Plt Count 219 (130-400) K/uL MPV 9.5 (9.4-12.4) fL Immature Gran % (Auto) 0.8 % Neut % (Auto) 78.0 % Lymph % (Auto) 16.3 % [facility] % (Auto) 4.6 % Eos % (Auto) 0.0 % Baso % (Auto) 0.3 % Neut # (Auto) 7.58 H (1.4-6.5) K/uL Lymph # (Auto) 1.58 (1.2-3.4) K/uL [facility] # (Auto) 0.45 (0.24-0.82) K/uL Eos # (Auto) 0.00 (0-0.50) K/uL Baso # (Auto) 0.03 (0-0.2) K/uL Immature Gran # (Auto) 0.08 H (0.00-0.02) K/uL RBC Morphology Unremarkable Polychromasia Anisocytosis Sodium 144 (136-145) mmol/L Potassium 3.8 (3.5-5.1) mmol/L Chloride 108 H (98-107) mmol/L Carbon Dioxide 29 (21-32) mmol/L Anion Gap 7 (3-11) BUN 11 (6-23) mg/dl Creatinine 0.70 (0.6-1.4) mg/dl Est Cr Clr Drug Dosing 79.5 ml/min Est GFR ( Amer) 105.5 ml/min Est GFR (Non-Af Amer) 91.0 ml/min BUN/Creatinine Ratio 15.7 (10-20) Glucose 115 H (70-99(Fasting)) mg/dl Calcium 9.5 (8.5-10.1) mg/dl Phosphorus (2.5-4.9) mg/dl Magnesium 1.9 (1.7-2.4) mg/dl Total Bilirubin 0.5 (0.2-1.0) mg/dl AST 7 L (13-39) U/L ALT 5 L (7-52) U/L Alkaline Phosphatase 60 (34-104) U/L B-Natriuretic Peptide (0-100) pg/ml Total Protein 5.8 L (6.0-8.3) gm/dl Albumin 3.3 L (3.4-5.0) gm/dl Globulin 2.5 (2.5-4.0) gm/dl Albumin/Globulin Ratio 1.3 (0.9-2) Procalcitonin (0-0.5) ng/ml Blood Type A Positive Antibody Screen NEGATIVE Crossmatch See Detail 05/05/22 05/05/22 05/05/22 Range/Units 22:37 21:02 21:02 WBC (4.8-10.8) K/ul RBC (4.63-6.08) M/uL Hgb (14.0-18.0) g/dl Hct (40.1-51.0) % MCV (80.0-100.0) fL MCH (25.0-34.0) pg MCHC (32.0-36.0) g/dL RDW Std Deviation (36.4-46.3) fL RDW Coeff of Ivett (11.5-14.5) % Plt Count (130-400) K/uL MPV (9.4-12.4) fL Immature Gran % (Auto) % Neut % (Auto) % Lymph % (Auto) % [facility] % (Auto) % Eos % (Auto) % Baso % (Auto) % Neut # (Auto) (1.4-6.5) K/uL Lymph # (Auto) (1.2-3.4) K/uL [facility] # (Auto) (0.24-0.82) K/uL Eos # (Auto) (0-0.50) K/uL Baso # (Auto) (0-0.2) K/uL Immature Gran # (Auto) (0.00-0.02) K/uL RBC Morphology Polychromasia Anisocytosis Sodium 136 (136-145) mmol/L Potassium 4.1 (3.5-5.1) mmol/L Chloride 106 (98-107) mmol/L Carbon Dioxide 24 (21-32) mmol/L Anion Gap 6 (3-11) BUN 12 (6-23) mg/dl Creatinine 0.71 (0.6-1.4) mg/dl Est Cr Clr Drug Dosing 78.5 ml/min Est GFR ( Amer) 104.9 ml/min Est GFR (Non-Af Amer) 90.5 ml/min BUN/Creatinine Ratio 16.9 (10-20) Glucose 120 H (70-99(Fasting)) mg/dl Calcium 8.3 L (8.5-10.1) mg/dl Phosphorus 3.1 (2.5-4.9) mg/dl Magnesium 1.7 (1.7-2.4) mg/dl Total Bilirubin 0.5 (0.2-1.0) mg/dl AST 8 L (13-39) U/L ALT 7 (7-52) U/L Alkaline Phosphatase 75 (34-104) U/L B-Natriuretic Peptide 190 H (0-100) pg/ml Total Protein 5.1 L (6.0-8.3) gm/dl Albumin 2.1 L (3.4-5.0) gm/dl Globulin 3.0 (2.5-4.0) gm/dl Albumin/Globulin Ratio 0.7 L (0.9-2) Procalcitonin 0.66 H (0-0.5) ng/ml Blood Type Antibody Screen Crossmatch 05/05/22 Range/Units 21:02 WBC 17.87 H (4.8-10.8) K/ul RBC 2.96 L (4.63-6.08) M/uL Hgb 8.6 L (14.0-18.0) g/dl Hct 26.8 L (40.1-51.0) % MCV 90.5 (80.0-100.0) fL MCH 29.1 (25.0-34.0) pg MCHC 32.1 (32.0-36.0) g/dL RDW Std Deviation 67.7 H (36.4-46.3) fL RDW Coeff of Ivett 21.2 H (11.5-14.5) % Plt Count 277 (130-400) K/uL MPV 9.9 (9.4-12.4) fL Immature Gran % (Auto) 1.5 % Neut % (Auto) 86.5 % Lymph % (Auto) 6.2 % [facility] % (Auto) 5.4 % Eos % (Auto) 0.2 % Baso % (Auto) 0.2 % Neut # (Auto) 15.47 H (1.4-6.5) K/uL Lymph # (Auto) 1.10 L (1.2-3.4) K/uL [facility] [place] # (Auto) 0.96 H (0.24-0.82) K/uL Eos # (Auto) 0.04 (0-0.50) K/uL Baso # (Auto) 0.03 (0-0.2) K/uL Immature Gran # (Auto) 0.27 H (0.00-0.02) K/uL RBC Morphology Polychromasia 1+ Anisocytosis Present Sodium (136-145) mmol/L Potassium (3.5-5.1) mmol/L Chloride (98-107) mmol/L Carbon Dioxide (21-32) mmol/L Anion Gap (3-11) BUN (6-23) mg/dl Creatinine (0.6-1.4) mg/dl Est Cr Clr Drug Dosing ml/min Est GFR ( Amer) ml/min Est GFR (Non-Af Amer) ml/min BUN/Creatinine Ratio (10-20) Glucose (70-99(Fasting)) mg/dl Calcium (8.5-10.1) mg/dl Phosphorus (2.5-4.9) mg/dl Magnesium (1.7-2.4) mg/dl Total Bilirubin (0.2-1.0) mg/dl AST (13-39) U/L ALT (7-52) U/L Alkaline Phosphatase (34-104) U/L B-Natriuretic Peptide (0-100) pg/ml Total Protein (6.0-8.3) gm/dl Albumin (3.4-5.0) gm/dl Globulin (2.5-4.0) gm/dl Albumin/Globulin Ratio (0.9-2) Procalcitonin (0-0.5) ng/ml Blood Type Antibody Screen Crossmatch PG Care Time/CCT Total # of Minutes Spent Total Time Spent with Patient: Total time spent is greater than 50% in coordination of care (as documented) at patient's floor/unit and/or counseling patient: Coding Level of Care Code 41458 Subseq Hosp Care Lvl 3 Diagnoses Squamous cell lung cancer C34.90 Acute encephalopathy G93.40 Pneumonia J18.9 Pancytopenia due to antineoplastic chemotherapy D61.810; T45.1X5A Hypotension I95.9 Rapid atrial fibrillation I48.91 Acute renal failure N17.9 Paraphimosis N47.2 Fecal impaction K56.41 Pathologic fracture M84.40XA Severe protein-calorie malnutrition E43 COVID U07.1 Sacral decubitus ulcer L89.159 Generalized weakness R53.1 DVT prophylaxis Z29.9 Toxic encephalopathy G92.9 COPD (chronic obstructive pulmonary disease) J44.9 Urinary retention R33.9
--- NOTE | 2022-05-06 11:25 | Pulmonology Progress Note ---
Date of Service May 06, 2022 Assessment & Plan (1) Urinary retention: (2) Toxic encephalopathy: (3) Squamous cell lung cancer: (4) COVID: (5) Acute on chronic respiratory failure with hypoxemia: (6) Lung collapse: Plan CT scan 05/04/2022 personally reviewed: Centrilobular emphysema appreciated There is mucous plugging of the left main resulting in total collapse of the left lung, cavitary mass also appreciated Significant mediastinal lymphadenopathy which is unchanged. --Left lung collapse Likely from mucous plugging Continue with Mucomyst and hypertonic saline Continue with CoughAssist S/p bronchoscopy 05/05/2022 with clearing of the mucous plug. Gram-negative bacilli growing in the bronchial wash --> continue with antibiotic --Stage IV squamous cell carcinoma of the lung Patient is developing necrosis of the mass. With mets to the brain Following up with oncology I do not think patient has cavitary pneumonia. Patient has left lower lobe collapse because necrotizing mass is obstructing the left lower lobe bronchus The mucosa was very friable around the mass. --COPD with chronic bronchitis Gold class B/C Continue with Anoro PFTs 11/11/2021: Moderate COPD, insignificant bronchodilator response, moderate decrease in DLCO which does not correct for VA FVC 3.91 L 92%, FEV1 2.4 L 77%, FEV1/FVC 63%, RV 102%, TLC 93%, RV/TLC 107%, DLCO 42%, DLCO/VA 53% -- Hypotensive episode Patient is already on dexamethasone, I doubt this is adrenal insufficiency If needed we can increase the dexamethasone to 4 mg twice daily Plan: CTA chest done today reviewed. There is improvement in aeration of the left upper lobe, cavitary mass of the left lower lobe. Bilateral pleural effusion more on the left Continue with antibiotics as gram-negative bacilli are seen on the gram stain from the bronchial wash I personally do not think this is abscess. I went over the images with Dr. Hernandes as well who concurs. There is minimal drop in hemoglobin. Hold Lovenox. Repeat H&H later today Case was discussed with Dr. Chen Please note the above document was generated using voice recognition software. It may contain grammatical, syntax or spelling errors.Any formal questions or concerns about the content, text or information contained within the body of this dictation should be directly addressed to the provider for clarification. Admission and Anticipated Discharge Date Admission Date: April 23, 2022 Subjective Patient seen and examined at bedside. Overnight patient had an episode of hypotension He had a CTA chest done today. Patient was saturating under percent on 6 L. We went down to 2 L and he was still saturating 90% Can gradually titrated down to keep O2 saturation 90-92% He was sleeping Review of Systems Review of Systems: All systems reviewed & are unremarkable except as noted in Subjective and Unobtainable due to mental health condition Physical Exam Physical Exam: Constitutional: No acute distress, frail-appearing HEENT: EOMI, PERRLA Respiratory system: Decreased air entry in the left side, positive crackles left side, no wheeze, no rhonchi CVS: S1-S2 positive, no murmurs or gallops Abdomen: Soft, nontender, nondistended, positive bowel sounds x4 Extremities: +2 pulses bilaterally radialis/ dorsalis pedis, no cyanosis, no edema Neuro: Awake alert oriented to self Psych: Normal mood and affect G/U: Positive Tucker Skin: no rashes, warm and dry Lymphatic: no cervical or axillary lymphadenopathy Results & Data Results & Data ([facility]) Vital Signs (Past 12 Hours) Vital Signs Temp Pulse Pulse Pulse Resp BP Pulse Ox 05/06/22 07:30 05/06/22 07:22 70 22 99 05/06/22 07:16 71 05/06/22 07:16 36.4 C L 69 20 97/63 L 100 05/06/22 04:40 80 18 82/47 L 98 05/05/22 23:28 85 O2 Del Method O2 Flow Rate 05/06/22 07:30 Oxymask 6 05/06/22 07:22 Oxymask 5 05/06/22 07:16 05/06/22 07:16 Oxymask 6 05/06/22 04:40 Oxymask 6 05/05/22 23:28 Laboratory Results 05/06/22 08:26 05/06/22 08:26 PG Care Time/CCT Total # of Minutes Spent Total Time Spent with Patient: Total time spent is greater than 50% in coordination of care (as documented) at patient's floor/unit and/or counseling patient: Coding Level of Care Code 01907 Subseq Hosp Care Lvl 2 Diagnoses Urinary retention R33.9 Toxic encephalopathy G92.9 Squamous cell lung cancer C34.90 COVID U07.1 Acute on chronic respiratory failure with hypoxemia J96.21 Lung collapse J98.19
--- NOTE | 2022-05-06 11:37 | Electrocardiogram Report ---
Test Reason : Blood Pressure : / mmHG Vent. Rate : 163 BPM Atrial Rate : 394 BPM P-R Int : 000 ms QRS Dur : 086 ms QT Int : 292 ms P-R-T Axes : 000 000 232 degrees QTc Int : 480 ms Atrial fibrillation with rapid ventricular response Low voltage QRS Marked ST abnormality, possible anterseptal subendocardial injury Abnormal ECG When compared with ECG of 23-APR-2022 10:33, Atrial fibrillation has replaced Sinus rhythm Vent. rate has increased BY [address] now depressed in Anterolateral leads T wave inversion now evident in Anterior leads Confirmed by Bal Kimball ([id number]) on 05/06/2022 11:36:59 AM Referred By: Vilma Kaiser Confirmed By:Bal Kimball
[2022-05-06] MEDS: PIPERACILLIN/TAZOBACTAM 3.375 GM in DEXTROSE 5% 100 ML IV SCH ×2 (12:49→20:51)
--- NOTE | 2022-05-06 14:32 | XCELERA ---
[id number]
[2022-05-06] MEDS: ACETAMINOPHEN 325 MG TAB PO PRN (17:36)
[2022-05-06] MEDS: MIRTAZAPINE TAB 15 MG TAB PO SCH (20:43)
[2022-05-06] MEDS: risperiDONE 0.5 MG TABLET PO SCH (20:43)
[2022-05-06] MEDS: TAMSULOSIN HCL 0.4 MG CAP PO SCH (20:44)
[2022-05-07] MEDS: PIPERACILLIN/TAZOBACTAM 3.375 GM in DEXTROSE 5% 100 ML IV SCH (05:40)
[2022-05-07 06:43] LABS: Basophils # (auto) 0.01 K/uL (0-0.2); Basophils % (auto) 0.2 %; Hematocrit (blood only) 30.2 % (40.1-51.0); Hemoglobin 9.7 g/dl (14.0-18.0); Immature Granulocytes # (auto) 0.08 K/uL (0.00-0.02); Immature Granulocytes % (auto) 1.3 %; Lymphocytes # (auto) 0.89 K/uL (1.2-3.4); Lymphocytes % (auto) 13.9 %; Mean Corpuscular Hemoglobin 28.7 pg (25.0-34.0); Mean Corpuscular Hgb Conc 32.1 g/dL (32.0-36.0); Mean Corpuscular Volume 89.3 fL (80.0-100.0); Mean Platelet Volume 9.4 fL (9.4-12.4); Monocytes # (auto) 0.24 K/uL (0.24-0.82); Monocytes % (auto) 3.8 %; Neutrophils # (auto) 5.16 K/uL (1.4-6.5); Neutrophils % (auto) 80.8 %; Platelet Count 213 K/uL (130-400); RDW Coefficient of Variation 19.5 % (11.5-14.5); RDW Standard Deviation 59.9 fL (36.4-46.3); Red Blood Count 3.38 M/uL (4.63-6.08); White Blood Count 6.38 K/ul (4.8-10.8)
[2022-05-07 07:08] LABS: Albumin Globulin Ratio 1.1 (0.9-2); Albumin Level 2.9 gm/dl (3.4-5.0); BUN Creatinine Ratio 27.7 (10-20); Bilirubin,Total 0.7 mg/dl (0.2-1.0); Calcium 8.9 mg/dl (8.5-10.1); Creatinine Clr Calc Pharmacy 85.1 ml/min; Est GFR (African American) 108.8 ml/min; Est GFR (Non-African American) 93.8 ml/min; Globulin 2.7 gm/dl (2.5-4.0); Magnesium 1.9 mg/dl (1.7-2.4); Potassium 3.8 mmol/L (3.5-5.1); Total Protein 5.6 gm/dl (6.0-8.3)
[2022-05-07] MEDS: SODIUM CHLOR 7% 4 ML NEB NEB SCH ×2 (07:12→19:42)
[2022-05-07] MEDS: ACETYLCYSTEINE 20% INHAL SOLN 4ML ***DISPENSED BY RESP. INH SCH ×2 (07:19→19:42)
[2022-05-07] MEDS: ALBUT/IPRATROP 3MG/0.5MG NEB 3 ML VIAL NEB SCH ×2 (07:31→19:41)
[2022-05-07] MEDS ORDERED: POTASSIUM CHLORIDE CRTAB 20 MEQ TABCR PO STA (07:52)
[2022-05-07] MEDS ORDERED: MAGNESIUM SULFATE / D5W 1 GM/100 ML BAG IV ONE (08:00)
[2022-05-07] MEDS: FOLIC ACID 1 MG TAB PO SCH (08:04)
[2022-05-07] MEDS: PANTOprazole 40 MG TAB PO SCH (08:04)
[2022-05-07] MEDS: UMECLIDINIUM/VILANTEROL 62.5/25MCG 7 PUFFS/INHALER INH SCH (08:04)
[2022-05-07] MEDS: SENNA 8.6 MG TAB PO SCH (08:04)
[2022-05-07] MEDS: dexAMETHasone 4 MG TAB PO SCH ×2 (08:05→20:43)
[2022-05-07] MEDS: POLYETHYLENE (MIRALAX) 17 GM PACK PO SCH (08:09)
[2022-05-07] MEDS: cefTRIAXone SODIUM 1,000 MG in DEXTROSE 5% 50 ML IV SCH (08:47)
--- NOTE | 2022-05-07 10:31 | Pulmonology Progress Note ---
Date of Service May 07, 2022 Assessment & Plan (1) Urinary retention: (2) Toxic encephalopathy: (3) Squamous cell lung cancer: (4) COVID: (5) Acute on chronic respiratory failure with hypoxemia: (6) Lung collapse: Plan CT scan 05/04/2022 personally reviewed: Centrilobular emphysema appreciated There is mucous plugging of the left main resulting in total collapse of the left lung, cavitary mass also appreciated Significant mediastinal lymphadenopathy which is unchanged. --Left lung collapse Likely from mucous plugging Continue with Mucomyst and hypertonic saline Continue with CoughAssist S/p bronchoscopy 05/05/2022 with clearing of the mucous plug. Klebsiella growing in the bronchial wash --> sensitive to Rocephin --> continue with antibiotic --Stage IV squamous cell carcinoma of the lung Patient is developing necrosis of the mass. With mets to the brain Following up with oncology I do not think patient has cavitary pneumonia. Patient has left lower lobe collapse because necrotizing mass is obstructing the left lower lobe bronchus The mucosa was very friable around the mass. 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 Continue with antibiotics for total of 7 days, transition to p.o. later during the course Overall prognosis of the patient is very poor. If there is any decline palliative care should be considered No further recommendation for pulmonary perspective. Please call directly with any questions Case was discussed with Dr. Chen Please note the above document was generated using voice recognition software. It may contain grammatical, syntax or spelling errors.Any formal questions or concerns about the content, text or information contained within the body of t his dictation should be directly addressed to the provider for clarification. Admission and Anticipated Discharge Date Admission Date: April 23, 2022 Subjective Patient seen and examined at bedside. No acute distress, no adverse events overnight. Patient was more alert today. Answering all questions appropriately He was saturating 90-91% on room air Denies any chest pain Review of Systems Review of Systems: All systems reviewed & are unremarkable except as noted in Subjective Physical Exam Physical Exam: Constitutional: No acute distress, frail-appearing HEENT: EOMI, PERRLA Respiratory system: Decreased air entry in the left side, positive crackles left side, no wheeze, no rhonchi CVS: S1-S2 positive, no murmurs or gallops Abdomen: Soft, nontender, nondistended, positive bowel sounds x4 Extremities: +2 pulses bilaterally radialis/ dorsalis pedis, no cyanosis, no edema Neuro: Awake alert oriented to self Psych: Normal mood and affect G/U: Positive Tucker Skin: no rashes, warm and dry Lymphatic: no cervical or axillary lymphadenopathy Results & Data Results & Data ([facility]) Vital Signs (Past 12 Hours) Vital Signs Temp Pulse Pulse Resp BP Pulse Ox O2 Del Method 05/07/22 08:00 Room Air 05/07/22 07:40 36.5 C 67 18 84/48 L 97 Room Air 05/07/22 07:00 47 L 05/07/22 07:14 50 L 14 96 Room Air 05/07/22 03:13 36.4 C L 65 18 90/46 L 92 Room Air 05/07/22 00:32 70 Laboratory Results 05/07/22 06:20 05/07/22 06:20 PG Care Time/CCT Total # of Minutes Spent Total Time Spent with Patient: Total time spent is greater than 50% in coordination of care (as documented) at patient's floor/unit and/or counseling patient: Coding Level of Care Code 96380 Subseq Hosp Care Lvl 2 Diagnoses Urinary retention R33.9 Toxic encephalopathy G92.9 Squamous cell lung cancer C34.90 COVID U07.1 Acute on chronic respiratory failure with hypoxemia J96.21 Lung collapse J98.19
--- NOTE | 2022-05-07 12:18 | Cardiology Progress Note ---
Date of Service May 07, 2022 Assessment & Plan (1) Paroxysmal A-fib: (2) Hypotension: (3) Hypomagnesemia: (4) Squamous cell lung cancer: Plan Episode of paroxysmal atrial fibrillation 2 days ago which appeared to be due to hyperadrenergic state post bronchoscopy and hypomagnesemia. Currently, he is in sinus with appropriate and even borderline tachycardic heart rate without any negative chronotropic medication. Since his atrial fibrillation seems to have been due to reversible causes, reasonable to maintain without negative chronotropic medication or anticoagulation. However, if he has any recurrence, would need to reconsider both rate/rhythm control medication and anticoagulation. Will sign off, please contact if any further cardiology issues. Thank you. Admission and Anticipated Discharge Date Admission Date: April 23, 2022 Subjective Patient denied any chest pain, dyspnea, palpitations, or lightheadedness. Telemetry showed sinus rhythm with occasional mild bradycardia (40-50 bpm at night) but generally normal heart rate (60-70 bpm). Physical Exam Physical Exam: No distress. BP 94/56 mmHg. Pulse 60 bpm and regular with occasional ectopy. Respirations unlabored. Skin: no generalized lesions. HEENT: unremarkable. Neck: Jugular venous pulse normal to slightly reduced, no obvious carotid bruits. Lungs: Decreased breath sounds left side, otherwise clear. No obvious wheezes or accessory muscle use. Cardiac: regular rhythm, no obvious murmur or gallop. Abdomen: benign. Extremities: no edema, pulses intact. Neurologic: normal affect, hard of hearing, grossly nonfocal. Results & Data ([facility]) Laboratory Results Normal electrolytes with potassium 3.8 and magnesium 1.9. BUN 18, creatinine 0.65. Diagnostic Findings Echocardiogram showed EF 55 to 60% with normal wall motion, mild AI/MR/TR, mild pulmonary hypertension. Normal CVP. PG Care Time/CCT Total # of Minutes Spent Total Time Spent with Patient: Total time spent is greater than 50% in coordination of care (as documented) at patient's floor/unit and/or counseling patient: Coding Level of Care Code 49993 Subseq Hosp Care Lvl 3 Diagnoses Paroxysmal A-fib I48.0 Hypotension I95.9 Hypomagnesemia E83.42 Squamous cell lung cancer C34.90
--- NOTE | 2022-05-07 13:15 | Palliative Care Consultation ---
Date of Consultation May 07, 2022 Assessment & Plan (1) Acute encephalopathy: Variable. Does not tolerate benzodiazepines. Talked with family about use of zyprexa or risperdal for agitation if needed. Per RN, he has not had agitated behavior since admission. (2) Generalized weakness: With poor po intake and protein calorie malnutrition in the setting of metastatic SCC. (3) Palliative care encounter: I met with Mrs. Koenig and her daughter to discuss goals of care. Unfortunately at this time, Keanu is not capable of decision making. His family realizes that his cancer is advanced and that his body is very frail. They feel that he would not consider this to be good quality of life and would not want to continue with cancer treatment or aggressive care. They have contacted [facility] to discuss support available to bring him home. I clarified with them that their focus at this time is on symptom management and comfort rather than disease management. They would prefer that he be at home until his dying time which they understand to likely be a matter of weeks. We discussed hospice care as best support available to care for him at home. We reviewed hospice benefit and services covered. We discussed medications for symptom management. They are unsure if they would want additional support beyond hospice care. Mrs. Koenig wants to take care of him at home and her two daughters are both teachers, off for the summer and available to help her at home. We reviewed heating worker available to assist with available resources if they feel that they need additional help at home. Discussed with case management. History of Present Illness Reason for Consultation: goals of care Requesting Physician: Dr. Chen Attending Physician: Kristin Chen MD History of Present Illness 76 yo gentleman diagnosed with metastatic SCC in February of this year. He has known lymphatic and brain mets. He did receive radiation therapy for brain mets, and had one course of chemoimmunotherapy with carboplatin/paclitaxel/pembrolizumab about a month ago. He has had poor appetite with a 32lb weight loss since February and an albumin of 2.1 on admission. His reports that he had been agitated and confused at home. He did not respond well to lorazepam which increased his agitation. During hospitalization he rea left lung collapse and underwent bronchoscopy and removal of mucous plugging. He has had subsequent LLL collapse. He did also have a period of afib with RVR which has resolved. He is awake but confused. He denies pain or dyspnea and is currently satting 93% on room air. He tells me that he has had two bottles of Boost today but is not interested in his lunch. Allergies Allergy/AdvReac Type Severity Reaction Status Date / Time Penicillins Allergy Unknown RXN Verified 04/03/22 13:12 UNKNOWN PER PT Home Medications Medication Instructions Recorded Confirmed Type multivitamin 1 tab PO QAM 11/26/21 04/23/22 History omega 0-kie-cfm-fish oil 1,000 mg 1 cap PO QAM 11/26/21 04/23/22 History (120 mg-180 mg) capsule (Fish Oil) Flutter Valve #1 ea 12/03/21 03/11/22 Rx albuterol sulfate 90 mcg/actuation 2 puff inhalation Q6H PRN 12/03/21 04/23/22 Rx aerosol inhaler Shortness Of Breath Or Wheezing #18 grams mirtazapine 15 mg tablet (Remeron) 15 mg PO QAM 04/03/22 04/23/22 History fluconazole 100 mg tablet 100 mg PO DAILY@1500 04/23/22 04/23/22 History (Diflucan) pembrolizumab 25 mg/mL intravenous 0 mg IV UD 04/23/22 04/23/22 History solution (Keytruda) umeclidinium 62.5 mcg-vilanterol 1 inh inhalation QAM 04/23/22 04/23/22 History 25 mcg/actuation powdr for inhalation (Anoro Ellipta) Patient History Medical History Abnormal chest CT Cavitary pneumonia Chronic bronchitis COPD (chronic obstructive pulmonary disease) Elevated cholesterol Ex-smoker Exertional shortness of breath Lyme disease Pathologic fracture Pneumonia Rapid atrial fibrillation Severe protein-calorie malnutrition Surgical History History of right hip replacement S/P bronchoscopy S/P left rotator cuff repair Status post right knee replacement Family History Brother Cancer Several brothers with cancer dx Father Cancer Mother Myocardial infarction Social History Smoking Status: Current some day smoker Hx Alcohol Use: Yes Hx Substance Use: No Preferred Language: Albanian Communication Ability: Effective Visual Impairment: No Limitations Hearing Ability: Hard of Hearing Filler Sifter Helper Required: No Beliefs That Will Affect Care: Amish marital status: Current Living Situation: Spouse current occupational status: retired Feels Safe at Home: No Is there a partner from a previous relationship who is making you feel unsafe now?: No caffeine: Yes Physical Activity Frequency: Does not Exercise Assistive Devices: Raised Toilet Seat, Walker and Wheelchair Review of Systems Review of Systems: ESAS Pain 0/3 Dyspnea 0/3 Anxiety 1/3 Fatigue 2/3 Drowsiness 0/3 PPS 40% Physical Exam Constitutional: + disheveled; no acute distress Respiratory: normal respiratory effort; no labored breathing Cardiovascular: Rate/Rhythm: regular rate and regular rhythm Musculoskeletal: Extremities: + muscle atrophy Neurologic: awake and + confused Genitourinary: Tucker for urinary retention Results & Data ([facility]) Vital Signs (Past 12 Hours) Vital Signs Temp Pulse Pulse Resp BP Pulse Ox O2 Del Method 05/07/22 11:03 97.7 F 61 17 94/56 L 93 Room Air 05/07/22 08:00 Room Air 05/07/22 07:40 97.7 F 67 18 84/48 L 97 Room Air 05/07/22 07:00 47 L 05/07/22 07:14 50 L 14 96 Room Air 05/07/22 03:13 97.5 F L 65 18 90/46 L 92 Room Air PG Care Time/CCT Total # of Minutes Spent Total Time Spent: 63 Total Time Spent with Patient: Total time spent is greater than 50% in coordination of care (as documented) at patient's floor/unit and/or counseling patient: goals of care, hospice, symptom management, family support and education, coordination of care Coding Level of Care Code 28742 Initial Inpt Care Lvl 2 Diagnoses Acute encephalopathy G93.40 Generalized weakness R53.1 Palliative care encounter Z51.5
--- NOTE | 2022-05-07 16:33 | Hospitalist Progress Note ---
Date of Service May 07, 2022 Assessment & Plan (1) Squamous cell lung cancer: Plan: Diagnosed in 02/2022 in the left lung. Stage 4 - mets to the liver, brain, lymph nodes, and now with recent evidence of mets to the bones on CT chest 04/22. s/p brain radiation & one dose of carboplatin/paclitaxel/pembrolizumab on 04/06/2022. Since starting chemotherapy, has had significant failure to thrive, weight loss, low appetite, and now here with anemia and thrombocytopenia secondary to antineoplastic therapy. Has required transfusional support throughout the stay. Failure to thrive has been severe-he still is only having a couple of boost per day and has no appetite since receiving his first round of chemotherapy CT head obtained due to confusion and known h/o brain mets. No new brain mets or CVA or ICH seen. Developed complete collapse of left lung on 05/04, was acutely requiring 6L O2. Appreciate pulmonary consult-now s/p bronch with mucus plugging removed, lung re-expanded but then left lower lobe collapse again as evidenced on CT chest repeated for hypotension on the evening of 05/05 Received Chest PT, cough assist device, lay on right side when in bed, other pulmonary toilet. Now weaned off O2 to room air again -treating for PNA again as below Had lengthy discussion with and daughter at bedside 05/06 regarding goals of care and possibility of transitioning to hospice.Patient was not able to participate in the conversation as he was sleeping. Family seems to think his current state is not a good QOL for him and that he would not want to continue this path. He most likely would not tolerate any further chemotherapy and family agrees with this. Now on 05/07, had Palliative discussion and plans in place to discharge to home tomorrow with hospice (2) Acute encephalopathy: Plan: developed worsening mental status after sedation for bronchoscopy on 05/05 Etiology hypoxia, medication SE as has a h/o benzo adverse /paradoxical reaction, and pneumonia, hypotension Had some lethargy, combativeness Slept all day on 05/06 but did not sleep all night 05/05 Increased Risperdal to 0.5mg po hs to help with agitation and rest sleep wake cycle. Now much improved on 05/07 weaned off supplemental O2, awake, alert, pleasant, eating a bit. Happy to be going home with hospice now Treating PNA with IV abx now Avoid benzos supportive care (3) Pneumonia: Plan: LLL. completed 7+ days of IV Unasyn for postobstructive pneumonia initially Then with worsening mucus plugging, LLL collapse, leukocytosis, and Klebsiella growing in bronch washings -change Zosyn to ceftriaxone and will plan to send home on po abx to finish out the course pulm toilet (4) Pancytopenia due to antineoplastic chemotherapy: Plan: s/p 3 units of PRBCs while here. Low platelets resolved. B12 level wnl. Folate is low-normal - giving folic acid 1mg Daily. Hgb down to 7.6. Did have some bleeding during bronch. Transfused 2 units PRBCs again on 05/06 especially in light of hypotension hgb improved to 9 today no further labs needed as going on hospice (5) Hypotension: Plan: worsened after bronch, could be due to sepsis from PNA? Vs blood loss anemia Runs soft at baseline Cortisol level normal on admission improved now somewhat with PRBC transfusion increased dexamethasone to 4mg po bid (6) Rapid atrial fibrillation: Plan: developed ROSENDO with rates in 160s s/p bronchoscopy on 05/05, with soft BPs although he always runs a little low on BPs new onset for him but has not been on tele so hard to say when started -transferred to PCU -gave IV lopressor 2.5mg IV x 1 and converted to sinus rhythm -remains in NSR since that time -appreciate consult Cardiology - ECHO with preserved EF, mildly elevated RVSP -replaced mag and potassium -no anticoagulation for now given ongoing anemia and brief Afib (7) Acute renal failure: Plan: resolved pre-renal (8) Paraphimosis: Plan: Developed such on 04/25/22. [facility] Urology consulted with successful reduction. Tried to d/c ruth 05/03 -- failed voiding trial, ruth placed back. Started flomax 0.4mg daily 05/03.can stop Flomax on dc as will have Ruth in place Will keep Ruth in on dc to home with hospice (9) Fecal impaction: Plan: resolved, then had severe diarrhea x 24 hrs which then resolved reports chronic, somewhat severe constipation. cont daily bowel regimen - senna + miralax. (10) Pathologic fracture: Plan: Right distal clavicle. Ideally should be in sling for such but no pain reported by him and minimal, if any, deformity noted on exam. follow. Had neck pain which does seem MSK in nature after positioning on table for bronchoscopy--> checked CT neck and no fractures or bony lesions continue tylenol prn pain (11) Severe protein-calorie malnutrition: Plan: 2nd to advanced cancer, ?COVID, etc. Cont remeron. Had delirium with trial of Marinol which was then stopped Cont dexamethasone - should help breathing, appetite, and bone pain. (12) COVID: Plan: Tested + on home test in early March by report. Cannot exclude that this is a new infection since March, but also possible that the PCR test is simply positive due to the prior infection. No treatment given for this now off precautions (13) Sacral decubitus ulcer: Plan: Wound care consulted Offload pressure (14) Generalized weakness: Plan: Multifactorial PT,OT when able (15) DVT prophylaxis: Plan: hold Lovenox due to worsening anemia and possible bleeding from bronchoscopy/tumor (16) Toxic encephalopathy: Plan: 2nd marinol - resolved also with mild hospital psychosis Cont risperdal as above (17) COPD (chronic obstructive pulmonary disease): Plan: with exacerbation -- had improved but now with left lung collapse as above continue dexamethasone inhalers / etc (18) Urinary retention: Plan: failed voiding trial 05/03 ruth placed back started flomax 0.4mg daily but will dc on hospice keep Ruth in, no need for outpt f/u with Urology on hospice Plan Dispo-continued stay, plan for transition to hospice at home tomorrow Consult Palliative Medicine appreciated Admission and Anticipated Discharge Date Admission Date: April 23, 2022 Subjective Pt much improved mentation today and is eating a little bit of food. He is in very good spirits as he now knows he is going home tomorrow. Family had meeting with Palliative and decision made to go home with hospice. He is weaned off O2 and denies SOB or pain anywhere. Tele with [facility] Review of Systems Review of Systems: All systems reviewed & are unremarkable except as noted in HPI & below Physical Exam Constitutional: + ill appearing and + cachectic; no acute distress Eyes: + anicteric sclerae ENMT: Nose: no external nose abnormality Neck: trachea midline, no thyromegaly Respiratory: normal respiratory effort; no labored breathing Auscultation: lungs clear to auscultation bilaterally and + diminished lung sounds (LLL); no crackles, no rhonchi and no wheezes Cardiovascular: RRR, no murmur, no edema Gastrointestinal (Abdomen): normal bowel sounds, soft, nontender, no hepatosplenomegaly Musculoskeletal: Extremities: extremities normal to inspection; no cyanosis and no clubbing Skin: no rashes, warm and dry Neurologic: moves all extremities and awake; no focal motor deficits Psychiatric: Orientation: alert, oriented to person and cooperative Results & Data Results & Data ([facility]) Vital Signs (Past 12 Hours) Vital Signs Temp Pulse Pulse Resp BP Pulse Ox O2 Del Method 05/07/22 14:15 61 05/07/22 14:48 36.6 C 63 22 90/44 L 93 Room Air 05/07/22 11:03 36.5 C 61 17 94/56 L 93 Room Air 05/07/22 08:00 Room Air 05/07/22 07:40 36.5 C 67 18 84/48 L 97 Room Air 05/07/22 07:00 47 L 05/07/22 07:14 50 L 14 96 Room Air Laboratory Results 05/07/22 05/07/22 05/06/22 Range/Units 06:20 06:20 09:45 WBC 6.38 (4.8-10.8) K/ul RBC 3.38 L (4.63-6.08) M/uL Hgb 9.7 L (14.0-18.0) g/dl Hct 30.2 L (40.1-51.0) % MCV 89.3 (80.0-100.0) fL MCH 28.7 (25.0-34.0) pg MCHC 32.1 (32.0-36.0) g/dL RDW Std Deviation 59.9 H (36.4-46.3) fL RDW Coeff of [place] 19.5 H (11.5-14.5) % Plt Count 213 (130-400) K/uL MPV 9.4 (9.4-12.4) fL Immature Gran % (Auto) 1.3 % Neut % (Auto) 80.8 % Lymph % (Auto) 13.9 % [place] % (Auto) 3.8 % Eos % (Auto) 0.0 % Baso % (Auto) 0.2 % Neut # (Auto) 5.16 (1.4-6.5) K/uL Lymph # (Auto) 0.89 L (1.2-3.4) K/uL [place] # (Auto) 0.24 (0.24-0.82) K/uL Eos # (Auto) 0.00 (0-0.50) K/uL Baso # (Auto) 0.01 (0-0.2) K/uL Immature Gran # (Auto) 0.08 H (0.00-0.02) K/uL Sodium 139 (136-145) mmol/L Potassium 3.8 (3.5-5.1) mmol/L Chloride 106 (98-107) mmol/L Carbon Dioxide 27 (21-32) mmol/L Anion Gap 6 (3-11) BUN 18 (6-23) mg/dl Creatinine 0.65 (0.6-1.4) mg/dl Est Cr Clr Drug Dosing 85.1 ml/min Est GFR ( Amer) 108.8 ml/min Est GFR (Non-Af Amer) 93.8 ml/min BUN/Creatinine Ratio 27.7 H (10-20) Glucose 147 H (70-99(Fasting)) mg/dl Calcium 8.9 (8.5-10.1) mg/dl Magnesium 1.9 (1.7-2.4) mg/dl Total Bilirubin 0.7 (0.2-1.0) mg/dl AST 7 L (13-39) U/L ALT 7 (7-52) U/L Alkaline Phosphatase 61 (34-104) U/L Total Protein 5.6 L (6.0-8.3) gm/dl Albumin 2.9 L (3.4-5.0) gm/dl Globulin 2.7 (2.5-4.0) gm/dl Albumin/Globulin Ratio 1.1 (0.9-2) Blood Type A Positive Antibody Screen NEGATIVE Crossmatch See Detail PG Care Time/CCT Total # of Minutes Spent Total Time Spent with Patient: Total time spent is greater than 50% in coordination of care (as documented) at patient's floor/unit and/or counseling patient: Coding Level of Care Code 21237 Subseq Hosp Care Lvl 2 Diagnoses Squamous cell lung cancer C34.90 Acute encephalopathy G93.40 Pneumonia J18.9 Pancytopenia due to antineoplastic chemotherapy D61.810; T45.1X5A Hypotension I95.9 Rapid atrial fibrillation I48.91 Acute renal failure N17.9 Paraphimosis N47.2 Fecal impaction K56.41 Pathologic fracture M84.40XA Severe protein-calorie malnutrition E43 COVID U07.1 Sacral decubitus ulcer L89.159 Generalized weakness R53.1 DVT prophylaxis Z29.9 Toxic encephalopathy G92.9 COPD (chronic obstructive pulmonary disease) J44.9 Urinary retention R33.9
[2022-05-07] MEDS: TAMSULOSIN HCL 0.4 MG CAP PO SCH (20:42)
[2022-05-07] MEDS: MIRTAZAPINE TAB 15 MG TAB PO SCH (20:42)
[2022-05-07] MEDS: risperiDONE 0.5 MG TABLET PO SCH (20:42)
[2022-05-08] MEDS: ALBUT/IPRATROP 3MG/0.5MG NEB 3 ML VIAL NEB SCH (06:56)
[2022-05-08] MEDS: ACETYLCYSTEINE 20% INHAL SOLN 4ML ***DISPENSED BY RESP. INH SCH (06:56)
[2022-05-08] MEDS: SODIUM CHLOR 7% 4 ML NEB NEB SCH (06:56)
--- NOTE | 2022-05-08 07:37 | Discharge Summary ---
Date of Service May 08, 2022 Admission HPI Per Admitting Provider 76yo M w/ hx of metastatic lung cancer who presents with failure to thrive at home. The patient was diagnosed with metastatic squamous cell carcinoma in 02/2022. He went to [facility] and was started on dose-reduced carboplatin/paclitaxel/pembrolizumab on 04/06/2022. It is meant to be Q3w, so he has only received that one dose. Prior to that, he received radiation therapy to 3 lesions in the brain that are presumed to be metastatic lesions. His family notes that over the last 2 weeks, he has stopped eating and drinking. No nausea, vomiting, or diarrhea as they had worried, but just no appetite. They have to push him to consume anything. He has lost about 13 lbs in 3 weeks. He has also stopped drinking and hadn't had any urine output in almost 2 days, so this is why they brought him in. The patient reports to me some left-sided chest pain, but denies any shortness of breath, any pain elsewhere. Denies fevers/chills. notes some constipation, but has been giving him Miralax. Principal Diagnosis Metastatic lung cancer, failure to thrive, Pneumonia, collapsed lung, pancytopenia, acute respiratory failure with hypoxia, acute encephalopathy Discharge Exam Constitutional + ill appearing and + cachectic; no acute distress Eyes + anicteric sclerae ENMT Nose: no external nose abnormality Neck trachea midline, no thyromegaly Respiratory normal respiratory effort; no labored breathing Auscultation: lungs clear to auscultation bilaterally and + diminished lung sounds (LLL); no crackles, no rhonchi and no wheezes Cardiovascular RRR, no murmur, no edema Gastrointestinal (Abdomen) normal bowel sounds, soft, nontender, no hepatosplenomegaly Musculoskeletal Extremities: extremities normal to inspection; no cyanosis and no clubbing Skin no rashes, warm and dry Neurologic moves all extremities and awake; no focal motor deficits Psychiatric Orientation: alert, oriented to person and cooperative Discharge Data Allergies Allergy/AdvReac Type Severity Reaction Status Date / Time Penicillins Allergy Unknown RXN Verified 04/03/22 13:12 UNKNOWN PER PT Consultations 04/23/22 14:16 ED Decision to Admit Stat 04/25/22 16:35 Consult Urology Routine 05/04/22 18:50 Consult Pulmonology Routine 05/05/22 14:56 Consult Cardiology Routine 05/06/22 16:36 Consult Palliative Care Routine Procedures Performed Operation Date: 05/05/22 12:00 Actual Procedures p Bronchoscopy (Bilateral) - Ariadna Rollins MD Ordered Studies 04/23/22 12:19 CT Abd and Pelvis [CT abd pelvis IV con only] Stat 04/29/22 17:[address] [CT head/brain wo con] Routine 05/04/22 18:42 CT chest diagnostic wo con Urgent 05/05/22 14:38 CT neck [CT cervical spine wo con] Urgent 05/05/22 21:50 CT angio chest PE protocol Urgent Hospital Course (1) Squamous cell lung cancer: Diagnosed in 02/2022 in the left lung. Stage 4 - mets to the liver, brain, lymph nodes, and now with recent evidence of mets to the bones on CT chest 04/22. s/p brain radiation & one dose of carboplatin/paclitaxel/pembrolizumab on 04/06/2022. Since starting chemotherapy, has had significant failure to thrive, weight loss, low appetite, and now here with anemia and thrombocytopenia secondary to antineoplastic therapy. Has required transfusional support throughout the stay. Failure to thrive has been severe-he still is only having a couple of boost per day and has no appetite since receiving his first round of chemotherapy CT head obtained due to confusion and known h/o brain mets. No new brain mets or CVA or ICH seen. Developed complete collapse of left lung on 05/04, was acutely requiring 6L O2. Appreciate pulmonary consult-now s/p bronch with mucus plugging removed, lung re-expanded but then left lower lobe collapse again as evidenced on CT chest repeated for hypotension on the evening of 05/05 Received Chest PT, cough assist device, lay on right side when in bed, other pulmonary toilet. Now weaned off O2 to room air again -treating for PNA again as below Had lengthy discussion with and daughter at bedside 05/06 regarding goals of care and possibility of transitioning to hospice.Patient was not able to participate in the conversation as he was sleeping. Family seems to think his current state is not a good QOL for him and that he would not want to continue this path. He most likely would not tolerate any further chemotherapy and family agrees with this. Now on 05/07, had Palliative discussion and plans in place to discharge to home today with hospice (2) Acute encephalopathy: developed worsening mental status after sedation for bronchoscopy on 05/05 Etiology hypoxia, medication SE as has a h/o benzo adverse /paradoxical reaction, and pneumonia, hypotension Had some lethargy, combativeness Slept all day on 05/06 but did not sleep all night 05/05 Increased Risperdal to 0.5mg po hs to help with agitation and rest sleep wake cycle. Now much improved on 05/07 weaned off supplemental O2, awake, alert, pleasant, eating a bit. Happy to be going home with hospice now Treating PNA with IV abx now and convert to po to finish out 7 day course Avoid benzos supportive care (3) Pneumonia: LLL. completed 7+ days of IV Unasyn for postobstructive pneumonia initially Then with worsening mucus plugging, LLL collapse, leukocytosis, and Klebsiella growing in bronch washings -change Zosyn to ceftriaxone and will plan to send home on po abx to finish out the course with 3 more days of cefdinir pulm toilet if able to with flutter valve (4) Pancytopenia due to antineoplastic chemotherapy: s/p 3 units of PRBCs given initially Low platelets resolved. B12 level wnl. Folate is low-normal - giving folic acid 1mg Daily. Hgb down to 7.6. Did have some bleeding during bronch. Transfused 2 units PRBCs again on 05/06 especially in light of hypotension hgb improved to 9 today no further labs needed as going on hospice (5) Hypotension: worsened after bronch, could be due to sepsis from PNA? Vs blood loss anemia Runs soft at baseline Cortisol level normal on admission improved now somewhat with PRBC transfusion (6) Rapid atrial fibrillation: developed ROSENDO with rates in 160s s/p bronchoscopy on 05/05, with soft BPs although he always runs a little low on BPs new onset for him but has not been on tele so hard to say when started -transferred to PCU -gave IV lopressor 2.5mg IV x 1 and converted to sinus rhythm -remains in NSR since that time -appreciate consult Cardiology - ECHO with preserved EF, mildly elevated RVSP -replaced mag and potassium -no anticoagulation for now given ongoing anemia and brief Afib (7) Acute renal failure: resolved pre-renal (8) Paraphimosis: Developed such on 04/25/22. [facility] [place] [facility] consulted with successful reduction. Tried to d/c ruth 05/03 -- failed voiding trial, ruth placed back. Started flomax 0.4mg daily 05/03.can stop Flomax on dc as will have Ruth in p lace Will keep Ruth in on dc to home with hospice (9) Fecal impaction: resolved, then had severe diarrhea x 24 hrs which then resolved reports chronic, somewhat severe constipation. cont daily bowel regimen - senna + miralax. (10) Pathologic fracture: Right distal clavicle. Ideally should be in sling for such but no pain reported by him and minimal, if any, deformity noted on exam. follow. Had neck pain which does seem MSK in nature after positioning on table for bronchoscopy--> checked CT neck and no fractures or bony lesions continue tylenol prn pain (11) Severe protein-calorie malnutrition: 2nd to advanced cancer, ?COVID, etc. Cont remeron. Had delirium with trial of Marinol which was then stopped Cont dexamethasone - should help breathing, appetite, and bone pain. (12) COVID: Tested + on home test in early March by report. Cannot exclude that this is a new infection since March, but also possible that the PCR test is simply positive due to the prior infection. No treatment given for this now off precautions (13) Sacral decubitus ulcer: Wound care consulted Offload pressure (14) Generalized weakness: Multifactorial PT,OT when able (15) DVT prophylaxis: hold Lovenox due to worsening anemia and possible bleeding from bronchoscopy/tumor (16) Toxic encephalopathy: 2nd marinol - resolved also with mild hospital psychosis Cont risperdal as above (17) COPD (chronic obstructive pulmonary disease): with exacerbation -- had improved but now with left lung collapse as above continue dexamethasone inhalers / etc (18) Urinary retention: failed voiding trial 05/03 ruth placed back started flomax 0.4mg daily but will dc on hospice keep Ruth in, no need for outpt f/u with Urology on hospice Plan Dispo-continued stay, plan for transition to hospice at home today Consult Palliative Medicine appreciated Total Time Total Time Spent Total Time Spent (In Minutes): 35 min Discharge Plan Discharge Items Patient Disposition: Hospice - Home Reason For Visit: METASTATIC LUNG CANCER, ANEMIA Discharge Diagnosis: Metastatic lung cancer, failure to thrive, Pneumonia, collapsed lung, pa ncytopenia, acute respiratory failure with hypoxia, acute encephalopathy Condition on Discharge: Fair Activity: As commented below Bathing: No limitations Exercise/Sports: As tolerated Non-emergency contact: Primary Care Provider Call non-emergency contact if: you have any medication questions, your symptoms worsen, your pain is not controlled and your pain is worsening Follow-up/Referrals: Keanu Hayes PA-C [Primary Care Provider] - (You don't have to follow up with your PCP after you enroll in hospice at home.) Diet: Regular Diet Texture: Easy to Chew Addtl Attending Provider Instructions: You are going home with hospice to focus on comfort due to having metastatic lung cancer. You can take the liquid morphine as needed for pain or breathlessness. You can take the risperdal at bedtime for sleep and as needed for agitation or even for nausea during the day. Please finish out 3 more days of the antibiotic called cefdinir for your pneumonia. You were also started on dexamethasone to help with inflammation in th elungs as well as to stimulate appetite. You can continue taking this (along with Protonix to prevent stomach upset) if you desire. It was my pleasure to take care of you and I wish you the best at home! -Kristin Chen M.D. Pending Studies at Discharge: No Stand-Alone Forms: [facility] Medications and DC Order Prescriptions: New acetaminophen 325 mg Tablet 650 mg PO Q4H PRN (Reason: mild-moderate pain) Qty: 30 0RF Rx Instructions: OTC risperidone 0.5 mg Tablet 0.5 mg PO BID PRN (Reason: insomnia or agitation) Qty: 30 0RF dexamethasone 4 mg Tablet 4 mg PO DAILY Qty: 30 0RF sennosides [Senokot] 8.6 mg Tablet 17.2 mg PO QAM PRN (Reason: constipation) Qty: 60 0RF Rx Instructions: OTC morphine concentrate 100 mg/5 mL (20 mg/mL) solution 5 mg PO Q6H PRN (Reason: moderate-severe pain) Qty: 30 0RF cefdinir 300 mg capsule 300 mg PO BID Qty: 6 0RF pantoprazole 40 mg Tablet,Delayed Release (Dr/Ec) 40 mg PO QAM Qty: 30 0RF Continued mirtazapine [Remeron] 15 mg tablet 15 mg PO QAM albuterol sulfate 90 mcg/actuation HFA aerosol inhaler 2 puff inhalation Q6H PRN (Reason: Shortness Of Breath Or Wheezing) Qty: 18 4RF (DME) Flutter Valve Device See Rx Instructions .MEDSUPPLY Qty: 1 0RF Rx Instructions: Use it every 6 hours when awake. Anoro Ellipta 62.5-25 mcg/actuation blister with device 1 inh inhalation QAM Discontinued multivitamin Tablet 1 tab PO QAM omega [id number] oil [Fish Oil] 1,000 mg (120 mg-180 mg) capsule 1 cap PO QAM fluconazole [Diflucan] 100 mg Tablet 100 mg PO DAILY@1500 Keytruda 25 mg/mL Solution 0 mg IV UD Discharge Orders: Discharge Order (Routine); Ordered 05/08/22 Ordered By: Kristin Chen Admission Data Admit Date/Time: 04/23/22 15:20 Attending Provider: Kristin Chen Admit Provider: Jan Monique Primary Care Provider: Keanu Hayes Other Providers: [place] ; Jan Monique ; Russ Lauren ; Ariadna Rollins ; Nicolas Beatty ; Leonor Ariza ; [facility] Other Interventions: Discharge Summary Assessment (RN) Last Done: 05/08/22 08:14 Coding Level of Care Code D/C DAY MANAGEMENT >30 MINS Diagnoses Squamous cell lung cancer C34.90 Acute encephalopathy G93.40 Pneumonia J18.9 Pancytopenia due to antineoplastic chemotherapy D61.810; T45.1X5A Hypotension I95.9 Rapid atrial fibrillation I48.91 Acute renal failure N17.9 Paraphimosis N47.2 Fecal impaction K56.41 Pathologic fracture M84.40XA Severe protein-calorie malnutrition E43 COVID U07.1 Sacral decubitus ulcer L89.159 Generalized weakness R53.1 DVT prophylaxis Z29.9 Toxic encephalopathy G92.9 COPD (chronic obstructive pulmonary disease) J44.9 Urinary retention R33.9
[2022-05-08] MEDS: dexAMETHasone 4 MG TAB PO SCH (07:58)
[2022-05-08] MEDS: PANTOprazole 40 MG TAB PO SCH (07:59)
[2022-05-08] MEDS: SENNA 8.6 MG TAB PO SCH (07:59)
[2022-05-08] MEDS: FOLIC ACID 1 MG TAB PO SCH (07:59)
[2022-05-08] MEDS: UMECLIDINIUM/VILANTEROL 62.5/25MCG 7 PUFFS/INHALER INH SCH (07:59)
[2022-05-08] MEDS: POLYETHYLENE (MIRALAX) 17 GM PACK PO SCH (08:06)
[2022-05-08] MEDS: cefTRIAXone SODIUM 1,000 MG in DEXTROSE 5% 50 ML IV SCH (08:06)
== END 2022-05-08 09:17 | disposition hospice, home (50) | DRG 180 ==
LOC: ED 09:46 → 2S 15:20 → SUATTDRO 15:20 → 2S 17:53 → 3N 05-05 10:30 → 2E 05-05 14:48